=== PATIENT | female | born 1965 | race Caucasian/White ===

== ENCOUNTER 2019-04-22 10:20 | Emergency (ER) | payer BC, SELFPAY ==
[2019-04-22 10:21] VITALS: BP 136/85; PULSE 85; RESP 16; TEMP 36.8; O2SAT 94; BMI 28.3
--- NOTE | 2019-04-22 10:30 | CT_ITS ---
STUDY: CT ABDOMEN AND PELVIS WITH CONTRAST REASON FOR EXAM: Female, 54 years old. Several day history of right lower quadrant pain. RADIATION DOSAGE (If Supplied By Facility): CTDIvol = ( 16.99 ) mGy, DLP = ( 1158.19 ) mGycm TECHNIQUE: Transaxial images were obtained from the dome of the diaphragm to the symphysis pubis without oral contrast. 100 IV Isovue 370 was administered. Sagittal and coronal images were reconstructed. Individualized dose optimization techniques were used for this CT. COMPARISON: None. FINDINGS: The visualized lung bases are unremarkable. The visualized portions of the heart are within normal limits. There is decreased attenuation of the liver consistent with steatosis. There are surgical clips in the gallbladder fossa consistent with a prior cholecystectomy. There is a benign calcified granuloma of the spleen. Normal pancreas. I suspected 2.6 cm x 1.7 cm fat-containing nodule in the right adrenal gland suggestive of a myelolipoma. Normal right kidney. Normal left kidney. Normal visualized stomach. Normal small intestine. Moderate amount of fecal material is seen in the colon. The appendix is visualized and appears normal. Normal abdominal aorta. Normal inferior vena cava. Normal retroperitoneum. Normal urinary bladder. Normal abdominal wall. Normal osseous structures. CT/Abdomen/Pelvis W IV Cont ONLY IMPRESSION: Fatty infiltration of the liver. Findings suggestive of a 2.6 cm x 1.7 cm fat-containing nodule in the right adrenal gland. Electronically Signed: Eddy Tinajero, at 12:35 EDT , Service support ,
[2019-04-22 10:43] LABS: Bacteria 0 SEEN /hpf (None Seen); Mucous, Urine 0 SEEN /hpf (<or=2+); White Blood Cells 0 SEEN /hpf (0-5)
[2019-04-22 10:44] LABS: Color, Urine Yellow (Yellow); Glucose, Dipstick Normal (Normal); Ketone-Dipstick Negative (Negative); Leukocyte Esterase-Dipstick Negative /ul (Negative); Nitrite-Dipstick Negative (Negative); Occult Blood-Urine 10 /ul (Negative); Protein-Dipstick Negative (Negative); Specific Gravity, Urine 1.015 (1.002-1.030); Urine Bilirubin Dipstick Negative (Negative); Urine Clarity Sl. Cloudy (Clear); Urine Urobilinogen Normal (Normal)
[2019-04-22 10:49] LABS: Red Blood Cells-Urine 0-5 SEEN /hpf (0-5); Squamous Epithelial Cells - UA 0-5 SEEN /hpf (5-10)
[2019-04-22] MEDS: 0.9% Normal Saline 1,000 ML 1000 ML IV (10:58)
[2019-04-22] MEDS: Ketorolac 15 MG/ML Vial IV (10:58)
[2019-04-22] MEDS: Ondansetron 4 MG/2 ML Vial IV (10:58)
[2019-04-22 11:01] LABS: Absolute Lymphocyte Count 2.55 X10^3/ul (0.83-4.51); Absolute Neutrophil Count 5.7 X10^3/uL (2.0-7.7); Basophil# 0.02 X10^3/uL; Basophil% 0.2 % (0-1); Eosinophils% 1.1 % (0-5); Hematocrit 41.5 % (37-47); Hemoglobin 13.7 g/dl (12.0-15.0); Lymphocyte # 2.55 X10^3/ul (4.0); Lymphocyte % 28.4 % (19-41); Mean Corpuscular Hgb 30.5 pg (27.0-32.0); Mean Corpuscular Volume 92.4 fL (81-99); Mean Platelet Vol. 9.3 fl (6.2-12.0); Monocyte# 0.61 X10^3/uL; Monocyte% 6.8 % (0-10); Neutrophil # 5.68 X10^3/uL (2.7-7.7); Neutrophil % 63.3 % (47-70); Platelet Count 312 K/mm3 (150-450); RBC Distribution Width CV 13.4 % (11.6-14.6); RBC Distribution Width SD 45.3 fl (35.1-43.9); Red Blood Count 4.49 M/mm3 (4.2-5.4)
[2019-04-22 11:02] LABS: POSITIVE COUNT NO; POSITIVE DIFFERENTIAL NO; POSITIVE MORPHOLOGY NO
--- NOTE | 2019-04-22 11:02 | ED.DCSUM_ITS ---
- ER Visit Summary Date of Service: 04/22/19 Chief Complaint: Abdominal pain History of Present Illness: The patient is a 54 F presents to the emergency department with 3 days of intermittent left lower quadrant abdominal pain. The patient symptoms began about 3 days ago. States she had a dull ache in her right lower quadrant. She states the pain comes and goes. Today, it is worse. She also admits to some low back pain. She states it comes in waves. She has had prior cholecystectomy and hysterectomy. She is never had a kidney stone. She denies any fevers. She has not had any vomiting. She is still urinating without issue. Physical Examination: Vital signs reviewed General: Well-nourished, well-developed Head: Normocephalic, atraumatic Eyes: Pupils equal and reactive, extraocular muscles intact Neck, supple, no lymphadenopathy Heart: Regular rate and rhythm Respiratory: No distress, clear bilaterally Abdomen: Soft, mildly tender in the lumen right lower quadrant without rebound or guarding, nondistended, no peritoneal signs Back: Nontender Extremities: Nontender, no edema, no cords Skin: Normal color no rash Neuro: Alert and oriented, no focal or lateralizing deficits Test Results: [] Emergency Department Course and Treatment: IV was established. Patient was given Toradol, Zofran, and fluids. She had resolution of her pain. Her pain does wax and wane and there does seem to be a colicky portion to it. Her urine shows some trace blood. Rest of her labs are unremarkable. CT does not demonstrate any acute intra-abdominal abnormality. My suspicion is that she may have a small stone that she is in the past or we can just not visualized. The patient does not want any analgesics. She has a normal-appearing appendix. I do feel that she is safe for outpatient therapy. Patient will be discharged home. Treatment Plan: [] Disposition: Discharge Impression: 1. Right lower quadrant abdominal pain This note was generated with [employer] dictation software. It may contain incorrect words, spelling, and punctuation that were not noted in review of the chart prior to signing ED Disposition - Plan for ED Patient: Instructions: ED Abdominal Pain Unkn Cause Referrals: Jose Luis Araiza MD [Primary Care Provider] -
[2019-04-22 11:14] LABS: ALB/GLOB Ratio 0.7 RATIO (0.9-2.4); AST(SGOT) 19 U/L (15-37); Alanine Aminotransfer ALT/SGPT 26 U/L (13-56); Albumin, Serum 3.5 g/dL (3.2-5.0); Alkaline Phosphatase 106 U/L (45-117); Anion Gap 9 (5-15); BUN 12 mg/dL (7-18); BUN/Creat Ratio 11.3 RATIO (10-20); Chloride 104 mmol/L (98-107); Creatinine, Serum 1.06 mg/dL (0.55-1.02); EST Glomerular Filtration Rate 58 mL/min (>60); Est Glom Filt Rate - Afr Amer 70 mL/min (>60); Estimated Creatinine Clearance 55.86 ml/min; Globulin 5.2 g/dL (2.2-4.2); Glucose 84 mg/dL (74-106); Lipase 101 U/L (73-393); Potassium 3.8 mmol/L (3.5-5.1); Protein, Total 8.7 g/dL (6.4-8.2); Sodium Level 140 mmol/L (136-145)
[2019-04-22 12:51] VITALS: BP 126/86; PULSE 65; RESP 14; O2SAT 99
== END 2019-04-22 13:00 | disposition home or self-care (01) ==
PROVIDERS: Emergency Provider Emergency Medicine; Family Provider Family Medicine; PCP Family Medicine
DX: R10.31 Right lower quadrant pain (principal); R10.32 Left lower quadrant pain; M54.5 Low back pain; R11.0 Nausea; Z90.710 Acquired absence of both cervix and uterus; Z90.49 Acquired absence of other specified parts of digestive tract
CPT/HCPCS: 74177; 80053; 81001; 83690; 85025; 96361; 96374; 96375; 99284; J7030; Q9967; J2405

== ENCOUNTER 2025-09-21 11:35 | Observation (INO) | payer OTHER, SELFPAY ==
[2025-09-21] VITALS (17 sets, daily range): BP systolic 99–154; BP diastolic 70–113; PULSE 61–82; RESP 16–19; TEMP 36.5–36.7; O2SAT 95–100; BMI 31.2; BMI 34.7
--- NOTE | 2025-09-21 11:39 | EKG12_ITS ---
Test Reason : Blood Pressure : */* mmHG Vent. Rate : 70 BPM Atrial Rate : 70 BPM P-R Int : 138 ms QRS Dur : 82 ms QT Int : 402 ms P-R-T Axes : 31 -4 1 degrees QTcB Int : 434 ms Normal sinus rhythm Normal ECG Confirmed by EDUIN REYES, BRIGITTE ([id number]), video news editor HAJA CHANEL ([id number]) on 09/22/2025 9:17:55 AM Referred By: Confirmed By: BRIGITTE DENNY MD
--- NOTE | 2025-09-21 11:39 | CT_ITS ---
PROCEDURE: STROKE BRAIN/HEAD WITHOUT CONT 09/21/2025 REASON FOR EXAM: NEURO DEFICIT, ACUTE, STROKE SUSPECTED TECHNIQUE: Procedure Code: CTBR.ST Modality: CT Procedure: STROKE BRAIN/HEAD WITHOUT CONT Coronal and Sagittal reconstruction series were provided. One or more dose reduction techniques were used (e.g., Automated exposure control, adjustment of the mA and/or kV according to patient size, use of iterative reconstruction technique. RADIATION DOSE SUMMARY: CTDlvol: 44.99 mGy DLP: 745.49 mGycm COMPARISON: None. FINDINGS: Brain: Within normal limits for age. No acute restricted diffusion. No acute intracranial hemorrhage. No mass-effect or midline shift. The craniocervical junction is unremarkable. No orbital abnormalities. CSF Spaces: Unremarkable. Sinuses/Mastoids: Clear. Bones: No acute bony abnormalities. CT/STROKE Brain/Head without Cont IMPRESSION: Unremarkable CT head without acute intracranial abnormalities. Stroke Alert: No acute intracranial abnormalities The critical findings in the findings and impression above were relayed directl y by me by telephone to Jamin Joya on 09/21/2025 at 12:03 pm with readback verification. Reading Location: [facility]
--- NOTE | 2025-09-21 11:39 | CT_ITS ---
PROCEDURE: STROKE CTA HEAD AND NECK W/CON 09/21/2025 REASON FOR EXAM: NEURO DEFICIT, ACUTE, STROKE SUSPECTED TECHNIQUE: Procedure Code: CTCTA.ST.HN Modality: CT Procedure: STROKE CTA HEAD AND NECK W/CON Multiplanar Sagittal and Coronal images were obtained. 3D post processing was performed CONTRAST: Isovue 370 VOLUME: 100 mL One or more dose reduction techniques were used (e.g., Automated exposure control, adjustment of the mA and/or kV according to patient size, use of iterative reconstruction technique). RADIATION DOSE SUMMARY: CTDlvol: 39.89 mGy DLP: 700.30 mGycm COMPARISON: 09/21/2025 FINDINGS: Aortic Arch: Normal size and branching pattern. No significant atherosclerotic plaque. Brachiocephalic and Subclavians: Unremarkable RIGHT Carotid: Right CCA: Unremarkable. Right ICA: Unremarkable. Maximum stenosis (NASCET): 0 % Right ECA: Unremarkable. LEFT Carotid: Left CCA: Unremarkable. Left ICA: Unremarkable. Maximum stenosis (NASCET): 0 % Left ECA: Unremarkable. Vertebrals: Codominant. Arise from the subclavians. Both vertebrals form the basilar. RIGHT Vertebral: Unremarkable. LEFT Vertebral: Unremarkable. Anatomy: Robinson of [place] anatomy is normal. Aneurysm or avm: No intracranial aneurysms or large vascular malformations are identified. Anterior cerebral arteries: Unremarkable: Middle cerebral arteries: Unremarkable. Basilar artery: Unremarkable. Posterior cerebral arteries: Unremarkable. Other major branches of the posterior circulation: Unremarkable. Major venous structures: Unremarkable. Other findings: No suspicious enhancing lesion, no airway narrowing or deviation. No suspicious adenopathy. Bony structures show degenerative change. Thyroid gland is unremarkable, lung apices are clear CT/STROKE CTA Head AND Neck W/Con IMPRESSION: No CTA evidence of ICA or CCA stenosis No CTA evidence of intracranial stenosis or vaso occlusive disease No aneurysm or vascular malformation Patent vertebral arteries Reading Location: [id number]
--- NOTE | 2025-09-21 11:40 | EDS_ITS ---
HPI History of Present Illness Chief Complaint: Neuro S/Sx Narrative Narrative: Patient is a 60-year-old female with past medical history of asthma, diabetes, hypertension who presents to the emergency department with a chief complaint of changes in vision as well as dizziness and feeling off. States that her symptoms started this morning and notes that when she will look at people first thing she noted that it looked like they were in half it was both of her eyes she states that this is getting better now. She states that since she is still feeling off and not her normal so she came here to be further evaluated. States that she is not on any blood pressure medication. Denies any head injuries or traumas. PFSH PFSH Medical History no medical history Home Medications ?Medication ?Instructions ?Recorded ?Last Taken ?Type chgwige-xjxyuzdiqjdgh-eaprxpin 250 1 tab PO Q6H PRN pa in 09/21/25 09/18/25 History mg-250 mg-65 mg tablet (Excedrin Extra Strength) fluticasone propionate 50 1 spray intranasal BID 09/21 Unknown History mcg/actuation nasal spray,suspension tirzepatide 5 mg/0.5 mL 5 mg subcut QWEEK 09/21/25 1 11/14/24 History subcutaneous pen injector (Mouncarolro) Allergy/AdvReac Type Severity Reaction Status Date / Time latex Allergy Rash Verified 09/21/25 11:36 acetaminophen (From AdvReac Other Verified 09/21/25 11:36 Darvocet-N 100) propoxyphene (From AdvReac Other Verified 09/21/25 11:36 Darvocet-N 100) tramadol (From Ultram) AdvReac Other Verified 09/21/25 11:36 Family History no significant family his Surgical History no surgical history Social History Smoking Status: Never smoker alcohol intake: current alcohol intake frequency: a few times a week Alcohol type: wine ROS ROS ED ROS Narrative Constitutional: Denies any fevers, chills, headaches Eyes: Complains of changes in vision as noted above denies double vision Cardiovascular: Denies chest pain or palpitations Respiratory: Denies coughing wheezing shortness of breath Abdomen: Denies abdominal pain nausea vomit diarrhea : Denies any urinary symptoms Neurological: Denies any numbness, weakness, tingling Musculoskeletal: Denies back pain Skin: Denies any rashes or lesions EXAM Physical Exam Narrative Exam Narrative: General: Patient was l evaluated in triage resting comfortably in the chair did not appear to be in acute distress Head: Atraumatic, normocephalic Eyes: PERRL bilaterally, EOMI bilaterally, no conjunctival injection noted no vertical or horizontal nystagmus noted on exam Neck: Soft, supple, trachea midline Cardiovascular: Regular rate and rhythm Respiratory: Clear to auscultation bilaterally Abdomen: Soft, nondistended, nontender to palpation Extremities: +5/5 strength noted in the bilateral upper and lower extremities Neurological: Patient following commands and that she was at [facility] year is 2024 Skin: Warm, dry, tact no rashes or lesions noted Const Vital Signs: 09/21/25 11:36 09/21/25 11:57 09/21/25 12:02 Temperature 97.9 F Temperature Source Oral Pulse Rate 77 80 Respiratory Rate 16 19 H Blood Pressure 154/113 H 152/113 H 131/85 H Blood Pressure Mean 126 126 100 Pulse Ox 100 100 Oxygen Delivery Method Room Air 09/21/25 12:07 09/21/25 12:09 09/21/25 13:00 Temperature Temperature Source Pulse Rate 77 70 Respiratory Rate 16 Blood Pressure 123/91 H 110/87 H Blood Pressure Mean 101 94 Pulse Ox 100 100 99 Oxygen Delivery Method Room Air Room Air 09/21/25 13:57 Temperature 97.9 F Temperature Source Pulse Rate 70 Respiratory Rate 16 Blood Pressure 110/87 H Blood Pressure Mean 94 Pulse Ox 99 Oxygen Delivery Method MDM MDM MDM Narrative Medical decision making narrative: Patient is a 60-year-old female who presented to the emergency department the chief complaint of changes in vision, dizziness not feeling well starting at 10:30 AM. On the differential diagnose includes but limited to intracranial hemorrhage, ischemic stroke, TIA, hypertensive emergency, electrolyte abnormality, ACS. Once the workup is obtained and reviewed she will be reevaluated. Patient is not a tenecteplase candidate as her symptoms are improving as she arrived here to the emergency department Patient CBC reviewed and showed no evidence leukocytosis white blood count 10.2, he was 13, plate count 329. Patient INR normal at 1, PT of 13.3. Patient sodium was noted to be normal at 137, potassium low indicating hypokalemia at 2.6 magnesium level be checked and she will be given 60 mill equivalents of supplementation here in the emergency department. Patient's creatinine was 0.61 and her calcium level low at 6.2 I did add a ionized calcium on and she will be given 2 g of calcium gluconate. Patient troponin was 6 with a EKG reviewed as well which showed sinus rhythm with a rate of 70 bpm ID interval 138. Patient CT head brain without contrast showed no acute intracranial findings. Patient CTA head and neck was reviewed which showed no evidence of large vessel occlusion and no vascular malformations noted patent vertebral arteries noted. Patient was evaluated by teleneurology Dr. Baptiste who states that the patient should be admitted for further stroke workup. Patient was given 325 mg of aspirin. Will discuss case with hospitalist for admission Discussed case with hospitalist Dr. Carlos huggins except patient for admission. Patient was notified is agreeable to plan all question concerns answered. Critical care time 37 minutes Lab Data Labs: Laboratory Results - last 24 hr 09/21/25 09/21/25 11:55 12:42 WBC 10.2 RBC 4.27 Hgb 13.0 Hct 39.2 MCV 91.8 MCH 30.4 MCHC 33.2 RDW Std Deviation 44.8 H RDW Coeff of Radha 13.2 Plt Count 329 MPV 9.4 Immature Gran % (Auto) 0.400 Neut % (Auto) 65.6 Lymph % (Auto) 26.7 [place] % (Auto) 6.6 Eos % (Auto) 0.4 Baso % (Auto) 0.3 Absolute Neuts (auto) 6.7 Absolute Lymphs (auto) 2.72 Nucleated RBC % 0 PT 13.3 INR 1.0 APTT 23.8 L Sodium 137 Potassium 2.6 L* Chloride 110 H Carbon Dioxide 18.2 L Anion Gap 10 BUN 10 Creatinine 0.61 L Estim Creat Clear Calc 93.12 Est GFR (MDRD) Non-Af 103 BUN/Creatinine Ratio 15.9 Glucose 80 Calcium 6.2 L* Troponin T High Sens 6 POC Glucose 89 Radiography Diagnostic Testing: Clinical Impression(s) from Imaging Studies Brain CT 09/21/25 11:39 IMPRESSION: Unremarkable CT head without acute intracranial abnormalities. Stroke Alert: No acute intracranial abnormalities The critical findings in the findings and impression above were relayed directly by me by telephone to Jamin Joya on 09/21/2025 at 12:03 pm with readback verification. Reading Location: [id number] Head/Neck CTA 09/21/25 11:39 IMPRESSION: No CTA evidence of ICA or CCA stenosis No CTA evidence of intracranial stenosis or vaso occlusive disease No aneurysm or vascular malformation Patent vertebral arteries Reading Location: [id number] Discharge Plan Dx/Rx/DC Orders Clinical Impression: Hypertension, Change in vision, Brain TIA, Dizziness Disposition Disposition: Acute Care Hospital [facility]
--- OUTSIDE RECORDS SUMMARY | 2025-09-21 11:54 | XMS RPT_ITS | CCD ---
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 130 Very High >130 ASCVD RISK THERAPEUTIC TARGET CATEGORY APO B (mg/dL) Very High Risk <80 (if extreme risk <70) High Risk <90 Moderate Risk <90 Performed At: [facility] [id number] Alex Shea MD Ph:[phone] Performed By: #### G FR, MG, CMP, 838762, VIDH, A1C, 388741, TSHR, LIPID, FES, FERR #### [address] [address] #### B12 #### [address] [address] MALBRon 02-21-2025 U Creatinine 148.3 mg/dL Normal [facility] Comment on above: Performed By: #### G FR, MG, CMP, 790531, VIDH, A1C, 999088, TSHR, LIPID, FES, FERR #### [address] [address] #### B12 #### [address] [address] U Microalb 7.4 mg/L Normal [facility] Comment on above: Performed By: #### G FR, MG, CMP, 953339, VIDH, A1C, 480057, TSHR, LIPID, FES, FERR #### [address] [address] #### B12 #### [address] [address] U Ratio Alb/Cre 5 mg/G Normal 0-30 [facility] Comment on above: Performed By: #### G FR, MG, CMP, 463862, VIDH, A1C, 230833, TSHR, LIPID, FES, FERR #### [address] [address] #### B12 #### [address] [address] APOBon 02-14-2025 Apolipoprotein B [Mass/Vol] Not performed Normal [facility] Comment on above: Result Comment: Test not performed. Insufficient specimen to perform or complete analysis. CONTACTED YOUR FACILITY VIA EMAIL ON 02-13-2025 Desirable < 90 Borderline High 90 - 99 High 100 - 130 Very High >130 ASCVD RISK THERAPEUTIC TARGET CATEGORY APO B (mg/dL) Very High Risk <80 (if extreme risk <70) High Risk <90 Moderate Risk <90 Performed At: [facility] [id number] Alex Shea MD Ph:[phone] Performed By: #### G FR, MG, CMP, 901901, VIDH, A1C, 305114, TSHR, LIPID, FES, FERR #### [address] [address] #### B12 #### [address] [address] LIPOAon 02-10-2025 Lipoprotein a [Moles/Vol] 18.8 nmol/L Normal <75.0 [facility] Comment on above: Result Comment: Note : Values greater than or equal to 75.0 nmol/L may indicate an independent risk factor for CHD, but must be evaluated with caution when applied to non- populations due to the influence of genetic factors on Lp(a) across ethnicities. Performed At: [facility] [id number] Ale Patton PhD Ph:[phone] Performed By: #### G FR, MG, CMP, 771971, VIDH, A1C, 799276, TSHR, LIPID, FES, FERR #### [address] [address] #### B12 #### [address] [address] .GFRon 02-07-2025 Estimated Glomerular Filtration Rate 71 ml/min/1.73sqm Normal [facility] Comment on above: Result Comment: Stages of Chronic Kidney Disease (CKD) Stage Description eGFR(ml/min/1.73 sq.m.) CKD 1 Normal kidney function or >=90 normal kindney function with possible kidney damage (ex. Proteinuria) CKD 2 Kidney damage with mild loss 60-89 of kidney function CKD 3a Mild to moderate loss of kidney 45-59 function CKD 3b Moderate to severe loss of 30-44 of kindey function CKD 4 Severe loss of kidney function 15-29 CKD 5 Kidney failure <15 Note: (go live 2024) the eGFR calculation was updated to the 2020 CKD-EPI creatinine equation without a race factor to calculate the eGFR results. Performed By: #### G FR, MG, CMP, 107358, VIDH, A1C, 466845, TSHR, LIPID, FES, FERR #### [address] [address] #### B12 #### [address] [address] A1Con 02-07-2025 Glucose [Mass/Vol] 128 mg/dL Normal [facility] Comment on above: Result Comment: Bethany mated Average Glucose calculated by equation ((28.7xA1C)-46.7) Estimated average glucose (eAG) is a calculated value from Hemoglobin A1C and is patient representative of the average blood glucose level in the last 2-3 month period. Normal range: less than 114 mg/dL Performed By: #### G FR, MG, CMP, 617072, VIDH, A1C, 561795, TSHR, LIPID, FES, FERR #### [address] [address] #### B12 #### [address] [address] HbA1c (Bld) [Mass fraction] 6.1 % Normal 4.3-6.4 [facility] Comment on above: Performed By: #### G FR, MG, CMP, 087659, VIDH, A1C, 657285, TSHR, LIPID, FES, FERR #### [address] [address] #### B12 #### [address] [address] B12on 02-07-2025 Cobalamin (Vitamin B12) [Mass/Vol] 443 pg/mL Normal 211-911 [facility] Comment on above: Performed By: #### G FR, MG, CMP, 738855, VIDH, A1C, 612678, TSHR, LIPID, FES, FERR #### [address] [address] #### B12 #### [address] [address] CMPon 02-07-2025 Albumin Level 3.5 G/dL Normal 3.5-5.0 [facility] Comment on above: Performed By: #### G FR, MG, CMP, 057799, VIDH, A1C, 050450, TSHR, LIPID, FES, FERR #### [address] [address] #### B12 #### [address] [address] Albumin/Globulin [Mass ratio] 0.7 {ratio} Low 1.1-2.5 [facility] Comment on above: Performed By: #### G FR, MG, CMP, 462591, VIDH, A1C, 200512, TSHR, LIPID, FES, FERR #### [address] [address] #### B12 #### [address] [address] ALP [Catalytic activity/Vol] 108 U/L Normal 40-135 [facility] Comment on above: Performed By: #### G FR, MG, CMP, 449320, VIDH, A1C, 462515, TSHR, LIPID, FES, FERR #### [address] [address] #### B12 #### [address] [address] ALT [Catalytic activity/Vol] 66 U/L High 14-59 [facility] Comment on above: Performed By: #### G FR, MG, CMP, 974126, VIDH, A1C, 985371, TSHR, LIPID, FES, FERR #### [address] [address] #### B12 #### [address] [address] AST [Catalytic activity/Vol] 39 U/L Normal 10-40 [facility] Comment on above: Performed By: #### G FR, MG, CMP, 977105, VIDH, A1C, 993837, TSHR, LIPID, FES, FERR #### [place] [address] #### B12 #### [place] [address] Bili Total 0.8 mg/dL Normal 0.2-1.0 [facility] Comment on above: Result Comment: Use of this assay is not recommended for patients undergoing treatment with eltrombopag due to the potential for falsely elevated results. Performed By: #### G FR, MG, CMP, 547619, VIDH, A1C, 322498, TSHR, LIPID, FES, FERR #### [place] [address] #### B12 #### [place] [address] BUN/Creatinine Ratio 13 ratio Normal 7-27 [facility] Comment on above: Performed By: #### G FR, MG, CMP, 488778, VIDH, A1C, 924218, TSHR, LIPID, FES, FERR #### [place] [address] #### B12 #### [place] [address] Calcium [Mass/Vol] 9.1 mg/dL Normal 8.4-10.2 [facility] Comment on above: Performed By: #### G FR, MG, CMP, 296139, VIDH, A1C, 104473, TSHR, LIPID, FES, FERR #### [address] [address] #### B12 #### [address] [address] Chloride [Moles/Vol] 104 mmol/L Normal 98-107 [facility] Comment on above: Performed By: #### G FR, MG, CMP, 461321, VIDH, A1C, 190438, TSHR, LIPID, FES, FERR #### [place] [address] #### B12 #### [address] [address] CO2 [Moles/Vol] 27 mmol/L Normal 22-29 [facility] Comment on above: Performed By: #### G FR, MG, CMP, 501255, VIDH, A1C, 355335, TSHR, LIPID, FES, FERR #### [place] [address] #### B12 #### [address] [address] Creatinine [Mass/Vol] 0.94 mg/dL Normal 0.55-1.02 [facility] Comment on above: Result Comment: Test ing performed on Siemens Dimension EXL analyzer using a modified kinetic Jenelle technique. Performed By: #### G FR, MG, CMP, 344281, VIDH, A1C, 887354, TSHR, LIPID, FES, FERR #### [place] [address] #### B12 #### [address] [address] Electrolyte Balance 7.0 mEq/L Normal 4.0-15.0 [facility] Comment on above: Performed By: #### G FR, MG, CMP, 068989, VIDH, A1C, 605645, TSHR, LIPID, FES, FERR #### [place] [address] #### B12 #### [address] [address] Globulin 4.9 G/dL High 1.5-3.8 [facility] Comment on above: Performed By: #### G FR, MG, CMP, 032876, VIDH, A1C, 169868, TSHR, LIPID, FES, FERR #### [address] [address] #### B12 #### [address] [address] Glucose [Mass/Vol] 99 mg/dL Normal 70-105 [facility] Comment on above: Performed By: #### G FR, MG, CMP, 999848, VIDH, A1C, 294426, TSHR, LIPID, FES, FERR #### [address] [address] #### B12 #### [address] [address] Potassium [Moles/Vol] 4.1 mmol/L Normal 3.5-5.1 [facility] Comment on above: Performed By: #### G FR, MG, CMP, 162135, VIDH, A1C, 010380, TSHR, LIPID, FES, FERR #### [address] [address] #### B12 #### [address] [address] Sodium [Moles/Vol] 138 mmol/L Normal 136-145 [facility] Comment on above: Performed By: #### G FR, MG, CMP, 249909, VIDH, A1C, 833873, TSHR, LIPID, FES, FERR #### [address] [address] #### B12 #### [address] [address] Total Protein 8.4 G/dL High 6.4-8.2 [facility] Comment on above: Performed By: #### G FR, MG, CMP, 556770, VIDH, A1C, 557732, TSHR, LIPID, FES, FERR #### [address] [address] #### B12 #### [address] [address] Urea nitrogen [Mass/Vol] 12 mg/dL Normal 7-18 [facility] Comment on above: Performed By: #### G FR, MG, CMP, 199465, VIDH, A1C, 789828, TSHR, LIPID, FES, FERR #### [place] [address] #### B12 #### [address] [address] Tati 02-07-2025 Ferritin [Mass/Vol] 88.0 ng/mL Normal 8.0-252.0 [facility] Comment on above: Performed By: #### G FR, MG, CMP, 776158, VIDH, A1C, 446508, TSHR, LIPID, FES, FERR #### [place] [address] #### B12 #### [address] [address] FESon 02-07-2025 Iron [Mass/Vol] 91 ug/dL Normal 50-170 [facility] Comment on above: Performed By: #### G FR, MG, CMP, 591326, VIDH, A1C, 190313, TSHR, LIPID, FES, FERR #### [place] [address] #### B12 #### [place] [address] Iron Sat 29 % Normal [facility] Comment on above: Performed By: #### G FR, MG, CMP, 906665, VIDH, A1C, 062006, TSHR, LIPID, FES, FERR #### [place] [address] #### B12 #### [place] [id number] TIBC 309 mcg/dL Normal 250-450 [facility] Comment on above: Performed By: #### G FR, MG, CMP, 472286, VIDH, A1C, 435585, TSHR, LIPID, FES, FERR #### [address] [address] #### B12 #### [address] [address] LIPIDon 02-07-2025 Cholesterol [Mass/Vol] 190 mg/dL Normal 0-200 [facility] Comment on above: Result Comment: Chol esterol Reference Interval: Less than 200 Desirable 200-239 Borderline high risk 240 and above High risk Performed By: #### G FR, MG, CMP, 125073, VIDH, A1C, 873691, TSHR, LIPID, FES, FERR #### [address] [address] #### B12 #### [address] [address] Cholesterol in HDL [Mass/Vol] 53 mg/dL Normal 40-60 [facility] Comment on above: Performed By: #### G FR, MG, CMP, 300933, VIDH, A1C, 276107, TSHR, LIPID, FES, FERR #### [address] [address] #### B12 #### [address] [address] Cholesterol in LDL [Mass/Vol] 122 mg/dL Normal 0-130 [facility] Comment on above: Performed By: #### G FR, MG, CMP, 084631, VIDH, A1C, 071211, TSHR, LIPID, FES, FERR #### [address] [address] #### B12 #### [address] [address] Triglyceride [Mass/Vol] 74 mg/dL Normal 0-150 [facility] Comment on above: Result Comment: Trig lyceride Reference Interval: Less than 150 Normal 150-199 Borderline high risk 200-499 High risk 500 or higher Very high risk Performed By: #### G FR, MG, CMP, 721532, VIDH, A1C, 329977, TSHR, LIPID, FES, FERR #### [address] [address] #### B12 #### [address] [address] MGon 02-07-2025 Magnesium [Mass/Vol] 1.9 mg/dL Normal 1.8-2.4 [facility] Comment on above: Performed By: #### G FR, MG, CMP, 045636, VIDH, A1C, 993499, TSHR, LIPID, FES, FERR #### [address] [address] #### B12 #### [place] [address] TSHRon 02-07-2025 TSH Qn 2.78 m[IU]/L Normal 0.36-3.74 [facility] Comment on above: Performed By: #### G FR, MG, CMP, 806069, VIDH, A1C, 561498, TSHR, LIPID, FES, FERR #### [address] [address] #### B12 #### [place] [address] VIDHon 02-07-2025 Vit. D 25-Hydroxy 11.8 ng/mL Normal [facility] Comment on above: Result Comment: Inte rpretive Values Based on Total 25(OH) Vitamin D: Deficient <20 ng/mL Insufficient 20 - <30 ng/mL Sufficient 30-100 ng/mL Performed By: #### G FR, MG, CMP, 822787, VIDH, A1C, 557557, TSHR, LIPID, FES, FERR #### [address] [address] #### B12 #### [place] [address] .Auto Diffon 12-05-2024 Basophil, Absolute 0.0 10 3/mcL Normal 0.0-0.2 [facility] Comment on above: Performed By: #### G FR, MG, CMP, 048655, VIDH, A1C, 407241, TSHR, LIPID, FES, FERR #### [place] [address] #### B12 #### [address] [address] Basophils/100 WBC (Bld) 0.5 % Normal 0.0-2.5 [facility] Comment on above: Performed By: #### G FR, MG, CMP, 448311, VIDH, A1C, 330042, TSHR, LIPID, FES, FERR #### [place] [address] #### B12 #### [address] [address] Eosinophil, Absolute 0.0 10 3/mcL Normal 0.0-0.7 [facility] Comment on above: Performed By: #### G FR, MG, CMP, 614256, VIDH, A1C, 717280, TSHR, LIPID, FES, FERR #### [place] [address] #### B12 #### [address] [address] Eosinophils/100 WBC (Bld) 0.5 % Normal 0.0-7.0 [facility] Comment on above: Performed By: #### G FR, MG, CMP, 259668, VIDH, A1C, 275788, TSHR, LIPID, FES, FERR #### [place] [address] #### B12 #### [address] [address] Lymphocyte, Absolute 2.6 10 3/mcL Normal 0.9-4.3 [facility] Comment on above: Performed By: #### G FR, MG, CMP, 427707, VIDH, A1C, 449873, TSHR, LIPID, FES, FERR #### [place] [address] #### B12 #### [address] [address] Lymphocytes/100 WBC (Bld) 53.8 % High 20.0-40.0 [facility] Comment on above: Performed By: #### G FR, MG, CMP, 796320, VIDH, A1C, 904522, TSHR, LIPID, FES, FERR #### [address] [address] #### B12 #### [address] [address] Monocyte, Absolute 0.5 10 3/mcL Normal 0.1-1.4 [facility] Comment on above: Performed By: #### G FR, MG, CMP, 950943, VIDH, A1C, 429654, TSHR, LIPID, FES, FERR #### [address] [address] #### B12 #### [address] [address] Monocytes/100 WBC (Bld) 10.2 % Normal 2.0-13.0 [facility] Comment on above: Performed By: #### G FR, MG, CMP, 351997, VIDH, A1C, 832140, TSHR, LIPID, FES, FERR #### [address] [address] #### B12 #### [address] [address] Neutrophils/100 WBC (Bld) 35.0 % Low 50.0-75.0 [facility] Comment on above: Performed By: #### G FR, MG, CMP, 962367, VIDH, A1C, 420172, TSHR, LIPID, FES, FERR #### [address] [address] #### B12 #### [address] [address] .GFRon 12-05-2024 GFR 68 ml/min/1.73sqm Normal [facility] Comment on above: Result Comment: GFR Population mean for , Non- Americans Ages 20-29 = 116 mL/min/1.73 sq.m. Ages 30-39 = 107 mL/min/1.73 sq.m. Ages 40-49 = 99 mL/min/1.73 sq.m. Ages 50-59 = 93 mL/min/1.73 sq.m. Ages 60-69 = 85 mL/min/1.73 sq.m. Ages 70+ = 75 mL/min/1.73 sq.m. Chronic Kidney Disease: Less than 60 mL/min/1.73 square meters End Stage Renal Disease: Less than 15 mL/min/1.73 square meters Performed By: #### G FR, MG, CMP, 481600, VIDH, A1C, 654436, TSHR, LIPID, FES, FERR #### [place] [address] [place], [place] [address] #### B12 #### [address] [address] GFR Non- 56 ml/min/1.73sqm Normal [facility] Comment on above: Result Comment: GFR Population mean for , Non- Americans Ages 20-29 = 116 mL/min/1.73 sq.m. Ages 30-39 = 107 mL/min/1.73 sq.m. Ages 40-49 = 99 mL/min/1.73 sq.m. Ages 50-59 = 93 mL/min/1.73 sq.m. Ages 60-69 = 85 mL/min/1.73 sq.m. Ages 70+ = 75 mL/min/1.73 sq.m. Chronic Kidney Disease: Less than 60 mL/min/1.73 square meters End Stage Renal Disease: Less than 15 mL/min/1.73 square meters Performed By: #### G FR, MG, CMP, 916436, VIDH, A1C, 225823, TSHR, LIPID, FES, FERR #### [place] [address] [place], [place] [address] #### B12 #### [address] [address] .MDWon 12-05-2024 Monocyte Distribution Width 25.64 High 0.00-20.00 [facility] Comment on above: Result Comment: For adults in ED, MDW>20.0 may be associated with a higher risk of sepsis during the first 12hrs of hospital admission Performed By: #### G FR, MG, CMP, 193607, VIDH, A1C, 322405, TSHR, LIPID, FES, FERR #### [address] [address] #### B12 #### [address] [address] .NEUABSon 12-05-2024 Neutrophil, Absolute 1.7 10 3/mcL Low 2.3-8.1 [facility] Comment on above: Performed By: #### G FR, MG, CMP, 839952, VIDH, A1C, 345097, TSHR, LIPID, FES, FERR #### [address] [address] #### B12 #### [address] [address] BMPon 12-05-2024 BUN/Creatinine Ratio 10 ratio Normal 7-27 [facility] Comment on above: Performed By: #### G FR, MG, CMP, 315842, VIDH, A1C, 127060, TSHR, LIPID, FES, FERR #### [place] [address] #### B12 #### [address] [address] Calcium [Mass/Vol] 8.6 mg/dL Normal 8.4-10.2 [facility] Comment on above: Performed By: #### G FR, MG, CMP, 993450, VIDH, A1C, 029390, TSHR, LIPID, FES, FERR #### [address] [address] #### B12 #### [address] [address] Chloride [Moles/Vol] 98 mmol/L Normal 98-107 [facility] Comment on above: Performed By: #### G FR, MG, CMP, 879564, VIDH, A1C, 559178, TSHR, LIPID, FES, FERR #### [address] [address] #### B12 #### [address] [address] CO2 [Moles/Vol] 35 mmol/L High 22-29 [facility] Comment on above: Performed By: #### G FR, MG, CMP, 664371, VIDH, A1C, 391396, TSHR, LIPID, FES, FERR #### [address] [address] #### B12 #### [address] [address] Creatinine [Mass/Vol] 1.02 mg/dL Normal 0.55-1.02 [facility] Comment on above: Result Comment: Test ing performed on Siemens Dimension EXL analyzer using a modified kinetic Jenelle technique. Performed By: #### G FR, MG, CMP, 274406, VIDH, A1C, 487184, TSHR, LIPID, FES, FERR #### [place] [address] #### B12 #### [address] [address] Electrolyte Balance 4.0 mEq/L Normal 4.0-15.0 [facility] Comment on above: Performed By: #### G FR, MG, CMP, 498053, VIDH, A1C, 981223, TSHR, LIPID, FES, FERR #### [address] [address] #### B12 #### [address] [address] Glucose [Mass/Vol] 91 mg/dL Normal 70-105 [facility] Comment on above: Performed By: #### G FR, MG, CMP, 154664, VIDH, A1C, 688007, TSHR, LIPID, FES, FERR #### [address] [address] #### B12 #### [address] [address] Potassium [Moles/Vol] 3.0 mmol/L Low 3.5-5.1 [facility] Comment on above: Performed By: #### G FR, MG, CMP, 700229, VIDH, A1C, 166261, TSHR, LIPID, FES, FERR #### [address] [address] #### B12 #### [address] [address] Sodium [Moles/Vol] 137 mmol/L Normal 136-145 [facility] Comment on above: Performed By: #### G FR, MG, CMP, 621453, VIDH, A1C, 516978, TSHR, LIPID, FES, FERR #### [address] [address] #### B12 #### [address] [address] Urea nitrogen [Mass/Vol] 10 mg/dL Normal 7-18 [facility] Comment on above: Performed By: #### G FR, MG, CMP, 121781, VIDH, A1C, 782142, TSHR, LIPID, FES, FERR #### [place] [address] #### B12 #### [address] [address] Erythrocyte distribution width (RBC) [Ratio] 13.0 % Normal 11.5-15.5 [facility] Comment on above: Performed By: #### G FR, MG, CMP, 994138, VIDH, A1C, 921950, TSHR, LIPID, FES, FERR #### [place] [address] #### B12 #### [address] [address] Hematocrit (Bld) [Volume fraction] 39.5 % Normal 34.0-46.0 [facility] Comment on above: Performed By: #### G FR, MG, CMP, 631768, VIDH, A1C, 903400, TSHR, LIPID, FES, FERR #### [place] [address] #### B12 #### [place] [address] Hgb 13.6 G/dL Normal 12.0-16.0 [facility] Comment on above: Performed By: #### G FR, MG, CMP, 398346, VIDH, A1C, 648693, TSHR, LIPID, FES, FERR #### [place] [address] #### B12 #### [place] [address] MCH (RBC) [Entitic mass] 31.0 pg Normal 27.0-33.0 [facility] Comment on above: Performed By: #### G FR, MG, CMP, 209757, VIDH, A1C, 608898, TSHR, LIPID, FES, FERR #### [place] [address] #### B12 #### [place] [address] MCHC 34.4 G/dL Normal 32.0-36.0 [facility] Comment on above: Performed By: #### G FR, MG, CMP, 661062, VIDH, A1C, 562929, TSHR, LIPID, FES, FERR #### [place] [address] #### B12 #### [place] [address] MCV (RBC) [Entitic vol] 90.1 fL Normal 80.0-99.0 [facility] Comment on above: Performed By: #### G FR, MG, CMP, 773536, VIDH, A1C, 166466, TSHR, LIPID, FES, FERR #### [place] [address] #### B12 #### [place] [address] Platelet 253 10 3/mcL Normal 150-450 [facility] Comment on above: Performed By: #### G FR, MG, CMP, 069321, VIDH, A1C, 622371, TSHR, LIPID, FES, FERR #### [place] [address] #### B12 #### [place] [address] Platelet mean volume (Bld) [Entitic vol] 7.0 fL Normal 6.6-10.5 [facility] Comment on above: Performed By: #### G FR, MG, CMP, 074003, VIDH, A1C, 869563, TSHR, LIPID, FES, FERR #### [place] [address] #### B12 #### [place] [address] RBC 4.39 10 6/mcL Normal 4.10-5.30 [facility] Comment on above: Performed By: #### G FR, MG, CMP, 371436, VIDH, A1C, 426547, TSHR, LIPID, FES, FERR #### [place] [address] #### B12 #### [place] [address] WBC 4.8 10 3/mcL Normal 4.5-10.8 [facility] Comment on above: Performed By: #### G FR, MG, CMP, 546053, VIDH, A1C, 696534, TSHR, LIPID, FES, FERR #### [place] [address] #### B12 #### [place] [address] CVFLURVon 12-05-2024 FLU A PCR Positive Abnormal Negative [facility] Comment on above: Performed By: #### C VFLURV #### [place] [address] FLU B PCR Negative Normal Negative [facility] Comment on above: Performed By: #### C VFLURV #### [place] [address] RSV PCR Negative Normal Negative [facility] Comment on above: Performed By: #### C VFLURV #### [facility] [address], [place] [address] SARS-CoV-2 (COVID-19) RNA LAURIE+probe Ql (Unsp spec) Negative Normal Negative [facility] Comment on above: Result Comment: Resu lts from the Xpert Xpress CoV-2/Flu/RSV plus test should be correlated with the clinical history, epidemiological data, and other data available to the clinical evaluating the patient. Performance of the Xpert Xpress CoV-2/Flu/RSV plus test has only been established in nasopharyngeal swab specimen. Erroneous test results might occur from improper specimen collection, failure to follow the recommended sample collection, handling and storage procedures, technical error, or sample mix-up. False negative results may occur if a virus is present at a level below the analytical limit of detection. Viral nucleic acid may persist in vivo, independent of virus viability. Detection of analyte target(s) does not imply that the corresponding virus(es) are infectious or are the causative agents for clinical symptoms. Recent patient exposure to FluMist or other live attenuated influenza vaccines may cause inaccurate positive results. Performed By: #### C VFLURV #### [facility] [address], [place] [address] LABORATORYOrdered By: SYSTEM SYSTEM on 12-05-2024 Troponin I.cardiac DL <= 0.01 ng/mL [Mass/Vol] ng/L Normal 0 - 51 ng/L AO ADM SS Comment on above: Interpretive Data: H igh Sensitive Troponin I Reference Ranges: Female: 0-51 ng/L Male: 0-76 ng/L Testing performed on [employer] using a homogeneous sandwich chemiluminescent immunoassay based on [employer] technology. Basophils (Bld) [#/Vol] 0.0 103/mcL Normal 0.0 - 0.2 10^3/mcL AO Workflow SS Basophils/100 WBC (Bld) 0.5 % Normal 0.0 - 2.5 % AO Workflow SS Calcium [Mass/Vol] 8.6 mg/dL Normal 8.4 - 10. 2 mg/dL AO ADM SS Chloride [Moles/Vol] 98 mmol/L Normal 98 - 10 7 mmol/L AO ADM SS CO2 [Moles/Vol] 35 mmol/L High 22 - 29 mmol/L AO ADM SS Creatinine [Mass/Vol] 1.02 mg/dL Normal 0.55 - 1.02 mg/dL AO ADM SS Comment on above: Interpretive Data: T esting performed on Siemens Dimension EXL analyzer using a modified kinetic Jenelle technique. Electrolyte Balance 4.0 mEq/L Normal 4.0 - 15 .0 mEq/L AO ADM SS Eosinophil, Absolute 0.0 103/mcL Normal 0.0 - 0 .7 10^3/mcL AO Workflow SS Eosinophils/100 WBC (Bld) 0.5 % Normal 0.0 - 7.0 % AO Workflow SS Erythrocyte distribution width (RBC) [Ratio] 13.0 % Normal 11.5 - 15.5 % AO Workflow SS GFR/1.73 sq M.predicted among blacks MDRD (S/P/Bld) [Vol rate/Area] 68 ml/min/1.73sqm Invalid Interpretation Code AO Chemistry S Comment on above: Interpretive Data: GFR Population mean for , Non- Americans Ages 20-29 = 116 mL/min/1.73 sq.m. Ages 30-39 = 107 mL/min/1.73 sq.m. Ages 40-49 = 99 mL/min/1.73 sq.m. Ages 50-59 = 93 mL/min/1.73 sq.m. Ages 60-69 = 85 mL/min/1.73 sq.m. Ages 70+ = 75 mL/min/1.73 sq.m. Chronic Kidney Disease: Less than 60 mL/min/1.73 square meters End Stage Renal Disease: Less than 15 mL/min/1.73 square meters GFR/1.73 sq M.predicted among non-blacks MDRD (S/P/Bld) [Vol rate/Area] 56 ml/min/1.73sqm Invalid Interpretation Code AO Chemistry S Comment on above: Interpretive Data: GFR Population mean for , Non- Americans Ages 20-29 = 116 mL/min/1.73 sq.m. Ages 30-39 = 107 mL/min/1.73 sq.m. Ages 40-49 = 99 mL/min/1.73 sq.m. Ages 50-59 = 93 mL/min/1.73 sq.m. Ages 60-69 = 85 mL/min/1.73 sq.m. Ages 70+ = 75 mL/min/1.73 sq.m. Chronic Kidney Disease: Less than 60 mL/min/1.73 square meters End Stage Renal Disease: Less than 15 mL/min/1.73 square meters Glucose [Mass/Vol] 91 mg/dL Normal 70 - 105 mg/dL AO ADM SS Hematocrit (Bld) [Volume fraction] 39.5 % Normal 34.0 - 46.0 % AO Workflow SS Hemoglobin (Bld) [Mass/Vol] 13.6 G/dL Normal 12.0 - 16.0 G/dL AO Workflow SS Lymphocytes (Bld) [#/Vol] 2.6 103/mcL Normal 0.9 - 4.3 10^3/mcL AO Workflow SS Lymphocytes/100 WBC (Bld) 53.8 % High 20.0 - 40.0 % AO Workflow SS MCH (RBC) [Entitic mass] 31.0 pg Normal 27.0 - 33.0 pg AO Workflow SS MCHC 34.4 G/dL Normal 32.0 - 36.0 G/dL AO Workflow SS MCV (RBC) [Entitic vol] 90.1 fL Normal 80.0 - 99.0 fL AO Workflow SS Monocyte distribution width Auto (Bld) [Entitic vol] 25.64 1 High 0.00 - 20.00 AO Workflow SS Comment on above: Result Comment: For adults in ED, MDW>20.0 may be associated with a higher risk of sepsis during the first 12hrs of hospital admission Monocytes (Bld) [#/Vol] 0.5 103/mcL Normal 0.1 - 1.4 10^3/mcL AO Workflow SS Monocytes/100 WBC (Bld) 10.2 % Normal 2.0 - 13.0 % AO Workflow SS Natriuretic peptide.B prohormone N-Terminal [Mass/Vol] 52 pg/mL Normal 0 - 125 pg/mL AO ADM SS Comment on above: Interpretive Data: N T-proBNP results of less than 300 pg/mL effectively rules out acute congestive heart failure with 99% negative predictive value. Neutrophils (Bld) [#/Vol] 1.7 103/mcL Low 2.3 - 8.1 10^3/mcL AO Workflow SS Neutrophils/100 WBC (Bld) 35.0 % Low 50.0 - 75.0 % AO Workflow SS Platelet mean volume (Bld) [Entitic vol] 7.0 fL Normal 6.6 - 10.5 fL AO Workflow SS Platelets (Bld) [#/Vol] 253 103/mcL Normal 150 - 450 10^3/mcL AO Workflow SS Potassium [Moles/Vol] 3.0 mmol/L Low 3.5 - 5.1 mmol/L AO ADM SS RBC (Bld) [#/Vol] 4.39 106/mcL Normal 4.10 - 5.3 0 10^6/mcL AO Workflow SS Sodium [Moles/Vol] 137 mmol/L Normal 136 - 145 mmol/L AO ADM SS Troponin I.cardiac DL <= 0.01 ng/mL [Mass/Vol] 8 ng/L Normal 0 - 51 ng/L AO ADM SS Comment on above: Interpretive Data: H igh Sensitive Troponin I Reference Ranges: Female: 0-51 ng/L Male: 0-76 ng/L Testing performed on TwoFish using a homogeneous sandwich chemiluminescent immunoassay based on [employer] technology. Urea nitrogen [Mass/Vol] 10 mg/dL Normal 7 - 18 mg/dL AO ADM SS Urea nitrogen/Creatinine [Mass ratio] 10 ratio Normal 7 - 27 ratio AO ADM SS WBC (Bld) [#/Vol] 4.8 103/mcL Normal 4.5 - 10.8 10^3/mcL AO Workflow SS LABORATORYOrdered By: Jennifer Stephens on 12-05-2024 FLUAV RNA LAURIE+probe Ql (Resp) Positive *ABN* (12/05/24 9:09 PM) Invalid Interpretation Code Negative AO Auto Urine SS FLUBV RNA LAURIE+probe Ql (Resp) Negative (12/05/24 9:09 PM) Normal Negative AO Auto Urine SS RSV RNA LAURIE+probe Ql (Resp) Negative (12/05/24 9:09 PM) Normal Negative AO Auto Urine SS SARS-CoV-2 (COVID-19) RNA LAURIE+probe Ql (Resp) Negative 6 (12/05/24 9:09 PM) Normal Negative AO Auto Urine SS Comment on above: Interpretive Data: R esults from the Xpert Xpress CoV-2/Flu/RSV plus test should be correlated with the clinical history, epidemiological data, and other data available to the clinical evaluating the patient. Performance of the Xpert Xpress CoV-2/Flu/RSV plus test has only been established in nasopharyngeal swab specimen. Erroneous test results might occur from improper specimen collection, failure to follow the recommended sample collection, handling and storage procedures, technical error, or sample mix-up. False negative results may occur if a virus is present at a level below the analytical limit of detection. Viral nucleic acid may persist in vivo, independent of virus viability. Detection of analyte target(s) does not imply that the corresponding virus(es) are infectious or are the causative agents for clinical symptoms. Recent patient exposure to FluMist or other live attenuated influenza vaccines may cause inaccurate positive results. PBNPon 12-05-2024 Natriuretic peptide B (Bld) [Mass/Vol] 52 pg/mL Normal 0-125 [facility] Comment on above: Result Comment: NT-p roBNP results of less than 300 pg/mL effectively rules out acute congestive heart failure with 99% negative predictive value. Performed By: #### G FR, MG, CMP, 817592, VIDH, A1C, 773317, TSHR, LIPID, FES, FERR #### [place] [address] #### B12 #### [address] 12-05-2024 High Sensitivity Troponin I <4 Normal 0-51 [facility] Comment on above: Result Comment: High Sensitive Troponin I Reference Ranges: Female: 0-51 ng/L Male: 0-76 ng/L Testing performed on TwoFish using a homogeneous sandwich chemiluminescent immunoassay based on [employer] technology. Performed By: #### G FR, MG, CMP, 459586, VIDH, A1C, 519643, TSHR, LIPID, FES, FERR #### [place] [address] #### B12 #### [place] [address] High Sensitivity Troponin I 8 ng/L Normal 0-51 [facility] Comment on above: Result Comment: High Sensitive Troponin I Reference Ranges: Female: 0-51 ng/L Male: 0-76 ng/L Testing performed on [employer]Fish using a homogeneous sandwich chemiluminescent immunoassay based on [employer] technology. Performed By: #### G FR, MG, CMP, 532144, VIDH, A1C, 584908, TSHR, LIPID, FES, FERR #### [place] [address] #### B12 #### [facility] [address] [place] [address] XR CHEST 1 VIEWon 12-05-2024 XR CHEST 1 VIEW ORIGINAL EXAMINATION: ONE XRAY VIEW OF THE CHEST12/05/2024 8:43 pm COMPARISON: None. HISTORY: ORDERING SYSTEM PROVIDED HISTORY: Reason for Exam: cough, headache, vomiting and diarrhea since monday. 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 There is no pulmonary vascular congestion. There is no focal consolidation. No significant volume pleural effusion. No pneumothorax. Slight elevation of the right hemidiaphragm. Right upper quadrant surgical clips. IMPRESSION: No acute cardiopulmonary process. Preliminary Report was Dictated by a Resident I have personally reviewed all of the images of this examination and agree with the resident findings and interpretation. Interpreted by: Adeel Melgar MD Preliminary Report By: Arturo Rodríguez Electronically signed By Adeel Melgar MD Dictated Date: 12/05/2024 9:13:28 PM Prelim Date: 12/05/2024 9:14:22 PM Sign Date: 12/05/2024 10:09:22 PM Ordering Provider: ELISABETH Solano [facility] CBC W Auto Differential pane l (Bld)on 06-08-2023 Basophils (Bld) [#/Vol] 0.04 10*3/uL <0.11 k/uL [facility] Basophils/100 WBC (Bld) 0.4 % [facility] Differential cell count method Nom (Bld) Auto [facility] Eosinophils (Bld) [#/Vol] 0.08 10*3/uL <0.46 k/uL [facility] Eosinophils/100 WBC (Bld) 0.8 % [facility] Erythrocyte distribution width (RBC) [Ratio] 12.8 % 11.5 - 15.0 % [facility] Hematocrit (Bld) [Volume fraction] 40.9 % 36.0 - 46.0 % [facility] Hemoglobin (Bld) [Mass/Vol] 13.2 g/dL 11.5 - 15.5 g/dL [facility] Immature granulocytes (Bld) [#/Vol] <0.10 k/uL [facility] Immature granulocytes/100 WBC (Bld) 0.2 % [facility] Lymphocytes (Bld) [#/Vol] 3.73 10*3/uL 1.00 - 4.00 k/uL [facility] Lymphocytes/100 WBC (Bld) 36.7 % [facility] MCH (RBC) [Entitic mass] 30.8 pg 26.0 - 34.0 pg [facility] MCHC (RBC) [Mass/Vol] 32.3 g/dL 30.5 - 36.0 g/dL [facility] MCV (RBC) [Entitic vol] 95.6 fL 80.0 - 100.0 fL [facility] Monocytes (Bld) [#/Vol] 0.74 10*3/uL <0.87 k/uL [facility] Monocytes/100 WBC (Bld) 7.3 % [facility] Neutrophils (Bld) [#/Vol] 5.56 10*3/uL 1.45 - 7.50 k/uL [facility] Neutrophils/100 WBC (Bld) 54.6 % [facility] Nucleated RBC (Bld) [#/Vol] <0.01 k/uL [facility] Nucleated RBC/100 WBC (Bld) [Ratio] 0.0 /100 WBC [facility] Platelet mean volume (Bld) [Entitic vol] 10.2 fL 9.0 - 12.7 fL [facility] Platelets (Bld) [#/Vol] 370 10*3/uL 150 - 400 k/uL [facility] RBC (Bld) [#/Vol] 4.28 10*6/uL 3.90 - 5.2 0 m/uL [facility] WBC (Bld) [#/Vol] 10.17 10*3/uL 3.70 - 11 .00 k/uL [facility] CNPNon 06-08-2023 CNPN Telephone (FAMPWS) JEIMY HENRIQUEZ ([id number]) 1965 F Date Time Provider Department 06/08/23 NO PCP FAMPWS During your visit today, we recorded the following information about you: Natty Mcgregor LPN 06/08/2023 10:09 AM Signed ----- Message from Haydee Araiza MD sent at 06/08/2023 8:04 AM EDT ----- A1c in prediabetic range at 5.8. recommend low carb diet and regular exercise as discussed in office. Other labs normal. No new rx. Natty Mcgregor LPN 06/08/2023 10:10 AM Signed Phoned patient to advise of reults and recommendations. Patient didn't answer and VM full. Maggie Guerrero RN 06/09/2023 2:50 PM Signed Phoned pt and gave provider's message below with verbalized understanding. Pt agreeable. Allergies As of Date: 06/08/2023 Noted Allergy Reaction ADHESIVE TAPE (ROSINS) 01/05/2010 DARVOCET-N 100 (PROPOXYPHENE N-AC*10/05/2009 Comments: Tongue blisters LATEX 12/28/2009 9 - Itching ULTRAM (TRAMADOL HCL) 05/17/2016 14 - Other: See Comments Comments: costa over entire body WELLBUTRIN (BUPROPION HCL) 04/08/2019 5 - Intolerance Comments: Hallucinations Date Reviewed: 06/07/2023 Reviewed by: Maru Cedra MA - Fully Assessed Reason for Visit: Results [95] Prescriptions as of 06/09/2023 - albuterol HFA (PROVENTIL HFA, VENTOLIN HFA) 90 mcg/actuation inhaler Inhale 2 Puffs as instructed every 6 hours as needed. Problem List As Of Date 06/08/2023 Noted Resolved Depression [F32.A] Fibromyalgia [M79.7] 09/18/2015 Abnormal mammogram [R92.8] 05/17/2016 Encounter Status:Closed by Maggie GUERRERO RN on 06/09/23 Normal [facility] metabolic 2000 panelon 06-08-2023 Albumin [Mass/Vol] 4.1 g/dL 3.9 - 4.9 g/dL [facility] ALP [Catalytic activity/Vol] 96 U/L 34 - 123 U/L [facility] ALT [Catalytic activity/Vol] 29 U/L 7 - 38 U/L [facility] Anion gap [Moles/Vol] 9 mmol/L 9 - 18 mmol/L [facility] AST [Catalytic activity/Vol] 31 U/L 13 - 35 U/L [facility] Bilirubin [Mass/Vol] 0.6 mg/dL 0.2 - 1 .3 mg/dL [facility] Calcium [Mass/Vol] 9.5 mg/dL 8.5 - 10. 2 mg/dL [facility] Chloride [Moles/Vol] 101 mmol/L 97 - 10 5 mmol/L [facility] CO2 [Moles/Vol] 28 mmol/L 22 - 30 mmol/L [facility] Creatinine [Mass/Vol] 0.97 mg/dL High 0.58 - 0.96 mg/dL [facility] Estimated Glomerular Filtration Rate 69 mL/min/1.73m >=60 mL/min/1.73m [facility] Glucose [Mass/Vol] 73 mg/dL Low 74 - 99 mg/dL [facility] Potassium [Moles/Vol] 4.1 mmol/L 3.7 - 5.1 mmol/L [facility] Protein [Mass/Vol] 8.2 g/dL High 6.3 - 8.0 g/dL [facility] Sodium [Moles/Vol] 138 mmol/L 136 - 144 mmol/L [facility] Urea nitrogen [Mass/Vol] 13 mg/dL 7 - 21 mg/dL [facility] LIPID PANEL, NONFASTINGon Cholesterol [Mass/Vol] 161 mg/dL <200 mg/dL [facility] HDL Cholesterol, Nonfasting 53 mg/dL >39 mg/dL [facility] LDL Cholesterol, Nonfasting 92 mg/dL <100 mg/dL [facility] LDL/HDL Ratio, Nonfasting 1.74 mg/dL <2.54 mg/dL [facility] Non HDL Cholesterol, Nonfasting 108 mg/dL <130 mg/dL [facility] Total Chol/HDL Ratio, Nonfasting 3.04 mg/dL <5.10 mg/dL [facility] Triglycerides, Nonfasting 78 mg/dL <150 mg/dL [facility] VLDL Cholesterol, Nonfasting 16 mg/dL <30 mg/dL [facility] CBC W Auto Differential pane l (Bld)on 06-07-2023 Basophils (Bld) [#/Vol] 0.04 10*3/uL Normal <0.11 [facility] Comment on above: Order Comment: Speci men Type: BLOOD SPECIMEN Ordering Facility: [facility] Address: [address] [place] [address] Performed By: #### 5 7021-8 #### [facility] CLIA [id number] [address] [place] [address] [place] Basophils/100 WBC (Bld) 0.4 % Normal [facility] Comment on above: Order Comment: Speci men Type: BLOOD SPECIMEN Ordering Facility: [facility] Address: [address] [place] [address] Performed By: #### 5 7021-8 #### [facility] CLIA [id number] [address] [place] [address] [place] Differential cell count method Nom (Bld) Auto Normal [facility] Comment on above: Order Comment: Speci men Type: BLOOD SPECIMEN Ordering Facility: [facility] Address: [address] [place] [address] Performed By: #### 5 7021-8 #### [facility] CLIA [id number] [address] [place] [address] [place] Eosinophils (Bld) [#/Vol] 0.08 10*3/uL Normal <0.46 [facility] Comment on above: Order Comment: Speci men Type: BLOOD SPECIMEN Ordering Facility: [facility] Address: [address] Performed By: #### 5 7021-8 #### [facility] CLIA [id number] [address] [place] [address] [place] Eosinophils/100 WBC (Bld) 0.8 % Normal [facility] Comment on above: Order Comment: Speci men Type: BLOOD SPECIMEN Ordering Facility: [facility] Address: [address] [place], [place] [address] Performed By: #### 5 7021-8 #### [facility] CLIA [id number] [address] [place] [address] [place] Erythrocyte distribution width (RBC) [Ratio] 12.8 % Normal 11.5-15.0 [facility] Comment on above: Order Comment: Speci men Type: BLOOD SPECIMEN Ordering Facility: [facility] Address: [address] [place], [place] [address] Performed By: #### 5 7021-8 #### [facility] CLIA [id number] [address] [place] [address] [place] Hematocrit (Bld) [Volume fraction] 40.9 % Normal 36.0-46.0 [facility] Comment on above: Order Comment: Speci men Type: BLOOD SPECIMEN Ordering Facility: [facility] Address: [address] [place], [place] [address] Performed By: #### 5 7021-8 #### [facility] CLIA [id number] [address] [place] [address] [place] Hemoglobin (Bld) [Mass/Vol] 13.2 g/dL Normal 11.5-15.5 [facility] Comment on above: Order Comment: Speci men Type: BLOOD SPECIMEN Ordering Facility: [facility] Address: [address] [place] [id number] Performed By: #### 5 7021-8 #### [facility] CLIA [id number] [address] [place] [address] [place] Immature granulocytes (Bld) [#/Vol] 10*3/uL Normal <0.10 [facility] Comment on above: Order Comment: Speci men Type: BLOOD SPECIMEN Ordering Facility: [facility] Address: [address] [place] [address] Performed By: #### 5 7021-8 #### [facility] CLIA [id number] [address] [place] [address] [place] Immature granulocytes/100 WBC (Bld) 0.2 % Normal [facility] Comment on above: Order Comment: Speci men Type: BLOOD SPECIMEN Ordering Facility: [facility] Address: [address] [place] [address] Performed By: #### 5 7021-8 #### [facility] CLIA [id number] [address] [place] [address] [place] Lymphocytes (Bld) [#/Vol] 3.73 10*3/uL Normal 1.00-4.00 [facility] Comment on above: Order Comment: Speci men Type: BLOOD SPECIMEN Ordering Facility: [facility] Address: [address] [place] [address] Performed By: #### 5 7021-8 #### [facility] CLIA [id number] [address] [place] [address] [place] Lymphocytes/100 WBC (Bld) 36.7 % Normal [facility] Comment on above: Order Comment: Speci men Type: BLOOD SPECIMEN Ordering Facility: [facility] Address: [address] [place], [place] [address] Performed By: #### 5 7021-8 #### [facility] CLIA [id number] [address] [place] [address] [place] MCH (RBC) [Entitic mass] 30.8 pg Normal 26.0-34.0 [facility] Comment on above: Order Comment: Speci men Type: BLOOD SPECIMEN Ordering Facility: [facility] Address: [address] [place], [place] [address] Performed By: #### 5 7021-8 #### [facility] CLIA [id number] [address] [place] [address] [place] MCHC (RBC) [Mass/Vol] 32.3 g/dL Normal 30.5-36.0 [facility] Comment on above: Order Comment: Speci men Type: BLOOD SPECIMEN Ordering Facility: [facility] Address: [address] Performed By: #### 5 7021-8 #### [facility] CLIA [id number] [address] [place] [address] [place] MCV (RBC) [Entitic vol] 95.6 fL Normal 80.0-100.0 [facility] Comment on above: Order Comment: Speci men Type: BLOOD SPECIMEN Ordering Facility: [facility] Address: [address] Performed By: #### 5 7021-8 #### [facility] CLIA [id number] [address] [place] [address] [place] Monocytes (Bld) [#/Vol] 0.74 10*3/uL Normal <0.87 [facility] Comment on above: Order Comment: Speci men Type: BLOOD SPECIMEN Ordering Facility: [facility] Address: [address] Performed By: #### 5 7021-8 #### [facility] CLIA [id number] [address] [place] [address] [place] Monocytes/100 WBC (Bld) 7.3 % Normal [facility] Comment on above: Order Comment: Speci men Type: BLOOD SPECIMEN Ordering Facility: [facility] Address: [address] Performed By: #### 5 7021-8 #### [facility] CLIA [id number] [address] [place] [address] [place] Neutrophils (Bld) [#/Vol] 5.56 10*3/uL Normal 1.45-7.50 [facility] Comment on above: Order Comment: Speci men Type: BLOOD SPECIMEN Ordering Facility: [facility] Address: [address] Performed By: #### 5 7021-8 #### [facility] CLIA [id number] [address] [place] [address] [place] Neutrophils/100 WBC (Bld) 54.6 % Normal [facility] Comment on above: Order Comment: Speci men Type: BLOOD SPECIMEN Ordering Facility: [facility] Address: [address] [place], [place] [address] Performed By: #### 5 7021-8 #### [facility] CLIA [id number] [address] [place] [address] [place] Nucleated RBC (Bld) [#/Vol] 10*3/uL Normal <0.01 [facility] Comment on above: Order Comment: Speci men Type: BLOOD SPECIMEN Ordering Facility: [facility] Address: [address] [place], [place] [address] Performed By: #### 5 7021-8 #### [facility] CLIA [id number] [address] [place] [address] [place] Nucleated RBC/100 WBC (Bld) [Ratio] 0.0 /100 WBC Normal [facility] Comment on above: Order Comment: Speci men Type: BLOOD SPECIMEN Ordering Facility: [facility] Address: [address] [place], [place] [address] Performed By: #### 5 7021-8 #### [facility] CLIA [id number] [address] [place] [address] [place] Platelet mean volume (Bld) [Entitic vol] 10.2 fL Normal 9.0-12.7 [facility] Comment on above: Order Comment: Speci men Type: BLOOD SPECIMEN Ordering Facility: [facility] Address: [address] [place], [place] [address] Performed By: #### 5 7021-8 #### [facility] CLIA [id number] [address] [place] [address] [place] Platelets (Bld) [#/Vol] 370 10*3/uL Normal 150-400 [facility] Comment on above: Order Comment: Speci men Type: BLOOD SPECIMEN Ordering Facility: [facility] Address: [address] [place] [address] Performed By: #### 5 7021-8 #### [facility] CLIA [id number] [address] [place] [address] [place] RBC (Bld) [#/Vol] 4.28 10*6/uL Normal 3.90-5.20 [facility] Comment on above: Order Comment: Speci men Type: BLOOD SPECIMEN Ordering Facility: [facility] Address: [address] [place] [address] Performed By: #### 5 7021-8 #### [facility] CLIA [id number] [facility] [place] [address] [place] WBC (Bld) [#/Vol] 10.17 10*3/uL Normal 3.70-11.00 [facility] Comment on above: Order Comment: Speci men Type: BLOOD SPECIMEN Ordering Facility: [facility] Address: [address] [place] [address] Performed By: #### 5 7021-8 #### [facility] CLIA [id number] [address] [place] [address] [place] CNOVon 06-07-2023 CNOV Office Visit (FAMPWS ) JEIMY HENRIQUEZ ([id number]) 1965 F Date Time Provider Department 06/07/23 3:40 PM HAYDEE ARAIZA FAMPWS During your visit today, we recorded the following information about you: Pulse Respiration Blood pressure Weight 76/minute 16/minute 116/80 84.4 kg Height 1.524 m Haydee Araiza MD 06/07/2023 4:32 PM Signed Chief Complaint Patient presents with: Diabetes HPI Jeimy Henriquez is a 58 year old female who presents here today for Evaluation of possible diabetes. Last visit with our office more than 3 years ago. Patient states that she was diagnosed with diabetes back in 2000 and was on medication years ago, but her A1c that I can see from 2002 have been <5.7. States that after she had COVID in October and then again a month ago she has had a change in taste and has been eating sweets and foods higher in carbs. She has been checking sugars before each meal with average of 110-125, but has seen readings as high as 170. Admits to polydipsia, blurred vision in the last year since she got new glasses. Denies polyuria, polydipsia, numbness/tingling. Past medical history, appointments, medications, allergies reviewed. Previous Medical History PAST MEDICAL HISTORY Diagnosis Date Arthritis seen by rheumatology in the past. told inflammatory arthritis in all joints. Asthma Bipolar 1 disorder (HCC) 2019 Breast nodule 2016 left Depression Fibromyalgia Insomnia Migraines Obesity (BMI 30-39.9) PTSD (post-traumatic stress disorder) 2019 Uterine prolapse s/p hysterectomy Previous Surgical History PAST SURGICAL HISTORY Procedure Laterality Date BX BREAST W/DEVICE 1ST LESION ULTRASOUND GUID Left 05/17/16 U/S core bx UOQ left breast CHOLECYSTECTOMY Cholecystectomy COLONOSCOPY FLX DX W/COLLJ SPEC WHEN PFRMD 04/30/2019 Colonoscopy PAST SURGICAL HISTORY OF 2005 Cystocele, Rectocele, Mesh, hysterectomy PAST SURGICAL HISTORY OF 2006 Vaginal repair post-op PAST SURGICAL HISTORY OF 2009 vaginal reconstruction VAGINAL HYSTERECTOMY UTERUS 250 GM/< Hysterectomy, vaginal Family History FAMILY HISTORY Problem Relation Age of Onset Coronary Artery Disease Mother stent Asthma Mother Allergies Mother Coronary Artery Disease Brother stent Alcohol/Drug Brother Diabetes Father Heart Father CHF Hypertension Father Heart Maternal Grandfather MA Cancer Maternal Grandmother brain/ breast Patient Allergies ALLERGIES Allergen Reactions Adhesive Tape ([place]* Darvocet-N 100 [Pro* Tongue blisters Latex Itching Ultram [Tramadol Hc* Other: See Comments costa over entire body Wellbutrin [Bupropi* Intolerance Hallucinations Current Medications Current Outpatient Medications on File Prior to Visit Medication Sig albuterol HFA (PROVENTIL HFA, VENTOLIN HFA) 90 mcg/actuation inhaler Inhale 2 Puffs as instructed every 6 hours as needed. risperiDONE (RISPERDAL) 0.5 mg tablet Take 0.5 mg by mouth daily at bedtime. topiramate (TOPAMAX) 50 mg tablet Take 50 mg by mouth once daily. traZODone (DESYREL) 50 mg tablet Take 50 mg by mouth daily at bedtime. hydrOXYzine HCl (ATARAX) 25 mg tablet Take 1 tablet by mouth three times daily as needed. (Patient not taking: Reported on 05/13/2019 ) amitriptyline (ELAVIL) 10 mg tablet Take 1 tablet by mouth daily at bedtime. hydrOXYzine pamoate (VISTARIL) 25 mg capsule Take 25-50 mg every 8 hours as needed for anxiety meloxicam (MOBIC) 15 mg tablet Take 1 tablet by mouth once daily. Take with food. No current facility-administered medications on file prior to visit. Social History Social History Tobacco Use Smoking status: Former Packs/day: 1.00 Years: 8.00 Total pack years: 8.00 Types: Cigarettes Quit date: 03/07/2017 Years since quittin.2 Smokeless tobacco: Never Substance Use Topics Alcohol use: Yes Alcohol/week: 2.5 standard drinks of alcohol Types: 1 Cans of Beer (12oz) per week Comment: social Drug use: No Review of Symptoms REVIEW OF SYSTEMS See HPI EXAM: BP 116/80 Pulse 76 Resp 16 Ht 152.4 cm (5') Wt 84.4 kg (186 lb) BMI 36.33 kg/m? General Appearance: Well appearing, alert, in no acute distress, well-hydrated, well nourished.. Skin: Skin color, texture, turgor normal, no suspicious rashes or lesions. Lungs: Lungs clear to auscultation. No wheezing, rhonchi, rales.. Heart: RRR without murmur, gallop, or rubs. No ectopy. Abdomen: Normal abdominal exam, Abdomen soft, non-tender. Bowel sounds normal. No masses, organomegaly. Extremities: No deformities, edema, skin discoloration, clubbing or cyanosis. Good capillary refill. . Health Maintenance List HEPATITIS B(1 of 3 - 3-dose series) Never done SHINGRIX VACCINE(1 of 2) Never done DTAP,TDAP,TD(1 - Tdap) due on 03/08/2019 MAMMOGRAM due on 03/18/2020 DIABETES SCREEN due (more content not included)... Normal [facility] Comprehensive metabolic 2000 panelon 06-07-2023 Albumin [Mass/Vol] 4.1 g/dL Normal 3.9-4.9 [facility] Comment on above: Order Comment: Speci men Type: BLOOD SPECIMEN Ordering Facility: [facility] Address: [address] [address] Performed By: #### 2 4323-8, LIPNF #### [facility] CLIA [id number] [address] [place] [address] [place] ALP [Catalytic activity/Vol] 96 U/L Normal 34-123 [facility] Comment on above: Order Comment: Speci men Type: BLOOD SPECIMEN Ordering Facility: [facility] Address: [address] [address] Performed By: #### 2 4323-8, LIPNF #### [facility] CLIA [id number] [address] [place] [address] [place] ALT [Catalytic activity/Vol] 29 U/L Normal 7-38 [facility] Comment on above: Order Comment: Speci men Type: BLOOD SPECIMEN Ordering Facility: [facility] Address: [address] Performed By: #### 2 4323-8, LIPNF #### [facility] CLIA [id number] [address] [place] [address] [place] Anion gap [Moles/Vol] 9 mmol/L Normal 9-18 [facility] Comment on above: Order Comment: Speci men Type: BLOOD SPECIMEN Ordering Facility: [facility] Address: [address] Performed By: #### 2 4323-8, LIPNF #### [facility] CLIA [id number] [address] [place] [address] [place] AST [Catalytic activity/Vol] 31 U/L Normal 13-35 [facility] Comment on above: Order Comment: Speci men Type: BLOOD SPECIMEN Ordering Facility: [facility] Address: [address] [place] [address] Performed By: #### 2 4323-8, LIPNF #### [facility] CLIA [id number] [address] [place] [address] [place] Bilirubin [Mass/Vol] 0.6 mg/dL Normal 0.2-1.3 [facility] Comment on above: Order Comment: Speci men Type: BLOOD SPECIMEN Ordering Facility: [facility] Address: [address] [place] [address] Performed By: #### 2 4323-8, LIPNF #### [facility] CLIA [id number] [address] [place] [address] [place] Calcium [Mass/Vol] 9.5 mg/dL Normal 8.5-10.2 [facility] Comment on above: Order Comment: Speci men Type: BLOOD SPECIMEN Ordering Facility: [facility] Address: [address] [place], [place] [address] Performed By: #### 2 4323-8, LIPNF #### [facility] CLIA [id number] [address] [place] [address] [place] Chloride [Moles/Vol] 101 mmol/L Normal 97-105 [facility] Comment on above: Order Comment: Speci men Type: BLOOD SPECIMEN Ordering Facility: [facility] Address: [address] [place], [place] [address] Performed By: #### 2 4323-8, LIPNF #### [facility] CLIA [id number] [address] [place] [address] [place] CO2 [Moles/Vol] 28 mmol/L Normal 22-30 [facility] Comment on above: Order Comment: Speci men Type: BLOOD SPECIMEN Ordering Facility: [facility] Address: [address] [address] Performed By: #### 2 4323-8, LIPNF #### [facility] CLIA [id number] [address] [place] [address] [place] Creatinine [Mass/Vol] 0.97 mg/dL High 0.58-0.96 [facility] Comment on above: Order Comment: Jana men Type: BLOOD SPECIMEN Ordering Facility: [facility] Address: [address] [address] Performed By: #### 2 4323-8, LIPNF #### [facility] CLIA [id number] [address] [place] [address] [place] ESTIMATED GLOMERULAR FILTRATION RATE 69 mL/min/1.73m??? Normal >=60 [facility] Comment on above: Order Comment: Jana men Type: BLOOD SPECIMEN Ordering Facility: [facility] Address: [address] [place] [address] Result Comment: Bethany mated Glomerular Filtration Rate (eGFR) is calculated using the 2020 CKD-EPI creatinine equation. This equation utilizes serum creatinine, sex, and age as parameters. The creatinine assay has traceable calibration to isotope dilution-mass spectrometry. Refer to KDIGO guidelines for clinical interpretation. In patients with unstable renal function, e.g. those with acute kidney injury, the eGFR may not accurately reflect actual GFR. Performed By: #### 2 4323-8, LIPNF #### [facility] CLIA [id number] [address] [place] [address] [place] Glucose [Mass/Vol] 73 mg/dL Low 74-99 [facility] Comment on above: Order Comment: Jana dewey Type: BLOOD SPECIMEN Ordering Facility: [facility] Address: [address] [place] [address] Result Comment: The [place] Diabetes Association (ADA) provides guidance for cutoff values for fasting glucose and random glucose. The ADA defines fasting as no caloric intake for at least 8 hours. Fasting plasma glucose results between 100 to 125 mg/dL indicate increased risk for diabetes (prediabetes). Fasting plasma glucose results greater than or equal to 126 mg/dL meet the criteria for diagnosis of diabetes. In the absence of unequivocal hyperglycemia, results should be confirmed by repeat testing. In a patient with classic symptoms of hyperglycemia or hyperglycemic crisis, random plasma glucose results greater than or equal to 200 mg/dL meet the criteria for diagnosis of diabetes. Reference: Standards of Medical Care in Diabetes 2016, [place] Diabetes Association. Diabetes Care. 2016.39(Suppl 1). Performed By: #### 2 4323-8, LIPNF #### [facility] CLIA [id number] [address] [place] [address] [place] Potassium [Moles/Vol] 4.1 mmol/L Normal 3.7-5.1 [facility] Comment on above: Order Comment: Speci men Type: BLOOD SPECIMEN Ordering Facility: [facility] Address: [address] [address] Performed By: #### 2 4323-8, LIPNF #### [facility] CLIA [id number] [address] [place] [address] [place] Protein [Mass/Vol] 8.2 g/dL High 6.3-8.0 [facility] Comment on above: Order Comment: Speci men Type: BLOOD SPECIMEN Ordering Facility: [facility] Address: [address] [address] Performed By: #### 2 4323-8, LIPNF #### [facility] CLIA [id number] [address] [place] [address] [place] Sodium [Moles/Vol] 138 mmol/L Normal 136-144 [facility] Comment on above: Order Comment: Speci men Type: BLOOD SPECIMEN Ordering Facility: [facility] Address: [address] [address] Performed By: #### 2 4323-8, LIPNF #### [facility] CLIA [id number] [address] [place] [address] [place] Urea nitrogen [Mass/Vol] 13 mg/dL Normal 7-21 [facility] Comment on above: Order Comment: Jana dewey Type: BLOOD SPECIMEN Ordering Facility: [facility] Address: [address] [place] [address] Performed By: #### 2 4323-8, LIPNF #### [facility] CLIA [id number] [address] [place] [address] [place] HbA1c (Bld)on 06-07-2023 Average glucose Estimated from glycated hemoglobin (Bld) [Mass/Vol] 120 mg/dL Normal [facility] Comment on above: Order Comment: Jana dewey Type: BLOOD SPECIMEN Ordering Facility: [facility] Address: [address] [place] [address] Result Comment: eAG: (Estimated average glucose) is a calculated value from HgbA1c and is patient representative of the average blood glucose level in the last 2-3 month period. Performed By: #### 5 5454-3 #### [facility] CLIA [id number] [address] [place] [address] [place] HbA1c (Bld) [Mass fraction] 5.8 % High 4.3-5.6 [facility] Comment on above: Order Comment: Jana dewey Type: BLOOD SPECIMEN Ordering Facility: [facility] Address: [address] [place] [address] Result Comment: [place] Diabetes Association guidelines indicate that patients with HgbA1c in the range 5.7-6.4% are at increased risk for development of diabetes, and intervention by lifestyle modification may be beneficial. HgbA1c greater or equal to 6.5% is considered diagnostic of diabetes. Performed By: #### 5 5454-3 #### [facility] CLIA [id number] [address] [place] [address] [place] LIPID PANEL, NONFASTINGon Cholesterol [Mass/Vol] 161 mg/dL Normal <200 [facility] Comment on above: Order Comment: Speci men Type: BLOOD SPECIMEN Ordering Facility: [facility] Address: [address] [address] Result Comment: <200 mg/dL, Desirable 200-239 mg/dL, Borderline high >239 mg/dL, High Performed By: #### 2 4323-8, LIPNF #### [facility] CLIA [id number] [address] HDL CHOLESTEROL, NF 53 mg/dL Normal >39 [facility] Comment on above: Order Comment: Speci men Type: BLOOD SPECIMEN Ordering Facility: [facility] Address: [address] [place] [address] Result Comment: 40-5 9 mg/dL, Acceptable >59 mg/dL, High: Negative risk factor for coronary heart disease <40 mg/dL, Low: Positive risk factor for coronary heart disease Performed By: #### 2 4323-8, LIPNF #### [facility] CLIA [id number] [address] OF [facility] LDL CHOLESTEROL, NF 92 mg/dL Normal <100 [facility] Comment on above: Order Comment: Prasannai men Type: BLOOD SPECIMEN Ordering Facility: [facility] Address: [address] [place] [address] Result Comment: <100 mg/dL, Optimal 100-129 mg/dL, Near optimal/above optimal 130-159 mg/dL, Borderline high 160-189 mg/dL, High >189 mg/dL, Very high Secondary prevention optimal LDL Cholesterol levels are recommended to be < 70 mg/dL Performed By: #### 2 4323-8, LIPNF #### [facility] CLIA [id number] [address] OF [facility] LDL/HDL RATIO, NF 1.74 mg/dL Normal <2.54 [facility] Comment on above: Order Comment: Speci men Type: BLOOD SPECIMEN Ordering Facility: [facility] Address: [address] [place] [address] Result Comment: Refe rence: 1. National Cholesterol Education Program ATP III Guideline At-A-Glance Quick Desk Reference: National Heart, Lung, and Blood John Day. National Institutes of Health. 2001: NIH Publication No. 01-3305. 2. An International Atherosclerosis Society position paper: global recommendations for the management of dyslipidemia: executive summary, Atherosclerosis. 2014: 232(2):410-413. Performed By: #### 2 4323-8, LIPNF #### [facility] CLIA [id number] [address] [facility] [address] OF [facility] NON HDL CHOL, NF 108 mg/dL Normal <130 [facility] Comment on above: Order Comment: Jana dewey Type: BLOOD SPECIMEN Ordering Facility: [facility] Address: [address] [place] [address] Result Comment: <130 mg/dL, Optimal 130-159 mg/dL, Near optimal/above optimal 160-189 mg/dL, Borderline high 190-219 mg/dL, High >219 mg/dL, Very high Secondary prevention optimal non HDL Cholesterol levels are recommended to be <100 mg/dL Performed By: #### 2 4323-8, LIPNF #### [facility] CLIA [id number] [address] OF [facility] T CHOL/HDL RATIO NF 3.04 mg/dL Normal <5.10 [facility] Comment on above: Order Comment: Jana dewey Type: BLOOD SPECIMEN Ordering Facility: [facility] Address: [address] [place] [address] Performed By: #### 2 4323-8, LIPNF #### [facility] CLIA [id number] [address] [place] [address] [facility] [place] TRIGLYCERIDES, NF 78 mg/dL Normal <150 [facility] Comment on above: Order Comment: Jana dewey Type: BLOOD SPECIMEN Ordering Facility: [facility] Address: [address] [place] [address] Result Comment: <150 mg/dL, Normal 150-199 mg/dL, Borderline high 200-499 mg/dL, High >499 mg/dL, Very high Performed By: #### 2 4323-8, LIPNF #### [facility] CLIA [id number] [address] [place] [address] [place] VLDL CHOLESTEROL, NF 16 mg/dL Normal <30 [facility] Comment on above: Order Comment: Speci men Type: BLOOD SPECIMEN Ordering Facility: [facility] Address: [address] [place] [address] Performed By: #### 2 4323-8, LIPNF #### [facility] CLIA [id number] [address] [facility] [address] [place] No Panel Informationon 08-10 Please click on the link to view the study images Normal [facility] 205 DO Work Phone: Mamm - Screening Mammogram w / Tomosynthesison 08-04-2022 MG Breast Screening Normal -[facility] 205 DO Work Phone: JAY TITER/ESAU PANELon 2021 ANTI-CENTROMERE <0.2 Normal [facility] Comment on above: Result Comment: REF VALUES < 1.0 = NEGATIVE >=1.0 = POSITIVE Performed By: #### E NAP2 #### [facility] [address] [place] [address] ANTI-CHROMATIN <0.2 Normal [facility] Comment on above: Result Comment: REF VALUES < 1.0 = NEGATIVE >=1.0 = POSITIVE Performed By: #### E NAP2 #### [facility] [address] [place] [address] ANTI-DNA [DS] <1.0 Normal [facility] Comment on above: Result Comment: REF VALUES NEGATIVE: <= 4 IU/ML EQUIVOCAL: 5- 9 IU/ML POSITIVE: >=10 IU/ML Performed By: #### E NAP2 #### [facility] [address] [facility] [place] [address] ANTI-KASSY-1 <0.2 Normal [facility] Comment on above: Result Comment: REF VALUES < 1.0 = NEGATIVE >=1.0 = POSITIVE Performed By: #### E NAP2 #### [facility] [address] [place] [address] ANTI-RIBOSOMAL P <0.2 Normal [facility] Comment on above: Result Comment: REF VALUES < 1.0 = NEGATIVE >=1.0 = POSITIVE Performed By: #### E NAP2 #### [facility] [address] [place] [address] ANTI-OIL TRANSPORT DRIVER 0.2 AI Normal [facility] Comment on above: Result Comment: REF VALUES < 1.0 = NEGATIVE >=1.0 = POSITIVE Performed By: #### E NAP2 #### [facility] [address] [place] [address] ANTI-SCL-70 <0.2 Normal [facility] Comment on above: Result Comment: REF VALUES < 1.0 = NEGATIVE >=1.0 = POSITIVE Performed By: #### E NAP2 #### [facility] [address] [place] [address] ANTI-SM <0.2 Normal [facility] Comment on above: Result Comment: REF VALUES < 1.0 = NEGATIVE >=1.0 = POSITIVE Performed By: #### E NAP2 #### [facility] [address] [place] [address] ANTI-SM/OIL TRANSPORT DRIVER <0.2 Normal [facility] Comment on above: Result Comment: REF VALUES < 1.0 = NEGATIVE >=1.0 = POSITIVE Performed By: #### E NAP2 #### [facility] [address] [place] [address] ANTI-SSA <0.2 Normal [facility] Comment on above: Result Comment: REF VALUES < 1.0 = NEGATIVE >=1.0 = POSITIVE Performed By: #### E NAP2 #### [facility] [address] [place] [address] ANTI-SSB <0.2 Normal [facility] Comment on above: Result Comment: REF VALUES < 1.0 = NEGATIVE >=1.0 = POSITIVE Performed By: #### E NAP2 #### [facility] [address] [place] [address] JAY PATTERN NUCLEOLAR Normal [facility] Comment on above: Performed By: #### E NAP2 #### [facility] [address] [place] [address] JAY TITER 1:40 Normal [facility] Comment on above: Performed By: #### E NAP2 #### [facility] [address] [place] [address] JAY-WITH REFLEX TO ENAon JAY WITH REFLEX TO ESAU Positive Abnormal NEGATIVE [facility] Comment on above: Result Comment: The Antinuclear Antibody (JAY) test was performed using indirect immunofluorescence assay with HEp-2 cells slide. Performed By: #### A NA2 #### [facility] [address] [place] [address] GC + CHLAMYDIA BY AMPLIFIED DETECTIONon 07-22-2022 CHLAMYDIA TRACH.,AMPLIFIED Negative Normal Negative [facility] Comment on above: Result Comment: The APTIMA Combo 2 assay is FDA-approved for Chlamydia trachomatis and Neisseria gonorrhoeae testing on female endocervical and vaginal swabs, ThinPrep liquid pap samples, male urine samples and urethral swabs. Performance characteristics for Chlamydia trachomatis and Neisseria gonorrhoeae testing on specific gxy-BMD-jjfaprkb sample types (female urine samples) have been validated by [facility]. This laboratory is certified by CLIA to perform high complexity testing. Samples from all other sites are not validated for this method. Performed By: #### G CCHA #### [facility] [address] [place] [address] N.GONORRHEA,AMPLIFIED Negative Normal Negative [facility] Comment on above: Result Comment: The APTIMA Combo 2 assay is FDA-approved for Chlamydia trachomatis and Neisseria gonorrhoeae testing on female endocervical and vaginal swabs, ThinPrep liquid pap samples, male urine samples and urethral swabs. Performance characteristics for Chlamydia trachomatis and Neisseria gonorrhoeae testing on specific jvw-TZQ-vcwtavau sample types (female urine samples) have been validated by [facility]. This laboratory is certified by CLIA to perform high complexity testing. Samples from all other sites are not validated for this method. Performed By: #### [facility] #### [facility] [address] [place] [address] C Reactive Protein, Serumon 07-21-2022 CRP [Mass/Vol] 1.60 mg/dL Abnormal [facility] 205 DO Work Phone: Comment on above: REF VALUE< 1.00 C-REACTIVE PROTEINon 022 C-REACTIVE PROTEIN 1.60 mg/dL Abnormal [facility] Comment on above: Result Comment: REF VALUE < 1.00 Performed By: #### C RP #### [address] [address] CBC AND DIFFERENTIALon 07-21 Basophils (Bld) [#/Vol] 0.00 10*3/uL Normal 0.00 - 0.10 [facility] Comment on above: Performed By: #### C BCDF #### [address] [address] Basophils/100 WBC (Bld) 0.4 % Normal 0.0 - 2.0 [facility] Comment on above: Performed By: #### C BCDF #### [address] [address] Eosinophils (Bld) [#/Vol] 0.10 10*3/uL Normal 0.00 - 0.70 [facility] Comment on above: Performed By: #### C BCDF #### [address] [address] Eosinophils/100 WBC (Bld) 0.7 % Normal 0.0 - 6.0 [facility] Comment on above: Performed By: #### C BCDF #### [address] [address] Erythrocyte distribution width (RBC) [Ratio] 13.4 % Normal 11.5 - 14.5 [facility] Comment on above: Performed By: #### C BCDF #### [address] [address] Hematocrit (Bld) [Volume fraction] 42.0 % Normal 36.0 - 46.0 [facility] Comment on above: Performed By: #### C BCDF #### [address] [address] Hemoglobin (Bld) [Mass/Vol] 13.7 g/dL Normal 12.0 - 16.0 [facility] Comment on above: Performed By: #### C BCDF #### [address] [address] Lymphocytes (Bld) [#/Vol] 2.80 10*3/uL Normal 1.20 - 4.80 [facility] Comment on above: Performed By: #### C BCDF #### [address] [address] Lymphocytes/100 WBC (Bld) 36.0 % Normal 13.0 - 44.0 [facility] Comment on above: Performed By: #### C BCDF #### [address] [address] MCHC (RBC) [Mass/Vol] 32.7 g/dL Normal 32.0 - 36.0 [facility] Comment on above: Performed By: #### C BCDF #### [address] [address] MCV (RBC) [Entitic vol] 92 fL Normal 80 - 100 [facility] Comment on above: Performed By: #### C BCDF #### [address] [address] Monocytes (Bld) [#/Vol] 0.40 10*3/uL Normal 0.10 - 1.00 [facility] Comment on above: Performed By: #### C BCDF #### [address] [address] Monocytes/100 WBC (Bld) 5.7 % Normal 2.0 - 10.0 [facility] Comment on above: Performed By: #### C BCDF #### [address] [address] Neutrophils (Bld) [#/Vol] 4.50 10*3/uL Normal 1.20 - 7.70 [facility] Comment on above: Result Comment: Perc ent differential counts (%) should be interpreted in the context of the absolute cell counts (cells/L). Performed By: #### C BCDF #### [address] [address] Neutrophils/100 WBC (Bld) 57.2 % Normal 40.0 - 80.0 [facility] Comment on above: Performed By: #### C BCDF #### [address] [address] Platelets (Bld) [#/Vol] 393 10*3/uL Normal 150 - 450 [facility] Comment on above: Performed By: #### C BCDF #### [address] [address] RBC 4.56 x10E12/L Normal 4.00 - 5.20 [facility] Comment on above: Performed By: #### C BCDF #### [address] [address] WBC (Bld) [#/Vol] 7.9 10*3/uL Normal 4.4 - 11.3 [facility] Comment on above: Performed By: #### C BCDF #### [address] [address] Complete Blood Count + Diffe rentialon 07-21-2022 Basophils/100 WBC (Bld) 0.4 % 0.0 - 2.0 [facility] 205 DO Work Phone: Erythrocyte distribution width (RBC) [Ratio] 13.4 % See Below [facility] 205 DO Work Phone: Comment on above: Reference Range: 11. 5 - 14.5 Hematocrit (Bld) [Volume fraction] 42.0 % See Below [facility] 205 DO Work Phone: Comment on above: Reference Range: 36. 0 - 46.0 Hemoglobin (Bld) [Mass/Vol] 13.7 g/dL See Below [facility] 205 DO Work Phone: Comment on above: Reference Range: 12. 0 - 16.0 Lymphocytes/100 WBC (Bld) 36.0 % See Below [facility] 205 DO Work Phone: Comment on above: Reference Range: 13. 0 - 44.0 MCHC (RBC) [Mass/Vol] 32.7 g/dL See Below [facility] 205 DO Work Phone: Comment on above: Reference Range: 32. 0 - 36.0 MCV (RBC) [Entitic vol] 92 fL 80 - 100 [facility] 205 DO Work Phone: Monocytes/100 WBC (Bld) 5.7 % 2.0 - 10.0 [facility] 205 DO Work Phone: Neutrophils/100 WBC (Bld) 57.2 % See Below [facility] 205 DO Work Phone: Comment on above: Reference Range: 40. 0 - 80.0 Platelets (Bld) [#/Vol] 393 10*3/uL 150 - 450 [facility] 205 DO Work Phone: RBC (Bld) [#/Vol] 4.56 {x10E12/L} See Below [facility] 205 DO Work Phone: Comment on above: Reference Range: 4.0 0 - 5.20 WBC (Bld) [#/Vol] 7.9 10*3/uL 4.4 - 11.3 [facility] 205 DO Work Phone: Complete Blood Count + Differential 0.00 {x10E9/L} See Below [facility] 205 DO Work Phone: Comment on above: Reference Range: 0.0 0 - 0.10 Complete Blood Count + Differential 0.10 {x10E9/L} See Below [facility] 205 DO Work Phone: Comment on above: Reference Range: 0.0 0 - 0.70 Complete Blood Count + Differential 0.40 {x10E9/L} See Below [facility] 205 DO Work Phone: Comment on above: Reference Range: 0.1 0 - 1.00 Complete Blood Count + Differential 2.80 {x10E9/L} See Below [facility] 205 DO Work Phone: Comment on above: Reference Range: 1.2 0 - 4.80 Complete Blood Count + Differential 4.50 {x10E9/L} See Below [place] [address] DO Work Phone: Comment on above: Reference Range: 1.2 0 - 7.70 Percent differential counts (%) should be interpreted in the context of the absolute cell counts (cells/L). Complete Blood Count + Differential 0.7 % 0.0 - 6.0 [facility] 205 DO Work Phone: GC + CHLAMYDIA BY AMPLIFIED DETECTIONon 07-21-2022 Lab Specimen Source Urine Normal [facility] Comment on above: Performed By: #### G [facility] #### [facility] [address] [address] [place] [address] GC + Chlamydia By Amplified Detectionon 07-21-2022 C. trachomatis rRNA LAURIE+probe Ql (Unsp spec) Negative Negative [place] [address] DO Work Phone: Comment on above: The APTIMA Combo 2 a ssay is FDA-approved for Chlamydia trachomatis and Neisseria gonorrhoeae testing on female endocervical and vaginal swabs, ThinPrep liquid pap samples, male urine samples and urethral swabs. Performance characteristics for Chlamydia trachomatis and Neisseria gonorrhoeae testing on specific qif-WEN-ccjurbtz sample types (female urine samples) have been validated by [facility]. This laboratory is certified by CLIA to perform high complexity testing. Samples from all other sites are not validated for this method. N. gonorrhoeae rRNA LAURIE+probe Ql (Unsp spec) Negative Negative [facility] 205 DO Work Phone: Comment on above: SOURCE: Urine The AP MARIO Combo 2 assay is FDA-approved for Chlamydia trachomatis and Neisseria gonorrhoeae testing on female endocervical and vaginal swabs, ThinPrep liquid pap samples, male urine samples and urethral swabs. Performance characteristics for Chlamydia trachomatis and Neisseria gonorrhoeae testing on specific ufh-HYY-wwayypfn sample types (female urine samples) have been validated by [facility]. This laboratory is certified by CLIA to perform high complexity testing. Samples from all other sites are not validated for this method. HEMOGLOBIN A1Con 07-21-2022 Glucose [Mass/Vol] 123 mg/dL Normal [facility] Comment on above: Performed By: #### H BA1E #### [address] [address] HbA1c (Bld) [Mass fraction] 5.9 % Abnormal [facility] Comment on above: Result Comment: Diag nosis of Diabetes-Adults Non-Diabetic: < or = 5.6% Increased risk for developing diabetes: 5.7-6.4% Diagnostic of diabetes: > or = 6.5% . Monitoring of Diabetes Age (y) Therapeutic Goal (%) Adults: >18 <7.0 Pediatrics: 13-18 <7.5 7-12 <8.0 0- 6 7.5-8.5 [place] [employer]. Diabetes Care 33(S1), Nov 2009. Performed By: #### H BA1E #### [address] [address] Hemoglobin A1Con 07-21-2022 Glucose [Mass/Vol] 123 mg/dL [facility] 205 DO Work Phone: HbA1c (Bld) [Mass fraction] 5.9 % Abnormal [facility] 205 DO Work Phone: Comment on above: Diagnosis of Diabete s-Adults Non-Diabetic: < or = 5.6% Increased risk for developing diabetes: 5.7-6.4% Diagnostic of diabetes: > or = 6.5%. Monitoring of Diabetes Age (y) Therapeutic Goal (%) Adults: >18 <7.0 Pediatrics: 13-18 <7.5 7-12 <8.0 0- 6 7.5-8.5 [place] [employer]. Diabetes Care 33(S1), Nov 2009. LIPID PANEL (CORONARY RISK 2 )on 07-21-2022 Cholesterol [Mass/Vol] 195 mg/dL Normal 0 - 199 [facility] Comment on above: Result Comment: . AGE DESIRABLE BORDERLINE HIGH HIGH 0-19 Y 0 - 169 170 - 199 >/= 200 20-24 Y 0 - 189 190 - 224 >/= 225 >24 Y 0 - 199 200 - 239 >/= 240 All ranges are based on fasting samples. Specific therapeutic targets will vary based on patient-specific cardiac risk. . Pediatric guidelines reference:Pediatrics 2011, 128(S5). Adult guidelines reference: NCEP ATPIII Guidelines, DALTON 2001, 258:2486-97 . Venipuncture immediately after or during the administration of Metamizole may lead to falsely low results. Testing should be performed immediately prior to Metamizole dosing. Performed By: #### L IPID #### [address] [address] Cholesterol in HDL [Mass/Vol] 51.0 mg/dL Normal [facility] Comment on above: Result Comment: . AGE VERY LOW LOW NORMAL HIGH 0-19 Y < 35 < 40 40-45 ---- 20-24 Y ---- < 40 >45 ---- >24 Y ---- < 40 40-60 >60 . Performed By: #### L IPID #### [address] [address] Cholesterol in LDL [Mass/Vol] 127 mg/dL High 0 - 99 [facility] Comment on above: Result Comment: . NEAR BORD AGE DESIRABLE OPTIMAL HIGH HIGH VERY HIGH 0-19 Y 0 - 109 --- 110-129 >/= 130 ---- 20-24 Y 0 - 119 --- 120-159 >/= 160 ---- >24 Y 0 - 99 100-129 130-159 160-189 >/=190 . Performed By: #### L IPID #### [address] [address] Cholesterol in VLDL [Mass/Vol] 17 mg/dL Normal 0 - 40 [facility] Comment on above: Performed By: #### L IPID #### [address] [address] Cholesterol.total/Cho lesterol in HDL [Mass ratio] 3.8 {ratio} Normal [facility] Comment on above: Result Comment: REF VALUES DESIRABLE < 3.4 HIGH RISK > 5.0 Performed By: #### L IPID #### [address] [address] Triglyceride [Mass/Vol] 84 mg/dL Normal 0 - 149 [facility] Comment on above: Result Comment: . AGE DESIRABLE BORDERLINE HIGH HIGH VERY HIGH 0 D-90 D 19 - 174 ---- ---- ---- 91 D- 9 Y 0 - 74 75 - 99 >/= 100 ---- 10-19 Y 0 - 89 90 - 129 >/= 130 ---- 20-24 Y 0 - 114 115 - 149 >/= 150 ---- >24 Y 0 - 149 150 - 199 200- 499 >/= 500 . Venipuncture immediately after or during the administration of Metamizole may lead to falsely low results. Testing should be performed immediately prior to Metamizole dosing. Performed By: #### L IPID #### [address] [address] Laboratory - Serology - non- microon 07-21-2022 Centromere protein B Ab Qn (S) <0.2 [facility] 205 DO Work Phone: Comment on above: REF VALUES < 1.0 = N EGATIVE >=1.0 = POSITIVE Chromatin Ab Qn <0.2 [facility] 205 DO Work Phone: Comment on above: REF VALUES < 1.0 = N EGATIVE >=1.0 = POSITIVE DNA double strand Ab Qn (S) [IU]/mL [place] [address] DO Work Phone: Comment on above: REF VALUESNEGATIVE: <= 4 IU/MLEQUIVOCAL: 5- 9 IU/MLPOSITIVE: >=10 IU/ML Kassy-1 extractable nuclear Ab IA Ql (S) <0.2 [place] [address] DO Work Phone: Comment on above: REF VALUES < 1.0 = N EGATIVE >=1.0 = POSITIVE Nuclear Ab Hep2 substrate Ql (S) Positive Abnormal NEGATIVE [place] [address] DO Work Phone: Comment on above: The Antinuclear Anti body (JAY) test was performed using indirect immunofluorescence assay with HEp-2 cells slide. Nuclear Ab IF (S) [Titer] 1:40 [place] [address] DO Work Phone: Nuclear Ab pattern (S) [Interp] NUCLEOLAR [place] [address] DO Work Phone: Ribonucleoprotein extractable nuclear Ab IA Qn (S) 0.2 {AI} [place] [address] DO Work Phone: Comment on above: REF VALUES < 1.0 = N EGATIVE >=1.0 = POSITIVE Ribosomal P Ab Qn (S) <0.2 [place] [address] DO Work Phone: Comment on above: REF VALUES < 1.0 = N EGATIVE >=1.0 = POSITIVE SCL-70 extractable nuclear Ab IA Ql (S) <0.2 [place] [address] DO Work Phone: Comment on above: REF VALUES < 1.0 = N EGATIVE >=1.0 = POSITIVE Sjogrens syndrome-A extractable nuclear Ab IA Qn (S) <0.2 [place] [address] DO Work Phone: Comment on above: REF VALUES < 1.0 = N EGATIVE >=1.0 = POSITIVE Sjogrens syndrome-B extractable nuclear Ab IA Qn (S) <0.2 [facility] DO Work Phone: Comment on above: REF VALUES < 1.0 = N EGATIVE >=1.0 = POSITIVE [place] extractable nuclear Ab IA Qn (S) <0.2 [place] [address] DO Work Phone: Comment on above: REF VALUES < 1.0 = N EGATIVE >=1.0 = POSITIVE [place] extractable nuclear Ab+Ribonucleoprotein extractable nuclear Ab IA Ql (S) <0.2 [place] [address] DO Work Phone: Comment on above: REF VALUES < 1.0 = N EGATIVE >=1.0 = POSITIVE Lipid Panelon 07-21-2022 Cholesterol [Mass/Vol] 195 mg/dL 0 - 199 [place] [address] DO Work Phone: Comment on above: . AGE DESIRABLE BORD JANNA HIGH HIGH 0-19 Y 0 - 169 170 - 199 >/= 200 20-24 Y 0 - 189 190 - 224 >/= 225 >24 Y 0 - 199 200 - 239 >/= 240 All ranges are based on fasting samples. Specific therapeutic targets will vary based on patient-specific cardiac risk.. Pediatric guidelines reference:Pediatrics 2011, 128(S5). Adult guidelines reference: NCEP ATPIII Guidelines, DALTON 2001, 258:2486-97. Venipuncture immediately after or during the administration of Metamizole may lead to falsely low results. Testing should be performed immediately prior to Metamizole dosing. Cholesterol in HDL [Mass/Vol] 51.0 mg/dL [place] [address] DO Work Phone: Comment on above: . AGE VERY LOW LOW N ORMAL HIGH 0-19 Y < 35 < 40 40-45 ---- 20- 24 Y ---- < 40 >45 ---- >24 Y ---- < 40 40-60 >60. Cholesterol in LDL [Mass/Vol] 127 mg/dL above high threshold 0 - 99 [facility] DO Work Phone: Comment on above: . NEAR BORD AGE ULISSES RABLE OPTIMAL HIGH HIGH VERY HIGH 0-19 Y 0 - 109 --- 110-129 >/= 130 ---- 20-24 Y 0 - 119 --- 120-159 >/= 160 ---- >24 Y 0 - 99 100-129 130-159 160-189 >/=190. Cholesterol.total/Cho lesterol in HDL [Mass ratio] 3.8 {ratio} [place] [address] DO Work Phone: Comment on above: REF VALUESDESIRABLE < 3.4HIGH RISK > 5.0 Triglyceride [Mass/Vol] 84 mg/dL 0 - 149 [place] [address] DO Work Phone: Comment on above: . AGE DESIRABLE BORD JANNA HIGH HIGH VERY HIGH 0 D-90 D 19 - 174 ---- ---- ----91 D- 9 Y 0 - 74 75 - 99 >/= 100 ---- 10-19 Y 0 - 89 90 - 129 >/= 130 ---- 20-24 Y 0 - 114 115 - 149 >/= 150 ---- >24 Y 0 - 149 150 - 199 200- 499 >/= 500. Venipuncture immediately after or during the administration of Metamizole may lead to falsely low results. Testing should be performed immediately prior to Metamizole dosing. Lipid Panel 17 mg/dL 0 - 40 [place] [address] DO Work Phone: RHEUMATOID FACTORon 07-21-20 22 RHEUMATOID FACTOR <10 Normal 0 - 15 [facility] Comment on above: Performed By: #### R F #### [facility] [address] [place] [address] Rheumatoid Factor, Serum or Plasmaon 07-21-2022 Rheumatoid factor Nephelometry Qn (S) <10 0 - 15 [facility] 205 DO Work Phone: SEDIMENTATION RATE, ERYTHROC YTEon 07-21-2022 SEDIMENTATION RATE, ERYTHROCYTE 69 mm/h High 0 - 30 [facility] Comment on above: Performed By: #### E SRWS #### [facility] [address] [place] [address] Sedimentation Rate, Erythroc yteon 07-21-2022 ESR (Bld) [Velocity] 69 mm/h above high threshold 0 - 30 [facility] 205 DO Work Phone: Cult, Urineon 07-20-2022 Bacteria identified Cx Nom (U) [facility] 205 DO Work Phone: IO UA (automated w/o microsc opy)on 07-20-2022 Protein (U) [Mass/Vol] Negative [facility] and Work Phone: IO UA (automated w/o microscopy) Trace [facility] and Work Phone: IO UA (automated w/o microscopy) Negative [facility] and Work Phone: IO UA (automated w/o microscopy) Normal (0.2-1.0 mg/dl) [facility] and Work Phone: IO UA (automated w/o microscopy) 6.0 1 [facility] and Work Phone: IO UA (automated w/o microscopy) Hemolyzed trace Abnormal [facility] and Work Phone: IO UA (automated w/o microscopy) 1.025 1 [facility] and Work Phone: IO UA (automated w/o microscopy) Clear [facility] and Work Phone: IO UA (automated w/o microscopy) Yellow [facility] and Work Phone: Office Visit (Primary Care T xt/Forms)on 07-20-2022 Follow-up visit Diagnoses/Problems Assessed Dysuria (788.1) (R30.0) Hepatic steatosis (571.8) (K76.0) Diverticulosis of colon (562.10) (K57.30) BMI 36.0-36.9,adult (V85.36) (Z68.36) Class 2 severe obesity due to excess calories with serious comorbidity and body mass index (BMI) of 36.0 to 36.9 in adult (278.01,V85.36) (E66.01,Z68.36) Frequent UTI (599.0) (N39.0) Yeast infection (112.9) (B37.9) Urinary tract infection (599.0) (N39.0) Screening for lipid disorders (V77.91) (Z13.220) Elevated glucose (790.29) (R73.09) Joint pain (719.40) (M25.50) Anxiety (300.00) (F41.9) Depression (311) (F32.A) Encounter for screening mammogram for breast cancer (V76.12) (Z12.31) Encounter to establish care (V65.8) (Z76.89) *Orders Anxiety, Depression Adult Psychiatry Referral Evaluation and Treatment Evaluate AND Treat Status: Complete - PT GIVEN [id number] INFO TO SCHEDULE OWN APPT Done: [id number] Class 2 severe obesity due to excess calories with serious comorbidity and body mass index (BMI) of 36.0 to 36.9 in adult HEART HEALTHY DIET - SINCERE; Status:Active; Requested for:[id number]; Dysuria GC + Chlamydia By Amplified Detection; Status:Complete; Done: [id number] 11:30AM IO UA (automated w/o microscopy); Status:Complete; Done: [id number] 03:57PM Elevated glucose Hemoglobin A1C; Status:Complete; Done: [id number] 11:02AM Encounter for screening mammogram for breast cancer Mamm - Screening Mammogram w/ Tomosynthesis; Status:Active; Requested for:[id number]; Radiologist to Determine Optimal Study : Y What are the patient's signs and symptoms ? : Annual Screening Mammogram Frequent UTI Cult, Urine; Status:Complete; Done: 20Jul2022 04:08PM Hepatic steatosis Complete Blood Count + Differential; Status:Complete; Done: [id number] 11:02AM Joint pain JAY-WITH REFLEX TO ESAU; Status:Complete; Done: 55Khl7862 11:02AM C Reactive Protein, Serum; Status:Complete; Done: 21Jul2022 11:02AM Rheumatoid Factor, Serum or Plasma; Status:Complete; Done: 21Jul2022 11:02AM Sedimentation Rate, Erythrocyte; Status:Complete; Done: 21Jul2022 11:02AM Screening for lipid disorders Comprehensive Metabolic Panel; Status:Canceled - just had in ER and was normal; Lipid Panel; Status:Complete; Done: 21Jul2022 11:02AM Urinary tract infection Start: Ciprofloxacin HCl - 500 MG Oral Tablet; TAKE 1 TABLET EVERY 12 HOURS DAILY Yeast infection Start: Fluconazole 150 MG Oral Tablet; TAKE 1 TABLET and then take 1 tablet in 2 days. May repeat 3rd dose IN 2 DAYS. Joint pain (719.40) (M25.50) Patient Discussion/Summary follow up based on labs, otherwise in 1 year for wellness exam. UTI: Urine dip showed Blood trace, Trace leukocytes- will treat with Cipro for 7 days. fibromyalgia: Will test for inflammation markers, and RH factors. Will refer to Rheumatology if positive. Elevated glucose/history of diabetes: Will recheck HbA1c as her last ones per patient have been back in the normal range and is currently not on medication. Anxiety/bipolar depression: will refer to Psychiatry/counseling. Breast cancer screen: will order mammogram. Chief Complaint Pt is here today to get est with PCP, Was recently in the ER with UTI, feels like she may still have it. History of Present Illness 57 year old female here to establish care. She was seen in ER on 07/06 for UTI complaints. We reviewed CT abdomen/pelvis UTI: Was given Rocephin and Cephalexin from ER. Still having symptoms. DM: HbA1c was around 5 last drawn. Has had an elevated AHA in the past, joint pain. anxiety: Has increased. Has been told she has bipolar depression. She reports she is going through a divorce and found out her has cheated on her. She would like STI testing since she is still having urinary complaints after ATB. Fibromyalgia: Has tried Cymbalta in the past, but made her Bipolar worse. Believes she was tested for rheumatoid disorders a long time ago, but were negative. She would like to be tested again. Health maintenance: Mammogram: last one 2018, [facility] Pap:has had a hysterectomy Colonoscopy Done in 04/30/2019 [facility] Labs: Needs updated Social Hx: Tobacco: occasional ETOH: 2-3/week Drugs: denies Caffeine: 2 cups/day Review of Systems Constitutional: not feeling tired. Cardiovascular: no chest pain, no palpitations, no shortness of breath and no chest pressure. Respiratory: no dyspnea with exertion and no dyspnea at rest. Gastrointestinal: abdominal pain, but no constipation, no diarrhea, no heartburn, no nausea, no bloating and no vomiting. Genitourinary: decreased urine frequency, dysuria, pelvic pain, but no incontinence, no urinary urgency, no vaginal discharge, no blood in urine. Musculoskeletal: arthralgias, myalgias and joint stiffness, but no joint swelling and no joint redness. Neurological: no headache and no dizziness. Active Problems Problems Dysuria (788.1) (R30.0) Surgical History Problems History of Gabrielle (more content not included)... Normal [facility] Tobacco Screening.on 022 Tobacco use status CPHS b) No [facility] and Work Phone: URINE CULTURE,BACTERIALon URINE CULTURE,BACTERIAL PATIENT: JEIMY HENRIQUEZ LOCATION: [facility] BILL#: [id number] : 69 AGE: SEX: F ORDERED BY: TAMIKA BROWN SOURCE: URINE COLLECTED: 07/20/22 16:08 ANTIBIOTICS AT STAN.: RECEIVED : 07/21/22 18:32 SITE: Clean Catch/Voided R E S U L T S URINE CULTURE,BACTERIAL FINAL 07/22/22 11:13 NO SIGNIFICANT GROWTH. Normal [facility] Comment on above: Performed By: #### U [facility] #### [facility] [address] [place] [address] Clinical Event Note-ED Post Discharge Result Follow Up: Compon 07-11-2022 Clinical Event Note-ED Post Discharge Result Follow Up: Comp Clinical Event: Clinical Event Note: TopicED Post Discharge Result Follow Up: Complete; Type: urine culture, positive Details Pharmacist Name: Rupal Portillo Date: 07/11/22 Time: 1410 Patient's urine culture returned positive for E. coli. ED provider instructed patient to take full course of antibiotics and to f/u with PCP if symptoms worsen. Patient educated on the worsening signs and symptoms of UTI including an increase in flank pain or suprapubic pain, chills, fever, urgency, burning, frequency, foul smelling urine, blood in urine, and any abnormal discharge. Made aware to seek medical attention if experiencing any new or worsening symptoms and to follow up with PCP. Pt verbalizes understanding and has no other questions or concerns. Patient verbalized understanding and had no further questions or concerns. If there are any other questions for the ED Post-Discharge Culture Follow Up Team, please contact [phone]. Rupal Portillo, PharmD PGY-1 Resident [facility] Electronic Signatures: Rupal Portillo ([facility]) (Signed 11-Jul-2022 14:11) Authored: Clinical Event Note Last Updated: 11-Jul-2022 14:11 by Rupal Portillo ([facility]) Normal [facility] CBC AND DIFFERENTIALon 07-06 Basophils (Bld) [#/Vol] 0.10 10*3/uL Normal 0.00 - 0.10 [facility] Comment on above: Performed By: #### C BCDF #### [address] [address] Basophils/100 WBC (Bld) 0.7 % Normal 0.0 - 2.0 [facility] Comment on above: Performed By: #### C BCDF #### [address] [address] Eosinophils (Bld) [#/Vol] 0.00 10*3/uL Normal 0.00 - 0.70 [facility] Comment on above: Performed By: #### C BCDF #### [address] [address] Eosinophils/100 WBC (Bld) 0.1 % Normal 0.0 - 6.0 [facility] Comment on above: Performed By: #### C BCDF #### [address] [address] Erythrocyte distribution width (RBC) [Ratio] 13.2 % Normal 11.5 - 14.5 [facility] Comment on above: Performed By: #### C BCDF #### [address] [address] Hematocrit (Bld) [Volume fraction] 40.3 % Normal 36.0 - 46.0 [facility] Comment on above: Performed By: #### C BCDF #### [address] [address] Hemoglobin (Bld) [Mass/Vol] 13.4 g/dL Normal 12.0 - 16.0 [facility] Comment on above: Performed By: #### C BCDF #### [address] [address] Lymphocytes (Bld) [#/Vol] 3.10 10*3/uL Normal 1.20 - 4.80 [facility] Comment on above: Performed By: #### C BCDF #### [address] [address] Lymphocytes/100 WBC (Bld) 24.2 % Normal 13.0 - 44.0 [facility] Comment on above: Performed By: #### C BCDF #### [address] [address] MCHC (RBC) [Mass/Vol] 33.2 g/dL Normal 32.0 - 36.0 [facility] Comment on above: Performed By: #### C BCDF #### [address] [address] MCV (RBC) [Entitic vol] 91 fL Normal 80 - 100 [facility] Comment on above: Performed By: #### C BCDF #### [address] [address] Monocytes (Bld) [#/Vol] 0.80 10*3/uL Normal 0.10 - 1.00 [facility] Comment on above: Performed By: #### C BCDF #### [address] [address] Monocytes/100 WBC (Bld) 6.4 % Normal 2.0 - 10.0 [facility] Comment on above: Performed By: #### C BCDF #### [address] [address] Neutrophils (Bld) [#/Vol] 8.90 10*3/uL High 1.20 - 7.70 [facility] Comment on above: Result Comment: Perc ent differential counts (%) should be interpreted in the context of the absolute cell counts (cells/L). Performed By: #### C BCDF #### [address] [address] Neutrophils/100 WBC (Bld) 68.6 % Normal 40.0 - 80.0 [facility] Comment on above: Performed By: #### C BCDF #### [address] [address] NUCLEATED RBC 0.1 /100 WBC Normal [facility] Comment on above: Performed By: #### C BCDF #### [address] [address] Platelets (Bld) [#/Vol] 369 10*3/uL Normal 150 - 450 [facility] Comment on above: Performed By: #### C BCDF #### [address] [address] RBC 4.44 x10E12/L Normal 4.00 - 5.20 [facility] Comment on above: Performed By: #### C BCDF #### [address] [address] WBC (Bld) [#/Vol] 12.9 10*3/uL High 4.4 - 11.3 [facility] Comment on above: Performed By: #### C BCDF #### [address] [address] COMPREHENSIVE PANELon 2021 Albumin [Mass/Vol] 4.2 g/dL Normal 3.4 - 5.0 [facility] Comment on above: Performed By: #### C MP #### [address] [address] ALP [Catalytic activity/Vol] 97 U/L Normal 33 - 110 [facility] Comment on above: Performed By: #### C MP #### [address] [address] ALT [Catalytic activity/Vol] 23 U/L Normal 7 - 45 [facility] Comment on above: Result Comment: Karen ents treated with Sulfasalazine may generate falsely decreased results for ALT. Performed By: #### C MP #### [address] [address] Anion gap [Moles/Vol] 11 mmol/L Normal 10 - 20 [facility] Comment on above: Performed By: #### C MP #### [address] [address] AST [Catalytic activity/Vol] 21 U/L Normal 9 - 39 [facility] Comment on above: Performed By: #### C MP #### [address] [address] Bilirubin [Mass/Vol] 0.8 mg/dL Normal 0.0 - 1.2 [facility] Comment on above: Performed By: #### C MP #### [address] [address] Calcium [Mass/Vol] 9.0 mg/dL Normal 8.6 - 10.3 [facility] Comment on above: Performed By: #### C MP #### [address] [address] Chloride [Moles/Vol] 103 mmol/L Normal 98 - 107 [facility] Comment on above: Performed By: #### C MP #### [address] [address] Creatinine [Mass/Vol] 0.88 mg/dL Normal 0.50 - 1.05 [facility] Comment on above: Performed By: #### C MP #### [address] [address] GFR/1.73 sq M.predicted among non-blacks MDRD (S/P/Bld) [Vol rate/Area] 77 mL/min/{1.73_m2} Normal >90 [facility] Comment on above: Result Comment: CALC ULATIONS OF ESTIMATED GFR ARE PERFORMED USING THE 2020 CKD-EPI STUDY REFIT EQUATION WITHOUT THE RACE VARIABLE FOR THE IDMS-TRACEABLE CREATININE METHODS. https://jasn.asnjournals.org/content/early//ASN.043860 6891 Performed By: #### C MP #### [address] [address] Glucose [Mass/Vol] 103 mg/dL High 74 - 99 [facility] Comment on above: Performed By: #### C MP #### [address] [address] HCO3 (Bld) [Moles/Vol] 28 mmol/L Normal 21 - 32 [facility] Comment on above: Performed By: #### C MP #### [address] [address] Potassium [Moles/Vol] 3.7 mmol/L Normal 3.5 - 5.3 [facility] Comment on above: Performed By: #### C MP #### [address] [address] Protein [Mass/Vol] 7.6 g/dL Normal 6.4 - 8.2 [facility] Comment on above: Performed By: #### C MP #### [address] [address] Sodium [Moles/Vol] 138 mmol/L Normal 136 - 145 [facility] Comment on above: Performed By: #### C MP #### [address] [address] Urea nitrogen [Mass/Vol] 11 mg/dL Normal 6 - 23 [facility] Comment on above: Performed By: #### C MP #### [address] [address] [address] ABDOMEN AND PELVIS WO CON TRASTon 07-06-2022 CT ABDOMEN AND PELVIS WO CONTRAST STUDY: CT Abdomen and Pelvis without IV Contrast; 07/06/2022, 11:47AM INDICATION: Left flank pain with hematuria. Vaginal irritation for 2-3 days. Additional History: History of rectocele, cystocele. Partial hysterectomy. Cholecystectomy. COMPARISON: None Available. ACCESSION NUMBER(S): [id number] ORDERING CLINICIAN: SARAH SHELTON CNP TECHNIQUE: CT of the abdomen and pelvis was performed. Contiguous axial images were obtained at 3 mm slice thickness through the abdomen and pelvis. Coronal and sagittal reconstructions at 3 mm slice thickness were performed. No intravenous contrast was administered. Automated mA/kV exposure control was utilized and patient examination was performed in strict accordance with principles of ALARA. FINDINGS: Please note that the evaluation of vessels, lymph nodes and organs is limited without intravenous contrast. LOWER CHEST: No cardiomegaly. No pericardial effusion. Lung bases are clear. ABDOMEN: LIVER: No hepatomegaly. Smooth surface contour. There is fatty infiltration of the liver. There are granulomas in the liver. BILE DUCTS: No intrahepatic or extrahepatic biliary ductal dilatation. GALLBLADDER: The gallbladder is absent. STOMACH: No abnormalities identified. PANCREAS: No masses or ductal dilatation. SPLEEN: There are granulomas in the spleen. ADRENAL GLANDS: No thickening or nodules. KIDNEYS AND URETERS: Kidneys are normal in size and location. No renal or ureteral calculi. PELVIS: BLADDER: No abnormalities identified. REPRODUCTIVE ORGANS: The patient status post hysterectomy. BOWEL: There is diverticulosis. The appendix is identified and is normal. VESSELS: No abnormalities identified. Abdominal aorta is normal in caliber. PERITONEUM/RETROPERITO NEUM/LYMPH NODES: No free fluid. No pneumoperitoneum. No lymphadenopathy. ABDOMINAL WALL: No abnormalities identified. SOFT TISSUES: No abnormalities identified. BONES: No acute fracture or aggressive osseous lesion. IMPRESSION: No evidence for renal or ureteral calculi. No evidence of hydronephrosis. Diverticulosis without diverticulitis. Hepatic steatosis. No acute findings. Signed by Willy Grande MD Electronically signed by: WILLY GRANDE MD Normal [facility] CT Abdomen and Pelvis withou t Contraston 07-06-2022 CT Abdomen and Pelvis WO contrast Normal -[place] [facility] and Work Phone: Complete Blood Count + Diffe rentialon 07-06-2022 Basophils/100 WBC (Bld) 0.7 % 0.0 - 2.0 [facility] and Work Phone: Erythrocyte distribution width (RBC) [Ratio] 13.2 % See Below [facility] and Work Phone: Comment on above: Reference Range: 11. 5 - 14.5 Hematocrit (Bld) [Volume fraction] 40.3 % See Below [facility] and Work Phone: Comment on above: Reference Range: 36. 0 - 46.0 Hemoglobin (Bld) [Mass/Vol] 13.4 g/dL See Below [facility] and Work Phone: Comment on above: Reference Range: 12. 0 - 16.0 Lymphocytes/100 WBC (Bld) 24.2 % See Below [facility] and Work Phone: Comment on above: Reference Range: 13. 0 - 44.0 MCHC (RBC) [Mass/Vol] 33.2 g/dL See Below [facility] and Work Phone: Comment on above: Reference Range: 32. 0 - 36.0 MCV (RBC) [Entitic vol] 91 fL 80 - 100 [facility] and Work Phone: Monocytes/100 WBC (Bld) 6.4 % 2.0 - 10.0 [facility] and Work Phone: Neutrophils/100 WBC (Bld) 68.6 % See Below [facility] and Work Phone: Comment on above: Reference Range: 40. 0 - 80.0 Platelets (Bld) [#/Vol] 369 10*3/uL 150 - 450 [facility] and Work Phone: RBC (Bld) [#/Vol] 4.44 {x10E12/L} See Below [facility] and Work Phone: Comment on above: Reference Range: 4.0 0 - 5.20 WBC (Bld) [#/Vol] 12.9 10*3/uL above high threshold 4.4 - 11.3 [facility] and Work Phone: Complete Blood Count + Differential 0.10 {x10E9/L} See Below [facility] and Work Phone: Comment on above: Reference Range: 0.0 0 - 0.10 Complete Blood Count + Differential 0.00 {x10E9/L} See Below [facility] and Work Phone: Comment on above: Reference Range: 0.0 0 - 0.70 Complete Blood Count + Differential 0.80 {x10E9/L} See Below [facility] and Work Phone: Comment on above: Reference Range: 0.1 0 - 1.00 Complete Blood Count + Differential 3.10 {x10E9/L} See Below [facility] and Work Phone: Comment on above: Reference Range: 1.2 0 - 4.80 Complete Blood Count + Differential 8.90 {x10E9/L} above high threshold See Below [facility] and Work Phone: Comment on above: Reference Range: 1.2 0 - 7.70 Percent differential counts (%) should be interpreted in the context of the absolute cell counts (cells/L). Complete Blood Count + Differential 0.1 % 0.0 - 6.0 [facility] and Work Phone: Complete Blood Count + Differential 0.1 {/100_WBC} [facility] and Work Phone: Cult, Urineon 07-06-2022 Bacteria identified Cx Nom (U) Abnormal [facility] and Work Phone: Laboratory - Chemistry and C hemistry - challengeon 07-06-2022 Albumin BCP dye [Mass/Vol] 4.2 g/dL 3.4 - 5.0 [facility] and Work Phone: ALP [Catalytic activity/Vol] 97 U/L 33 - 110 [facility] and Work Phone: ALT With P-5'-P [Catalytic activity/Vol] 23 U/L 7 - 45 [facility] and Work Phone: Comment on above: Patients treated wit h Sulfasalazine may generate falsely decreased results for ALT. Anion gap [Moles/Vol] 11 mmol/L 10 - 20 [facility] and Work Phone: AST With P-5'-P [Catalytic activity/Vol] 21 U/L 9 - 39 [facility] and Work Phone: Bilirubin [Mass/Vol] 0.8 mg/dL 0.0 - 1.2 [facility] and Work Phone: Calcium [Mass/Vol] 9.0 mg/dL 8.6 - 10.3 [facility] and Work Phone: Chloride [Moles/Vol] 103 mmol/L 98 - 107 [facility] and Work Phone: CO2 [Moles/Vol] 28 mmol/L 21 - 32 [facility] and Work Phone: Creatinine [Mass/Vol] 0.88 mg/dL See Below [facility] and Work Phone: Comment on above: Reference Range: 0.5 0 - 1.05 Glucose [Mass/Vol] 103 mg/dL above high threshold 74 - 99 [facility] and Work Phone: Potassium [Moles/Vol] 3.7 mmol/L 3.5 - 5.3 [facility] and Work Phone: Protein [Mass/Vol] 7.6 g/dL 6.4 - 8.2 [facility] and Work Phone: Sodium [Moles/Vol] 138 mmol/L 136 - 145 [facility] and Work Phone: Urea nitrogen [Mass/Vol] 11 mg/dL 6 - 23 [facility] and Work Phone: No Panel Informationon 07-06 77 {mL/min/1.73m2} >90 [facility] and Work Phone: Comment on above: CALCULATIONS OF BETHANY MATED GFR ARE PERFORMED USING THE 2020 CKD-EPI STUDY REFIT EQUATION WITHOUT THE RACE VARIABLE FOR THE IDMS-TRACEABLE CREATININE METHODS.https://jasn.asnjournals.org/content/early// N.1825777156 Provider Note - ED v3on 06-08 Provider Note - ED v3 Provider Note: Chart Review: HISTORY OF PRESENTING ILLNESS JEIMY is a 57 year old Female and was seen by me at 06-Jul-2022 11:50 for a chief complaint of hematuria (Amb to ED with c/o vaginal irritation x 2-3 days. Had hematuria and L low back and ab pain this am. Has been using OTC Monistat)(1). Triage Information: Most recent Vital Sign Value Date Temp (F): 98.1 07-06-2022 11:50 Temp (C): 36.7 07-06-2022 11:50 Heart Rate (beats/min): 78 07-06-2022 11:50 Respirations (breaths/min): 16 07-06-2022 11:50 SpO2 (%): 95 07-06-2022 11:50 BP Systolic (mm Hg): 145 07-06-2022 11:50 BP Diastolic (mm Hg): 103 07-06-2022 11:50 PAST MEDICAL HISTORY ALLERGIES/INTOLERANCES : Allergy Allergen: Darvocet-N 100 Type: Drug Reaction: Other HEALTH HISTORY: No documented data. OUTPATIENT MEDICATIONS: Home Medications Review Status for Reconciliation: Complete Med Status: Patient Currently Takes Medications Drug Name: Monistat 3 vaginal kit Instructions: 1 suppository(ies) vaginal once a day (at bedtime) Drug Name: Excedrin oral tablet Instructions: 2 tab(s) orally every 6 hours, As Needed Drug Name: albuterol 90 mcg/inh inhalation aerosol Instructions: 2 puff(s) inhaled every 6 hours, As Needed Drug Name: cephalexin 500 mg oral tablet Instructions: 1 tab(s) orally 4 times a day Drug Name: fluconazole 150 mg oral tablet Instructions: 1 tab(s) orally once may repeat in 3 days if not improved SIGNIFICANT EVENTS: Past Medical History Description:Hyster Description:multiple vaginal suregeries CRITICAL CARE RESULTS: Recent Lab Results: I have reviewed these laboratory results: Complete Blood Count + Differential 06-Jul-2022 12:25:00 ResultValue White Blood Cell Count 12.9 H Nucleated Erythrocyte Count 0.1 Red Blood Cell Count 4.44 HGB 13.4 HCT 40.3 MCV 91 MCHC 33.2 PLT 369 RDW-CV 13.2 Neutrophil % 68.6 Lymphocyte % 24.2 Monocyte % 6.4 Eosinophil % 0.1 Basophil % 0.7 Neutrophil Count 8.90 H Lymphocyte Count 3.10 Monocyte Count 0.80 Eosinophil Count 0.00 Basophil Count 0.10 Comprehensive Metabolic Panel 06-Jul-2022 12:25:00 ResultValue Glucose, Serum 103 H NA 138 K 3.7 CL 103 Bicarbonate, Serum 28 Anion Gap, Serum 11 BUN 11 CREAT 0.88 GFR Female 77 Calcium, Serum 9.0 ALB 4.2 ALKP 97 T Pro 7.6 T Bili 0.8 Alanine Aminotransferase, Serum 23 Aspartate Transaminase, Serum 21 Urinalysis with Culture if Indicated 06-Jul-2022 12:13:00 ResultValue Color, Urine Yellow Reference Range: STRAW,YELLOW Appearance, Urine HAZY Specific [place], Urine 1.014 pH, Urine 5.0 Protein, Urine NEGATIVE Glucose, Urine NEGATIVE Blood, Urine LARGE(3+) A Ketones, Urine NEGATIVE Bilirubin, Urine NEGATIVE Urobilinogen, Urine <2.0 Nitrite, Urine Negative Leukocyte Esterase, Urine SMALL(1+) A Urinalysis, Microscopic 06-Jul-2022 12:13:00 ResultValue White Cells 90 A WBC Clumps OCC Red Blood Cells >182 A Epithelial Cells, Squamous 1 Bacteria, Urine 4+ A Radiology Results: Impression: No evidence for renal or ureteral calculi. No evidence of hydronephrosis. Diverticulosis without diverticulitis. Hepatic steatosis. No acute findings. Signed by Willy Grande MD CT Abdomen and Pelvis without Contrast [Jul 06 2022 2:47PM] VITAL SIGNS: T PRBP SpO2O2(LPM) %FiO2 Method 06-Jul-2022 14:27:[id number] 97 room air, no respiratory support 06-Jul-2022 12:30:[id number]/81 96 room air, no respiratory support 06-Jul-2022 11:50:[id number]/1 03 95 room air, no respiratory support MDM MDM/ED COURSE: PMH: Reviewed PSH: Reviewed Social History: Reviewed. Allergies reviewed. HPI: This is a 57 year old female with history of kidney stone, partial hysterectomy, rectocele/cystocele, frequent UTI, who presents to the ED today with complaints of vaginal pressure, hematuria, left flank pain. Patient states the irritation started 2 or 3 days ago, she thought she was starting to get a yeast infection so she started using Monistat [id number]. Today she noticed hematuria. Nothing taken for pain [id number]. Some nausea, no vomiting. No fevers or chills. Driving today. REVIEW OF SYSTEMS: All other systems reviewed and negative except as listed in HPI. PHYSICAL EXAM: GENERAL: Vitals noted, no distress. Alert and oriented x 3. Non-toxic. CARDIAC: Regular rate, rhythm. No murmurs rubs or gallops. No JVD. PULMONARY: Lungs clear and equal bilaterally. No wheezes rales or rhonchi. No respiratory distress. ABDOMEN: Soft, nondistended, and minimally tender in the left flank, no CVA tenderness. Mild suprapubic pain. No peritoneal signs. Bowel sounds are present and normoactive in all 4 quadrants. No pulsatile masses. EXTREMITIES: No peripheral edema. SKIN: No rash. Warm, dry, and intact. NEURO: No focal neurologic (more content not included)... Normal [facility] Triage - EDon 07-06-2022 Triage - ED Quick Triage: Are You no Have You Given In The Last 6 Weeksno Are You Currently Breastfeedingno The patient and/or guardian verbally acknowledges placement for services into the following (when Urgent Care Service hours are operating):emergency department Chart Review: ARRIVAL INFORMATION Mode of Arrival: private vehicle CHIEF COMPLAINT JEIMY HENRIQUEZ is a Female patient with a chief complaint of hematuria (Amb to ED with c/o vaginal irritation x 2-3 days. Had hematuria and L low back and ab pain this am. Has been using OTC Monistat). Triage Date/Time: 06-Jul-2022 11:50 BLAS: 3 Pain Rating (0-10): 5 = Moderate Pain location: L low back and L low abd Vital Signs: Temperature: 98.1F ( 36.7C) taken temporal Blood Pressure: 145/103 Mean: Heart Rate: 78 Respiratory Rate: 16 Pulse Oximetry: 95% on room air, no respiratory support. Weight: 171.9 pounds. Calculated 78.0 kg. [place] Coma Scale: Best Eye Response: (E4) spontaneous Best Motor Response: (M6) obeys commands Best Verbal Response: (V5) oriented Yoana Score: 15 Cough lasting greater than 3 weeks: no Allergies: yes Mask applied: yes RESIN SHAVER History: hysterectomy Patient has homicidal thoughts: no Symptom Notes: . Symptoms Are POSITIVE For: hematuria and nausea. Symptoms Are Negative For: anorexia, chills, dysuria, fever, flank pain, frequency, malaise and urgency. Risk Screens Suicide Risk Screen In the Past Month: Have you wished you were or wished you could go to sleep and not wake up no In the Past Month: Have you had any actual thoughts of killing yourself no In Your Lifetime: Have you ever done anything, started to do anything, or prepared to do anything to end your life no García Fall Scale Screening Has the patient fallen before (or is the patient in the ED as a result of a fall) has not had a fall Does the patient have an impaired gait does not have impaired gait Is the patient cognitively impaired not cognitively impaired Interventions: García Fall Interventions: LOW INTERVENTIONS: *patient oriented to surroundings and call system, * patient/family falls education completed and documented, *patients fall status communicated during bedside handoff, *whiteboard updated, *mode of toileting discussed with patient, *bed in low position with brakes locked, *call light in reach, * non-skid footwear TRAVEL HISTORY Travel History Coronavirus Screening: no exposure or symptoms Travel Exposure History: NO travel to International locations in the past 30 days PAIN Pain Scale Used: SHIRA Pain Rating (0-10): 5 = Moderate Past Medical History: Past Medical History Reviewedyes multiple vaginal suregeries: Past Medical History, Active Hyster: Past Medical History, Active Electronic Signatures: Kati Lee (RN) (Signed 06-Jul-2022 11:55) Entered: Risk Screens, Pain, Travel History, Chart Review, Scores, Past Medical History Authored: Quick Triage, Risk Screens, Pain, Travel History, Chart Review, Scores, Past Medical History Last Updated: 06-Jul-2022 11:55 by Kati Lee (RN) Normal [facility] UA MICROSCOPICon 07-06-2022 BACTERIA 4+ /HPF Abnormal [facility] Comment on above: Performed By: #### U AMIC #### [place] [address] RBC (U) [#/Vol] /uL Abnormal 0-5 [facility] Comment on above: Performed By: #### U AMIC #### [address] [address] SQUAMOUS EPITH. CELLS 1 /HPF Normal [facility] Comment on above: Performed By: #### U AMIC #### [place] [id number] WBC 90 /HPF Abnormal 0-5 [facility] Comment on above: Performed By: #### U AMIC #### [place] [id number] WBC CLUMPS OCC Normal [facility] Comment on above: Performed By: #### U AMIC #### [place] [id number] URINALYSIS WITH CULTURE IF I NDICATEDon 07-06-2022 Appearance (U) HAZY Normal CLEAR [facility] Comment on above: Performed By: #### U ARFX #### [place] [address] Bilirubin Ql (U) Negative Normal NEGATIVE [facility] Comment on above: Performed By: #### U ARFX #### [place] [address] Color (U) Yellow Normal STRAW,YELLOW [facility] Comment on above: Performed By: #### U ARFX #### [place] [address] Glucose Ql (U) Negative Normal NEGATIVE [facility] Comment on above: Performed By: #### U ARFX #### [place] [address] Hemoglobin Ql (U) LARGE(3+) Abnormal NEGATIVE [facility] Comment on above: Performed By: #### U ARFX #### [place] [address] Ketones Ql (U) Negative Normal NEGATIVE [facility] Comment on above: Performed By: #### U ARFX #### [place] [address] Leukocyte esterase Test strip Ql (U) SMALL(1+) Abnormal NEGATIVE [facility] Comment on above: Performed By: #### U ARFX #### [place] [address] Nitrite Ql (U) Negative Normal NEGATIVE [facility] Comment on above: Performed By: #### U ARFX #### [place] [address] pH (U) 5.0 [pH] Normal 5.0 - 8.0 [facility] Comment on above: Performed By: #### U ARFX #### [place] [address] Protein Ql (U) Negative Normal NEGATIVE [facility] Comment on above: Performed By: #### U ARFX #### [place] [address] Specific gravity (U) [Rel density] 1.014 Normal 1.005 - 1.035 [facility] Comment on above: Performed By: #### U ARFX #### [facility] [address] [place] [address] Urobilinogen (U) [Mass/Vol] mg/dL Normal 0.0 - 1.9 [facility] Comment on above: Performed By: #### U ARFX #### [facility] [address] [place] [address] Color (U) Yellow See Below -[facility] and Work Phone: Comment on above: Reference Range: STR AW,YELLOW Glucose Ql (U) Negative NEGATIVE [facility] and Work Phone: Ketones Ql (U) Negative NEGATIVE [facility] and Work Phone: Leukocyte esterase Test strip Ql (U) SMALL(1+) Abnormal NEGATIVE -[facility] and Work Phone: pH (U) 5.0 [pH] 5.0 - 8.0 -[facility] and Work Phone: Protein (U) [Mass/Vol] Negative NEGATIVE -[place] [facility] and Work Phone: RBC (U) [#/Vol] LARGE(3+) Abnormal NEGATIVE [facility] Work Phone: Specific gravity (U) [Rel density] 1.014 1 See Below [facility] Work Phone: Comment on above: Reference Range: 1.0 05 - 1.035 URINALYSIS WITH CULTURE IF INDICATED Negative NEGATIVE [facility] Work Phone: URINALYSIS WITH CULTURE IF INDICATED <2.0 0.0 - 1.9 [facility] and Work Phone: URINALYSIS WITH CULTURE IF INDICATED HAZY CLEAR [facility] and Work Phone: URINE CULTURE,BACTERIALon URINE CULTURE,BACTERIAL PATIENT: JEIMY HENRIQUEZ [facility] [id number] : 69 AGE: SEX: F ORDERED BY: SARAH SHELTON SOURCE: URINE COLLECTED: 07/06/22 12:13 ANTIBIOTICS AT STAN.: RECEIVED : 07/07/22 06:16 SITE: [facility] U L T S URINE CULTURE,BACTERIAL FINAL 07/09/22 10:54 ISOLATE1 : Escherichia coli >100,000 CFU/ML Organism E coli Antibiotic BP INTRP Amikacin S Ampicillin R Amox/Clavulanate S Ceftriaxone S Cefazolin S Ciprofloxacin S Nitrofurantoin S Gentamicin R Levofloxacin S Piperc/Tazobact S Trimeth/Sulfa R Tobramycin I S=SUSCEPTIBLE I=INTERMEDIATE R=RESISTANT SDD=SUSCEPTIBLE DOSE DEPENDENT NS=NONSUSCEPTIBLE X=REPORTED IN ERROR Normal [facility] Comment on above: Performed By: #### U RINC #### [facility] [id number] [place] [id number] Urinalysis, Microscopicon Urinalysis, Microscopic 4+ Abnormal [facility] and Work Phone: Urinalysis, Microscopic 1 {/HPF} -[facility] and Work Phone: Urinalysis, Microscopic >182 Abnormal 0-5 [facility] and Work Phone: Urinalysis, Microscopic OCC -[facility] and Work Phone: Urinalysis, Microscopic 90 {/HPF} Abnormal 0-5 [facility] and Work Phone: Urgent Care Visit Reporton 1 12-19-2020 Urgent Care Visit Report [facility] [address] [place] [address] 6 [place] [address] OFFICE VISIT Date of Service: 10/18/21 MR#: [id number] Acct: [id number] Name: JEIMY HENRIQUEZ Rep #: [id number] : 1965 Provider: PRIYA Ugalde Age/Sex: 56/F Location: [facility] Status: Signed Intake Vital Signs 10/18/21 07:30 Height 5 ft 1 in Weight: 175 lb BMI 33.0 BP 140/88 H Blood Pressure Location Lt brachial Position Sitting Respiration 16 Pulse 87 Pulse Source Auscultation Temp 98.4 F Temp Source Temporal Pulse Oximetry (%) 97 Oxygen Delivery Method room air Intake Visit Reasons: SORETHROAT/COUGH Allergies latex Allergy (Verified 10/18/21 07:31) Rash acetaminophen [From Darvocet-N 100] Adverse Reaction (Verified 10/18/21 07:31) Other propoxyphene [From Darvocet-N 100] Adverse Reaction (Verified 10/18/21 07:31) Other tramadol [From Ultram] Adverse Reaction (Verified 10/18/21 07:31) Other [facility] Social History (Updated 10/18/21 @ 07:33 by Jazmine Brown) Smoking Status: Never smoker alcohol intake: current alcohol intake frequency: a few times a week Alcohol type: wine HPI HPI Details: JEIMY HENRIQUEZ, is a 56 F who presents to the office today for complaint of cough, congestion, nausea and increased asthma. Patient states that over the past 5 to 6 days she has had a cough which she states has been productive of green to yellow sputum however denies hemoptysis or difficulty breathing. She does state that she has tried to use her inhaler several times during this episode however realized yesterday that it was . She does state also that in the mornings in particular she has been nauseous which improved throughout the day but never has resolved. She denies vomiting or diarrhea. No fever, chills, sweats. 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 No other associated symptoms or alleviating/aggravatin g factors. ROS Const Constitutional: Positive for other (6 system ROS completed with pertinent findings in the HPI otherwise normal.) Exam Const General: cooperative and well developed HENMT Head: normal to inspection and atraumatic Ears: hearing grossly normal bilaterally, TM's normal bilaterally and EAC's normal Nose: nasal discharge clear Face and sinus: normal facial exam Mouth: oral mucosae normal Throat: abnormal tonsil bilaterally hypertrophy 1+ Resp Effort Inspection: normal respiratory effort and no audible wheezes Auscultation: Bilateral: Clear to Auscultation Cardio Palpation: normal PMI Rate: regular rate Rhythm: regular rhythm GI Auscultation: normal bowel sounds Palpation: soft and no hepatosplenomegaly Neuro General: patient alert and CN's II-XI intact bilaterally Psych Appearance: grossly normal Mental Status: mental status grossly normal Results CEPHEID COVID PCR CEPHEID COVID PCR Not DETECTED Last Edit by Sara Larsen on 10/18/21 08:34 Flu A B ; RSV Negative Coding Level of Care Code Off vis,new,level 4 Diagnoses Acute bronchitis J20.9 Asthma J45.909 Nausea R11.0 Assessment and Plan Assessment and Plan (1) Acute bronchitis: Status: Acute (2) Asthma: Status: Acute (3) Nausea: Status: Acute Plan - Geoff POWERS PA: Azithromycin and Medrol Dosepak as prescribed today. Refill of her albuterol inhaler as her previous one has . Zofran as prescribed today for nausea. Patient tested negative for Covid using rapid PCR testing in the office today. Encouraged to get plenty of rest, drink lots of clear liquids, and use Tylenol or Ibuprofen (unless contraindicated) for fever and comfort. Patient also educated on other symptomatic management techniques. To be seen in 7-10 days if no improvement; sooner if worsening of symptoms. Patient advised of potential red flags and when appropriate to report to the ED. Patient verbalized understanding and agreement with all the above. Plan Details Other Medications: New: azithromycin take 500 mg today (day 1), then 250 mg for 4 days (days 2-5) PO 6 tabs 0RF methylprednisolone (Medrol (Aldair)) 4 mg PO PER PKG DIR 5 days 21 tabs 0RF albuterol sulfate 90 mcg/actuation 2 puffs inhalation Q6H PRN 6.7 grams 0RF shortness of breath or wheezing ondansetron HCl (Zofran) 4 mg PO Q8H PRN 20 tabs 0RF nausea and vomiting Other Orders: Orders: POC Cepheid PETER Cov-2 PCR Today 10/18/21 0835 Date Geoff Connell Signature: Date (if applicable) CC: Normal [facility] Vital Signs Date Time Vital Sign Value Performing Clinician Faci sj 12-05-2024 23:24-0500 Diastolic Blood Pressure Non-Invasive 60 mm[Hg] ELISABETH VICENTE MD [facility] 12-05-2024 23:24-0500 Heart rate 66 /min ELISABETH VICENTE MD [facility] 12-05-2024 23:24-0500 Respiratory rate 16 /min ELISABETH VICENTE MD [facility] 12-05-2024 23:24-0500 Systolic Blood Pressure Non-Invasive 111 mm[Hg] ELISABETH VICENTE MD [facility] 12-05-2024 17:57-0500 Blood Pressure Location ELISABETH VICENTE MD [facility] 12-05-2024 17:57-0500 Blood Pressure Method ELISABETH VICENTE MD [facility] 12-05-2024 17:57-0500 Body height 152.4 cm ELISABETH VICENTE MD [facility] 12-05-2024 17:57-0500 Body temperature 99.14 [degF] ELISABETH VICENTE MD [facility] 12-05-2024 17:57-0500 Body weight 79.5 kg ELISABETH VICENTE MD [facility] 12-05-2024 17:57-0500 Diastolic Blood Pressure Non-Invasive 86 mm[Hg] ELISABETH VICENTE MD [facility] 12-05-2024 17:57-0500 Heart rate 77 /min ELISABETH VICENTE MD [facility] 12-05-2024 17:57-0500 Respiratory rate 18 /min ELISABETH VICENTE MD [facility] 12-05-2024 17:57-0500 Systolic Blood Pressure Non-Invasive 132 mm[Hg] ELISABETH VICENTE MD [facility] 06-07-2023 15:37-0400 Body height 152.4 cm Haydee Araiza MD Work Phone: [facility] 06-07-2023 15:37-0400 Body weight 84.37 kg Haydee Araiza MD Work Phone: [facility] 06-07-2023 15:37-0400 Diastolic blood pressure 80 mm[Hg] Haydee Araiza MD Work Phone: [facility] 06-07-2023 15:37-0400 Heart rate 76 /min Haydee Araiza MD Work Phone: [facility] 06-07-2023 15:37-0400 Respiratory rate 16 /min Haydee Araiza MD Work Phone: [facility] 06-07-2023 15:37-0400 Systolic blood pressure 116 mm[Hg] Haydee Araiza MD Work Phone: [facility] 07-20-2022 15:48-0400 Body height 152.4 cm Tamika Brown HAIR SPECIALIST-[employer]ER Work Phone: [facility] Work Phone: 07-20-2022 15:48-0400 Body mass index (BMI) [Ratio] 36.52 kg/m2 Tamika Brown HAIR SPECIALIST-[employer]ER Work Phone: [facility] Work Phone: 07-20-2022 15:48-0400 Body surface area Derived from formula 1.81 m2 Tamika Brown HAIR SPECIALIST-[employer] Work Phone: [facility] Work Phone: 07-20-2022 15:48-0400 Body weight 84.82 kg Tamika Brown HAIR SPECIALIST-[employer] Work Phone: [facility] Work Phone: 07-20-2022 15:48-0400 Diastolic blood pressure 78 mm[Hg] Tamika Brown HAIR SPECIALIST-[employer] Work Phone: [facility] Work Phone: 07-20-2022 15:48-0400 Heart rate 65 /min Tamika Brown HAIR SPECIALIST-[employer] Work Phone: [facility] Work Phone: 07-20-2022 15:48-0400 SaO2% (BldA) [Mass fraction] 97 % Tamika Brown HAIR SPECIALIST-[employer]ER Work Phone: [facility] Work Phone: 07-20-2022 15:48-0400 Systolic blood pressure 128 mm[Hg] Tamika Brown HAIR SPECIALIST-[employer]ER Work Phone: [facility] Work Phone: 07-06-2022 17:00-0400 Diastolic blood pressure 75 mm[Hg] Text Entry Free [facility] 07-06-2022 17:00-0400 Heart rate 68 /min Text Entry Free [facility] 07-06-2022 17:00-0400 Respiratory rate 16 /min Text Entry Free [facility] 07-06-2022 17:00-0400 SaO2% (BldA) [Mass fraction] 99 % Text Entry Free [facility] 07-06-2022 17:00-0400 Systolic blood pressure 109 mm[Hg] Text Entry Free [facility] 07-06-2022 13:50-0400 Body temperature 98.06 [degF] Text Entry Free [facility] 07-06-2022 13:50-0400 Body weight 78 kg Text Entry Free [facility] Encounters Encounter Date Encounter Type Care Provider Facility Start: 04-07-2025 End: 04-07-2025 ambulatory CHUY REDMAN DO Facility:[facility] Start: 04-07-2025 End: 04-07-2025 Patient encounter procedure CHUY REDMAN DO [facility] Start: 02-21-2025 End: 02-21-2025 ambulatory CHUY REDMAN DO Facility:[facility] Start: 02-21-2025 Encounter for genera l adult medical examination without abnormal findings CHUY REDMAN DO [facility] Start: 02-07-2025 End: 02-07-2025 ambulatory CHUY REDMAN DO Facility:[facility] Start: 12-05-2024 End: 12-05-2024 Emergency department patient visit ELISABETH VICENTE MD [facility] Start: 06-08-2023 Telephone encounter No Pcp HAIR SPECIALIST [facility] Kristie Comment on above: Results Start: 06-07-2023 End: 06-08-2023 ambulatory HAYDEE ARAIZA Facility:[facility] Start: 06-07-2023 End: 06-07-2023 Patient encounter procedure Haydee Araiza MD Work Phone: [facility] Kristie Comment on above: Hyperglycemia (Prima ry Dx); Obesity, Class II, BMI 35-39.9 Start: 04-05-2023 ambulatory Haydee Araiza MD Work Phone: [facility] Start: 08-10-2022 Chart Update Tamika Brown Work Phone: [facility] 205 DO Work Phone: Start: 08-04-2022 ambulatory Ms. Tamika Brown Fac ility:[id number] Start: 07-22-2022 Chart Update Tamika Brown Work Phone: [facility] 205 DO Work Phone: Start: 07-20-2022 Office outpatient ne w 45 minutes Tamika Brown Work Phone: [facility] 205 DO Work Phone: Start: 07-20-2022 Patient encounter procedure Tamika Kevin HAIR SPECIALIST-[employer]ER Work Phone: [facility] Work Phone: Start: 07-20-2022 ambulatory Ms. Tamika Brown Fac ility:[id number] Start: 07-06-2022 End: 07-06-2022 Emergency department patient visit Sarah Gonzalezclare [facility] Emergency 04 Start: 05-04-2022 ambulatory Haydee Araiza MD Work Phone: [facility] Start: 01-22-2019 End: 01-22-2019 Patient encounter procedure Other Other [facility] Procedures Date Procedure Procedure Detail Performing Clinician Start: 04-30-2019 Colonoscopy Jose Luis Araiza MD Work Phone: Start: 03-18-2019 Mammography Jose Luis Araiza MD Work Phone: Cholecystectomy Tamika Brown HAIR SPECIALIST-[employer]ER Work Phone: Hysterectomy Tamika Brown APR N-P[employer]P ROLLER Work Phone: Hysterectomy CHUY REDMAN D O Comment on above: rectecele, cystocele 2005 Repair of bladder Tamikaeryn Edwardsor e HAIR SPECIALIST-[employer]ER Work Phone: Repair of cystocele Tamika Mo ore HAIR SPECIALIST-[employer]ER Work Phone: Repair of rectocele Tamika Mo ore HAIR SPECIALIST-[employer] Work Phone: Vaginoplasty CHUY VALENZUELAINS D O Comment on above: 2009 Plan of Treatment Date Care Activity Detail Author Start: 04-30-2029 Colonoscopy COLONOSCOPY [facility] Start: 04-30-2029 COLORECTAL CANCER SCREENING COLORECTAL CANCER SCREENING [facility] Start: 06-07-2028 LIPID SCREEN LIPID SCREEN [facility] Start: 06-07-2026 DIABETES SCREEN DIABETES SCREEN [facility] Start: 03-12-2024 LIPID SCREEN LIPID SCREEN [facility] Start: 07-07-2023 Influenza vaccination C [facility] Start: 06-07-2023 End: 08-07-2023 Hemoglobin A1c in Blood [facility] Work Phone: Comment on above: Expected: 06/07/2023 , Expires: 08/07/2023 Start: 07-07-2022 Influenza vaccination INFLUENZ A (Season Ended) [facility] Start: 05-11-2022 COVID-19 VACCINE (4 - Moderna series) COVID-19 VACCINE (4 - Moderna series) [facility] Start: 03-12-2022 [facility]ABET[facility]CRE[facility] Start: 03-18-2020 Mammography MAMMOGRAM [facility] Start: 03-08-2019 Urine microalbumin profile DTAP,TDAP,TD (1 - Tdap) [facility] Start: 07-07-2018 Influenza vaccination INFLUENZA VACC INE (#1) [facility] Start: 2017 Protein mass conc COLON CANCER SCREENING DISCUSSION [facility] Start: 2017 SHINGRIX VACCINE (1 of 2) SHINGRIX VACCINE (1 of 2) [facility] Start: 2017 Zoster vaccine hzv l benito for subcutaneous use ZOSTER (SHINGLES) VACCINE (1 of 2) [facility] Start: 2012 COLOGUARD (FIT-DNA) COLOGUARD (FIT-D NA) [facility] Start: [address] COLONOGRAPHY [facility] Start: 2012 FECAL OCCULT BLOOD FECAL OCCULT BLOO D [facility] Start: 2012 SIGMOIDOSCOPY SIGMOIDOSCOPY [facility] Start: 2007 Fasting lipid profile LIPID SCREENIN G [facility] Start: 2007 Protein mass conc MAMMOGRAM SC REENING DISCUSSION [facility] Start: 1988 Screening for malign ant neoplasm of cervix PAP SMEAR DISCUSSION [facility] Start: 1986 Third diphtheria, tetanus and acellular pertussis (DTaP) vaccination TDAP (ADULT) [facility] Start: 1985 Tetanus vaccination TETANUS [facility] Start: 1980 HIV screening HIV SCREENING DISCUSSION [facility] Start: 1972 COVID-19 VACCINE (#1) COVID-19 VACCI NE (#1) [facility] Start: 1965 COVID-19 VACCINE (#1) COVID-19 VACCI NE (#1) [facility] Start: 1965 HEPATITIS B (1 of 3 - 3-dose series) HEPATITIS B (1 of 3 - 3-dose series) [facility] End: 05-04-2024 LACHO SCREENING LACHO SCREENING Radiology Routine Encounter for screening mammogram for breast cancer 1 Occurrences starting 04/05/2023 until 05/04/2024 [facility] Work Phone: Comment on above: 1 Occurrences starti ng 04/05/2023 until 05/04/2024 End: 06-03-2023 Screening mammography bi 2-view breast inc cad LACHO SCREENING Radiology Routine Encounter for screening mammogram for breast cancer 1 Occurrences starting 05/04/2022 until 06/03/2023 [facility] Work Phone: Comment on above: 1 Occurrences starti ng 05/04/2022 until 06/03/2023 Immunizations Immunization Date Immunization Notes Care Provider Fa [facility] 08-25-2022 influenza virus vaccine, unspecified formulation CHUY REDMAN DO [facility] 08-25-2022 influenza, injectabl e, quadrivalent, preservative free Haydee Araiza MD Work Phone: [facility] 03-16-2022 Pfizer-BioNTech COVID-19 Vacc 30 MCG/0.3ML Intramuscular Suspension Tamika Brown HAIR SPECIALIST-[employer]ER Work Phone: [facility] Comment on above: Result Comment: 2024: TPV4 03-11-2021 Moderna COVID-19 Vaccine 100 MCG/0.5ML Intramuscular Suspension Tamika Brown [employer] Work Phone: [facility] Comment on above: Result Comment: 2024: TPV50 02-11-2021 Moderna COVID-19 Vaccine 100 MCG/0.5ML Intramuscular Suspension Tamika Brown HAIR SPECIALIST-[employer] Work Phone: [facility] Comment on above: Result Comment: 2024: TPV50 03-07-2019 tetanus and diphther ia toxoids, adsorbed, preservative free, for adult use (5 Lf of tetanus toxoid and 2 Lf of diphtheria toxoid) Haydee Araiza MD Work Phone: [facility] 08-20-2016 influenza virus vaccine, whole virus Haydee Araiza MD Work Phone: [facility] 08-06-2014 influenza virus vaccine, unspecified formulation CHUY REDMAN DO [facility] 08-06-2014 influenza, seasonal, injectable Tamika Brown HAIR SPECIALIST-[employer] Work Phone: [facility] Payers Date Payer Category Payer Unknown [id number] 2024 Unknown [id number] 2022 Private Health Insurance [id number] 2021 Private Health Insurance [id number] 2020 Unknown MARKOS DOSS PPO [id number] 2020-Present [phone] [address] [place] [address] PPO [id number] 2020 Unknown 1965 Unknown [id number] 1965 Unknown [id number] 1965 Unknown [id number] 1965 Unknown [id number] 1965 Unknown [id number] 1965 Unknown [id number] 1965 Unknown [id number] Self-pay [id number] Social History Date Type Detail [facility] Start: 1965 Sex Assigned At Not on file O [facility] Start: 03-07-2019 End: 02-07-2025 Tobacco smoking status NHIS Ex-smoker [facility] Comment on above: was not a consistant smoker, only when going out with friends. 1 pack would last 2-3 months. End: 03-07-2017 History of tobacco use Current smoker [facility] End: 03-07-2017 History of tobacco use Cigarette Smoker [facility] Start: 04-27-2020 End: 06-07-2023 Alcohol intake Current drinker of alcohol (finding) [facility] Start: 04-27-2020 End: 10-11-2020 Alcohol intake [facility] Start: 04-27-2020 History SDOH Alcohol Std Drinks 1 [facility] Start: 04-27-2020 History SDOH Social Connections Phone 5 [facility] Start: 04-27-2020 History SDOH Social Connections Get Together 3 [facility] Start: 04-27-2020 History SDOH Social Connections [facility] 2 [facility] Start: 04-27-2020 Education 15 [facility] Tobacco smoking consumption unknown [facility] Start: 03-07-2019 End: 06-07-2023 Tobacco use and exposure Smokeless tobacco non-user [facility] Work Phone: Start: 10-11-2020 End: 06-06-2023 Social connection and isolation panel [facility] Do you belong to any clubs or organizations such as orthodox groups, unions, fraternal or athletic groups, or school groups? No [facility] Are you now , , , , never or living with a partner? [facility] How often to you hav e a drink containing alcohol? Monthly or less [facility] How many standard dr inks containing alcohol do you have on a typical day? 1 or 2 [facility] How often do you hav e 6 or more drinks on 1 occasion? Never [facility] How hard is it for y ou to pay for the very basics like food, housing, medical care, and heating Not hard at all [facility] Do you feel stress - tense, restless, nervous, or anxious, or unable to sleep at night because your mind is troubled all the time - these days [OSQ] Rather much [facility] (I/We) worried faye er (my/our) food would run out before (I/we) got money to buy more. Never true [facility] Start: 12-05-2024 Tobacco smoking status Never s moked tobacco (finding) [facility] Sexual Orientation [facility]ital Sex Female (finding) [facility] Medical Equipment Procedure Code Equipment Code Equipment Origin al Text Equipment Identifier Dates Tvt Device Gynec are [id number] - [id number] Start: 01-05-2010 Functional Status Date Assessment Result Facility 12-05-2024 Functional Status ID band on, Call device within reach [facility] Mental Status Date Assessment Result Facility 12-05-2024 Mental Status Oriented x 4 [facility] Clinical Notes 07-06-2022 to 12-11-2024 Note Date & Type Note Facility 12-11-2024 Note . MICRO - Microbiology PROCEDURE: Blood Culture (bacterial) [*1] SOURCE: Blood BODY SITE: COLLECTED DATE/TIME: 12/05/2024 21:09 EST RECEIVED DATE/TIME: 12/06/2024 16:00 EST START DATE/TIME: 12/06/2024 16:00 EST FREE TEXT SOURCE: FINAL REPORTS Final Report [] Verified Date/Time/Personnel: 12/11/2024 16:59 EST Blood Culture: No Growth at 5 days. PRELIMINARY REPORTS Preliminary Report [] Verified Date/Time/Personnel: 12/06/2024 16:59 EST Culture has been received in lab and is no growth to date. Routine cultures are held for 5 days. Performing Locations *1: This test was performed at: [facility], [address] [place] [address], [id number] , [facility] 12-11-2024 Note . MICRO - Microbiology PROCEDURE: Blood Culture (bacterial) [*1] SOURCE: Blood BODY SITE: COLLECTED DATE/TIME: 12/05/2024 21:09 EST RECEIVED DATE/TIME: 12/06/2024 16:00 EST START DATE/TIME: 12/06/2024 16:00 EST FREE TEXT SOURCE: FINAL REPORTS Final Report [] Verified Date/Time/Personnel: 12/11/2024 16:59 EST Blood Culture: No Growth at 5 days. PRELIMINARY REPORTS Preliminary Report [] Verified Date/Time/Personnel: 12/06/2024 16:59 EST Culture has been received in lab and is no growth to date. Routine cultures are held for 5 days. Performing Locations *1: This test was performed at: [facility], [address] [place] [address], [id number] , [facility] 12-06-2024 Hospital Discharg e instructions Patient Education 12/05/2024 22:00:12 Influenza (Adult) Influenza (Adult) Influenza is also called the flu. It is a viral illness that affects the air passages of your lungs. It is different from the common cold. The flu can easily be passed from one to person to another. It may be spread through the air by coughing and sneezing. Or it can be spread by touching the sick person and then touching your own eyes, nose, or mouth. The flu starts 1 to 3 days after you are exposed to the flu virus. It may last for 1 to 2 weeks but many people feel tired or fatigued for many weeks afterward. You usually don t need to take antibiotics unless you have a complication. This might be an ear or sinus infection or pneumonia. Symptoms of the flu may be mild or severe. They can include extreme tiredness (wanting to stay in bed all day), chills, fevers, muscle aches, soreness with eye movement, headache, and a dry, hacking cough. Home care Follow these guidelines when caring for yourself at home: Avoid being around cigarette smoke, whether yours or other people s. Acetaminophen or ibuprofen will help ease your fever, muscle aches, and headache. Don t give aspirin to anyone younger than 18 who has the flu. Aspirin can harm the liver. Nausea and loss of appetite are common with the flu. Eat light meals. Drink 6 to 8 glasses of liquids every day. Good choices are water, sport drinks, soft drinks without caffeine, juices, tea, and soup. Extra fluids will also help loosen secretions in your nose and lungs. Wdmr-ven-dxdztzs cold medicines will not make the flu go away faster. But the medicines may help with coughing, sore throat, and congestion in your nose and sinuses. Don t use a decongestant if you have high blood pressure. Stay home until your fever has been gone for at least 24 hours without using medicine to reduce fever. Follow-up care Follow up with your healthcare provider, or as advised, if you are not getting better over the next week. If you are age 65 or older, talk with your provider about getting a pneumococcal vaccine every 5 years. You should also get this vaccine if you have chronic asthma or COPD. All adults should get a flu vaccine every fall. Ask your provider about this. When to seek medical advice Call your healthcare provider right away if any of these occur: Cough with lots of colored mucus (sputum) or blood in your mucus Chest pain, shortness of breath, wheezing, or trouble breathing Severe headache, or face, neck, or ear pain New rash with fever Fever of 100.4 F (38 C) or higher, or as directed by your healthcare provider Confusion, behavior change, or seizure Severe weakness or dizziness You get a new fever or cough after getting better for a few days [id number] [employer]. [address] [place] [address]. All rights reserved. This information is not intended as a substitute for professional medical care. Always follow your healthcare professional's instructions. Follow Up Care 12/05/2024 17:55:43 With:Call VICKY Avendano Pt. Refferral [phone] Address:Unknown When:2-[address] [facility] 12-05-2024 Note Discharge Instructions Thank you for allowing [facility] to assist you with your healthcare needs. The following is important discharge information regarding your hospital visit. What to Do Next Instructions from Your Care Team Discharge Return to Work, School, or Sports (Return to Work, School, or Sports) - Ordered -- within 1-3 days, May return to: work, 12/05/24 21:59:00 EST Post Acute Orders No qualifying data available. You Need to Schedule the Following Appointments Follow Up with Call VICKY Avendano Pt. Refferral [phone] When:Within 2-4 days Allergies Latex penicillin Medications Please ask your primary doctor or pharmacist before taking any other medication not listed, including over the counter drugs, herbal medications, vitamins and or supplements as they may interact with your home medications. What How Much When Instructions Last Dose New benzonatate (Tessalon Perles 100 mg oral capsule) 1 cap by mouth Three (3) times a day as needed for as needed for cough Duration: 7 Days Printed Prescription Unchanged DULoxetine (DULoxetine 60 mg oral delayed release capsule) 1 cap by mouth Once a day Unchanged hydrOXYzine (hydrOXYzine pamoate 50 mg oral capsule) 1 cap by mouth Three (3) times a day as needed for NEEDED FOR ANXIETY Please take this list to your next doctor s visit. Bring all medications you take, including over the counter medications, herbals and other supplements with you to your doctor s visit. Patients and families are reminded to discard old lists and to update any records with all medication providers or retail pharmacies. Education Materials Influenza (Adult) Influenza is also called the flu. It is a viral illness that affects the air passages of your lungs. It is different from the common cold. The flu can easily be passed from one to person to another. It may be spread through the air by coughing and sneezing. Or it can be spread by touching the sick person and then touching your own eyes, nose, or mouth. The flu starts 1 to 3 days after you are exposed to the flu virus. It may last for 1 to 2 weeks but many people feel tired or fatigued for many weeks afterward. You usually don t need to take antibiotics unless you have a complication. This might be an ear or sinus infection or pneumonia. Symptoms of the flu may be mild or severe. They can include extreme tiredness (wanting to stay in bed all day), chills, fevers, muscle aches, soreness with eye movement, headache, and a dry, hacking cough. Home care Follow these guidelines when caring for yourself at home: Avoid being around cigarette smoke, whether yours or other people s. Acetaminophen or ibuprofen will help ease your fever, muscle aches, and headache. Don t give aspirin to anyone younger than 18 who has the flu. Aspirin can harm the liver. Nausea and loss of appetite are common with the flu. Eat light meals. Drink 6 to 8 glasses of liquids every day. Good choices are water, sport drinks, soft drinks without caffeine, juices, tea, and soup. Extra fluids will also help loosen secretions in your nose and lungs. Mkmt-yur-stfzbfy cold medicines will not make the flu go away faster. But the medicines may help with coughing, sore throat, and congestion in your nose and sinuses. Don t use a decongestant if you have high blood pressure. Stay home until your fever has been gone for at least 24 hours without using medicine to reduce fever. Follow-up care Follow up with your healthcare provider, or as advised, if you are not getting better over the next week. If you are age 65 or older, talk with your provider about getting a pneumococcal vaccine every 5 years. You should also get this vaccine if you have chronic asthma or COPD. All adults should get a flu vaccine every fall. Ask your provider about this. When to seek medical advice Call your healthcare provider right away if any of these occur: Cough with lots of colored mucus (sputum) or blood in your mucus Chest pain, shortness of breath, wheezing, or trouble breathing Severe headache, or face, neck, or ear pain New rash with fever Fever of 100.4 F (38 C) or higher, or as directed by your healthcare provider Confusion, behavior change, or seizure Severe weakness or dizziness You get a new fever or cough after getting better for a few days [id number] [employer]. [address] [place] [address]. All rights reserved. This information is not intended as a substitute for professional medical care. Always follow your healthcare professional's instructions. Additional Information VACCINATE! IT SAVES LIVES! Members of the community who have not yet received the COVID-19 vaccine and would like to receive it can visit one of [facility] vaccine clinics. There are many vaccine clinic locations within the [facility]. For locations and available times, please visit [email or web address] [email or web address] It is important to note that some COVID mobile vaccine clinics are held outdoors and may be canceled in rainy or stormy conditions. To learn more about pediatric vaccinations (ages 5-11), we invite you to visit the [facility] webpage. [email or web address].[email or web address]/p [email or web address]-Iiobm-Diwadnyeqkg-Freq qjfryq-Sgvcm-Ukwqbonow.html To learn more about the COVID-19 vaccine, we invite you to visit the CDC website for a list of frequently asked questions. https://www.cdc.gov/coronavirus/ 2019-ncov/vaccines/faq.html [facility] Patient Portal Access Instructions: Stay connected with your healthcare team and access your personal medical information anytime with the [facility] Patient Portal. If you would like a full copy of your medical records please contact the [facility] Medical Records Department Monday through Monday between 8a.m. and 4:30p.m. Please follow the directions below to access the portal: 1.Access the email account you provided upon registration to the [facility].2.Look for an invitation email from [facility].3.Open the email and access the invitation link: Accept Invitation to [facility]4.Fill in the required augustin to create your account. Sign into [email or web address] with your username and password that you created in the above steps to stay up to date. You can then view a summary of results, a summary of your visits, and the ability to download your summaries to your computer or send the information securely to a physician. Remember that your healthcare information is confidential, so carefully consider who you will allow to register on the [facility] Patient Portal for access to your information. You can also access the [facility] Patient Portal on the [employer] garo. Simply click on Health Records under Health Data and then click on the [employer] logo. HOW TO SAFELY DISPOSE OF PRESCRIPTION MEDICATIONS Please use one of the following methods to safely dispose of your unused medications. 1.Use a drug disposal kit: the drug disposal pouch allows you to safely discard your old and unused drugs. Ask your nurse to give you one when you are discharged.2.Visit a local take-back location: Many local pharmacies and police departments have programs that collect old and unwanted prescription drugs. Call your local pharmacy or go to http://bit.ly/0S4Ye7r to find one close to you.3.Make use of household items: Use cat litter or old coffee grounds to dispose medications if other options are not available. Mix your drugs with these household products, seal them in an airtight container and throw it into the garbage. Call [facility]: [phone] to be sure your drugs can be disposed of in this way. Some medicines may require a different approach.4.Never flush your medications down the toilet. IF YOU HAVE BEEN PRESCRIBED AN OPIOIDS FOR PAIN If you have been prescribed an opioid (such as hydrocodone, oxycodone or morphine), it is critical to understand the possible side effects and risks of opioid pain medications. Even when taken as directed, opioids can have several side effects including: Tolerance, meaning you might need to take more of a medication for the same pain relief. Nausea, vomiting and/or constipation. Sleepiness, dizziness, dry mouth, confusion, depression or itching. Physical dependence, meaning you have withdrawal symptoms when a medication is stopped ? this can develop within a few days. KNOW YOUR RESPONSIBILITIES It is important to know exactly how much and how often to take the opioid pain medications you are prescribed. Never take opioids in higher amounts or more often than prescribed. Do not combine opioids with alcohol or other drugs that cause drowsiness, such as benzodiazepines, also known as benzos, including diazepam and alprazolam, muscle relaxants or sleep aids. Never sell or share prescription opioids. This is illegal. Store opioids in a secure place and out of reach of others (including children, family, friends and visitors). The last page(s) of this document has been signed and retained as a CHART COPY Signatures Patient Education Materials Influenza (Adult) Medication Leaflets My discharge plan and instructions have been reviewed and explained to me and I,JEIMY HENRIQUEZ understand my current condition and have read and understand these discharge instructions. I have received a written copy of the plan/instructions. If I have questions, I am aware that I should contact my doctor. 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 12-05-2024 Note Exam Date Time Procedure Performing Provider Status 12/05/24 8:42 PM XR Chest 1 View Contributor_system, SILVINA REESE; Auth (Verified) [id number] ORIGINAL EXAMINATION: ONE XRAY VIEW OF THE CHEST12/05/2024 8:43 pm COMPARISON: None. HISTORY: ORDERING SYSTEM PROVIDED HISTORY: Reason for Exam: cough, headache, vomiting and diarrhea since monday. 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 There is no pulmonary vascular congestion. There is no focal consolidation. No significant volume pleural effusion. No pneumothorax. Slight elevation of the right hemidiaphragm. Right upper quadrant surgical clips. IMPRESSION: No acute cardiopulmonary process. Preliminary Report was Dictated by a Resident I have personally reviewed all of the images of this examination and agree with the resident findings and interpretation. Interpreted by: Adeel Melgar MD Preliminary Report By: Arturo Rodríguez Electronically signed By Adeel Melgar MD Dictated Date: 12/05/2024 9:13:28 PM Prelim Date: 12/05/2024 9:14:22 PM Sign Date: 12/05/2024 10:09:22 PM Ordering Provider: ELISABETH VICENTE [facility]01-30-2025 Note* Exam Date Time Procedure Performing Provider Status 12/05/24 8:18 PM EKG [ED AOH] - CV ELISABETH VICENTE MD; Auth (Verified) ECG Final Report Sinus rhythm Anteroseptal infarct, age indeterminate Electronic Signature: ELISABETH VICENTE MD 12/05/2024 21:58:[address] [facility]01-30-2025 Evaluation + Plan note Diagnostic Tests Pending * Blood Culture (bacterial) 12/05/24 * Blood Culture (bacterial) 12/05/[address] [facility] 08-04-2023 Miscellaneous Notes* Telephone Encounter - Maggie Guerrero RN - 06/09/2023 2:50 PM EDT Phoned pt and gave provider's message below with verbalized understanding. Pt agreeable. * Telephone Encounter - Natty Mcgregor LPN - 06/08/2023 10:09 AM EDT Phoned patient to advise of reults and recommendations. Patient didn't answer and VM full. * Telephone Encounter - Natty Mcgregor LPN - 06/08/2023 10:09 AM EDT ----- Message from Haydee Araiza MD sent at 06/08/2023 8:04 AM EDT ----- A1c in prediabetic range at 5.8. recommend low carb diet and regular exercise as discussed in office. Other labs normal. No new rx. documented in this encounter[facility]08-02-2023 NoteHNO ID: [id number] Author: Haydee Araiza MD Service: ? Author Type: Physician Type: Progress Notes Filed: 06/07/2023 4:32 PM Note Text: Chief Complaint Patient presents with: Diabetes HPI Jeimy Henriquez is a 58 year old female who presents here today for Evaluation of possible diabetes. Last visit with our office more than 3 years ago. Patient states that she was diagnosed with diabetes back in 2000 and was on medication years ago, but her A1c that I can see from 2002 have been <5.7. States that after she had COVID in October and then again a month ago she has had a change in taste and has been eating sweets and foods higher in carbs. She has been checking sugars before each meal with average of 110-125, but has seen readings as high as 170. Admits to polydipsia, blurred vision in the last year since she got new glasses. Denies polyuria, polydipsia, numbness/tingling. Past medical history, appointments, medications, allergies reviewed. Previous Medical History PAST MEDICAL HISTORY Diagnosis Date Arthritis seen by rheumatology in the past. told inflammatory arthritis in all joints. Asthma Bipolar 1 disorder (HCC) 2019 Breast nodule 2016 left Depression Fibromyalgia Insomnia Migraines Obesity (BMI 30-39.9) PTSD (post-traumatic stress disorder) 2018 Uterine prolapse s/p hysterectomy Previous Surgical History PAST SURGICAL HISTORY Procedure Laterality Date BX BREAST W/DEVICE 1ST LESION ULTRASOUND GUID Left 05/17/16 U/S core bx UOQ left breast CHOLECYSTECTOMY Cholecystectomy COLONOSCOPY FLX DX W/COLLJ SPEC WHEN PFRMD 04/30/2019 Colonoscopy PAST SURGICAL HISTORY OF 2005 Cystocele, Rectocele, Mesh, hysterectomy PAST SURGICAL HISTORY OF 2006 Vaginal repair post-op PAST SURGICAL HISTORY OF 2009 vaginal reconstruction VAGINAL HYSTERECTOMY UTERUS 250 GM/< Hysterectomy, vaginal Family History FAMILY HISTORY Problem Relation Age of Onset Coronary Artery Disease Mother stent Asthma Mother Allergies Mother Coronary Artery Disease Brother stent Alcohol/Drug Brother Diabetes Father Heart Father CHF Hypertension Father Heart Maternal Grandfather MA Cancer Maternal Grandmother brain/ breast Patient Allergies ALLERGIES Allergen Reactions Adhesive Tape ([place]* Darvocet-N 100 [Pro* Tongue blisters Latex Itching Ultram [Tramadol Hc* Other: See Comments costa over entire body Wellbutrin [Bupropi* Intolerance Hallucinations Current Medications Current Outpatient Medications on File Prior to Visit Medication Sig albuterol HFA (PROVENTIL HFA, VENTOLIN HFA) 90 mcg/actuation inhaler Inhale 2 Puffs as instructed every 6 hours as needed. risperiDONE (RISPERDAL) 0.5 mg tablet Take 0.5 mg by mouth daily at bedtime. topiramate (TOPAMAX) 50 mg tablet Take 50 mg by mouth once daily. traZODone (DESYREL) 50 mg tablet Take 50 mg by mouth daily at bedtime. hydrOXYzine HCl (ATARAX) 25 mg tablet Take 1 tablet by mouth three times daily as needed. (Patient not taking: Reported on 05/13/2019 ) amitriptyline (ELAVIL) 10 mg tablet Take 1 tablet by mouth daily at bedtime. hydrOXYzine pamoate (VISTARIL) 25 mg capsule Take 25-50 mg every 8 hours as needed for anxiety meloxicam (MOBIC) 15 mg tablet Take 1 tablet by mouth once daily. Take with food. No current facility-administered medications on file prior to visit. Social History Social History Tobacco Use Smoking status: Former Packs/day: 1.00 Years: 8.00 Total pack years: 8.00 Types: Cigarettes Quit date: 03/07/2017 Years since quittin.2 Smokeless tobacco: Never Substance Use Topics Alcohol use: Yes Alcohol/week: 2.5 standard drinks of alcohol Types: 1 Cans of Beer (12oz) per week Comment: social Drug use: No Review of Symptoms REVIEW OF SYSTEMS See HPI EXAM: BP 116/80 Pulse 76 Resp 16 Ht 152.4 cm (5') Wt 84.4 kg (186 lb) BMI 36.33 kg/m? General Appearance: Well appearing, alert, in no acute distress, well-hydrated, well nourished.. Skin: Skin color, texture, turgor normal, no suspicious rashes or lesions. Lungs: Lungs clear to auscultation. No wheezing, rhonchi, rales.. Heart: RRR without murmur, gallop, or rubs. No ectopy. Abdomen: Normal abdominal exam, Abdomen soft, non-tender. Bowel sounds normal. No masses, organomegaly. Extremities: No deformities, edema, skin discoloration, clubbing or cyanosis. Good capillary refill. . Health Maintenance List HEPATITIS B(1 of 3 - 3-dose series) Never done SHINGRIX VACCINE(1 of 2) Never done DTAP,TDAP,TD(1 - Tdap) due on 03/08/2019 MAMMOGRAM due on 03/18/2020 DIABETES SCREEN due on 03/12/2022 COVID-19 VACCINE(4 - Moderna series) due on 05/11/2022 INFLUENZA(1) due on 07/07/2023 LIPID SCREEN due on 03/12/2024 COLORECTAL CANCER SCREENING due on 04/30/2029 HEPATITIS C SCREENING Completed HIV SCREENING Completed PAP TESTING Discontinued HPV TESTING (more content not included)...[facility]08-02-2023 History of Present illness Narrative* Haydee Araiza MD - 06/07/2023 3:42 PM EDT Chief Complaint Patient presents with: Diabetes HPI Jeimy Henriquez is a 58 year old female who presents here today for Evaluation of possible diabetes. Last visit with our office more than 3 years ago. Patient states that she was diagnosed with diabetes back in 2000 and was on medication years ago, but her A1c that I can see from 2002 have been <5.7. States that after she had COVID in October and then again a month ago she has had a change in taste and has been eating sweets and foods higher in carbs. She has been checking sugars before each meal with average of 110-125, but has seen readings as high as 170. Admits to polydipsia, blurred vision in the last year since she got new glasses. Denies polyuria, polydipsia, numbness/tingling. Past medical history, appointments, medications, allergies reviewed. Previous Medical History PAST MEDICAL HISTORY Diagnosis Date Arthritis seen by rheumatology in the past. told inflammatory arthritis in all joints. Asthma Bipolar 1 disorder (HCC) 2019 Breast nodule 2016 left Depression Fibromyalgia Insomnia Migraines Obesity (BMI 30-39.9) PTSD (post-traumatic stress disorder) 2019 Uterine prolapse s/p hysterectomy Previous Surgical History PAST SURGICAL HISTORY Procedure Laterality Date BX BREAST W/DEVICE 1ST LESION ULTRASOUND GUID Left 05/17/16 U/S core bx UOQ left breast CHOLECYSTECTOMY Cholecystectomy COLONOSCOPY FLX DX W/COLLJ SPEC WHEN PFRMD 04/30/2019 Colonoscopy PAST SURGICAL HISTORY OF 2005 Cystocele, Rectocele, Mesh, hysterectomy PAST SURGICAL HISTORY OF 2006 Vaginal repair post-op PAST SURGICAL HISTORY OF 2009 vaginal reconstruction VAGINAL HYSTERECTOMY UTERUS 250 GM/< Hysterectomy, vaginal Family History FAMILY HISTORY Problem Relation Age of Onset Coronary Artery Disease Mother stent Asthma Mother Allergies Mother Coronary Artery Disease Brother stent Alcohol/Drug Brother Diabetes Father Heart Father CHF Hypertension Father Heart Maternal Grandfather MA Cancer Maternal Grandmother brain/ breast Patient Allergies ALLERGIES Allergen Reactions Adhesive Tape ([place]* Darvocet-N 100 [Pro* Tongue blisters Latex Itching Ultram [Tramadol Hc* Other: See Comments costa over entire body Wellbutrin [Bupropi* Intolerance Hallucinations Current Medications Current Outpatient Medications on File Prior to Visit Medication Sig albuterol HFA (PROVENTIL HFA, VENTOLIN HFA) 90 mcg/actuation inhaler Inhale 2 Puffs as instructed every 6 hours as needed. risperiDONE (RISPERDAL) 0.5 mg tablet Take 0.5 mg by mouth daily at bedtime. topiramate (TOPAMAX) 50 mg tablet Take 50 mg by mouth once daily. traZODone (DESYREL) 50 mg tablet Take 50 mg by mouth daily at bedtime. hydrOXYzine HCl (ATARAX) 25 mg tablet Take 1 tablet by mouth three times daily as needed. (Patient not taking: Reported on 05/13/2019 ) amitriptyline (ELAVIL) 10 mg tablet Take 1 tablet by mouth daily at bedtime. hydrOXYzine pamoate (VISTARIL) 25 mg capsule Take 25-50 mg every 8 hours as needed for anxiety meloxicam (MOBIC) 15 mg tablet Take 1 tablet by mouth once daily. Take with food. No current facility-administered medications on file prior to visit. Social History Social History Tobacco Use Smoking status: Former Packs/day: 1.00 Years: 8.00 Total pack years: 8.00 Types: Cigarettes Quit date: 03/07/2017 Years since quittin.2 Smokeless tobacco: Never Substance Use Topics Alcohol use: Yes Alcohol/week: 2.5 standard drinks of alcohol Types: 1 Cans of Beer (12oz) per week Comment: social Drug use: No Review of Symptoms REVIEW OF SYSTEMS See HPI EXAM: BP 116/80 Pulse 76 Resp 16 Ht 152.4 cm (5') Wt 84.4 kg (186 lb) BMI 36.33 kg/m General Appearance: Well appearing, alert, in no acute distress, well-hydrated, well nourished.. Skin: Skin color, texture, turgor normal, no suspicious rashes or lesions. Lungs: Lungs clear to auscultation. No wheezing, rhonchi, rales.. Heart: RRR without murmur, gallop, or rubs. No ectopy. Abdomen: Normal abdominal exam, Abdomen soft, non-tender. Bowel sounds normal. No masses, organomegaly. Extremities: No deformities, edema, skin discoloration, clubbing or cyanosis. Good capillary refill. . Health Maintenance List HEPATITIS B(1 of 3 - 3-dose series) Never done SHINGRIX VACCINE(1 of 2) Never done DTAP,TDAP,TD(1 - Tdap) due on 03/08/2019 MAMMOGRAM due on 03/18/2020 DIABETES SCREEN due on 03/12/2022 COVID-19 VACCINE(4 - Moderna series) due on 05/11/2022 INFLUENZA(1) due on 07/07/2023 LIPID SCREEN due on 03/12/2024 COLORECTAL CANCER SCREENING due on 04/30/2029 HEPATITIS C SCREENING Completed HIV SCREENING Completed PAP TESTING Discontinued HPV TESTING Discontinued ASSESSMENT/PLAN: 1. Hyperglycemia - ICD9: 790.29, ICD10: R73.9 (primary diagnosis) Obtain labs as ordered to work up DM. Discussed low carb diet and exercise. Given booklet for home on meal planning. - CBC + DIFF - COMP METABOLIC PANEL - HGB A1C - LIPID PANEL, NONFASTING 2. Obesity, Class II, BMI 35-39.9 - ICD9: 278.00, ICD10: E66.9 Newly diagnosed - Behavioral intervention - CBC + DIFF - COMP METABOLIC PANEL - HGB A1C - LIPID PANEL, NONFASTING Haydee Araiza MD documented in this encounterSumma Health05-31-2023 NotePatient Outreach (INTMMN) JEIMY SAL ([id number]) 1965 F Date Time Provider Department 04/05/23 HAYDEE ARAIZA [facility]MMN During your visit today, we recorded the following information about you: Allergies As of Date: 04/05/2023 Noted Allergy Reaction ADHESIVE TAPE (ROSINS) 01/05/2010 DARVOCET-N 100 (PROPOXYPHENE N-AC*10/05/2009 Comments: Tongue blisters LATEX 12/28/2009 9 - Itching ULTRAM (TRAMADOL HCL) 05/17/2016 14 - Other: See Comments Comments: costa over entire body WELLBUTRIN (BUPROPION HCL) 04/08/2019 5 - Intolerance Comments: Hallucinations Date Reviewed: 04/27/2020 Reviewed by: Dany Bridges Ma - Fully Assessed Visit Diagnosis:Encounter for screening mammogram for breast cancer [Z12.31] Order(s):[facility] SCREENING [[id number]] Order #: [id number] FUTURE Prescriptions as of 04/10/2023 - risperiDONE (RISPERDAL) 0.5 mg tablet Take 0.5 mg by mouth daily at bedtime. - topiramate (TOPAMAX) 50 mg tablet Take 50 mg by mouth once daily. - traZODone (DESYREL) 50 mg tablet Take 50 mg by mouth daily at bedtime. - hydrOXYzine HCl (ATARAX) 25 mg tablet Take 1 tablet by mouth three times daily as needed. - amitriptyline (ELAVIL) 10 mg tablet Take 1 tablet by mouth daily at bedtime. - hydrOXYzine pamoate (VISTARIL) 25 mg capsule Take 25-50 mg every 8 hours as needed for anxiety - albuterol HFA (PROVENTIL HFA, VENTOLIN HFA) 90 mcg/actuation inhaler Inhale 2 Puffs as instructed every 6 hours as needed. - meloxicam (MOBIC) 15 mg tablet Take 1 tablet by mouth once daily. Take with food. Problem List As Of Date 04/05/2023 Noted Resolved Depression [F32.A] Fibromyalgia [M79.7] 09/18/2015 Abnormal mammogram [R92.8] 05/17/2016 Encounter Status:Closed by [employer], [employer]ara[employer] WorksUSER on 04/10/23[facility] 07-06-2022 History of Present illness Narrative* 57 year old female here to establish care. She was seen in ER on 07/06 for UTI complaints. * UTI: Was given Rocephin and Cephalexin from ER. Still having symptoms. * DM: HbA1c was around 5 last drawn. * Has had an elevated AHA in the past, joint pain. * anxiety; Has increased. bipolar depression. * Mammogram: last one 2018, [facility] * Colonoscopy Done in 04/30/2019 [facility] Work Phone: [phone] History of Present illness Narrative* 57 year old female here to establish care. She was seen in ER on 07/06 for UTI complaints. We reviewed CT abdomen/pelvis * UTI: Was given Rocephin and Cephalexin from ER. Still having symptoms. * DM: HbA1c was around 5 last drawn. * Has had an elevated AHA in the past, joint pain. * anxiety: Has increased. Has been told she has bipolar depression. She reports she is going through a divorce and found out her has cheated on her. She would like STI testing since she is still having urinary complaints after ATB. * Fibromyalgia: Has tried Cymbalta in the past, but made her Bipolar worse. Believes she was tested for rheumatoid disorders a long time ago, but were negative. She would like to be tested again. * Health maintenance: * Mammogram: last one 2018, [facility] * Pap:has had a hysterectomy * Colonoscopy Done in 04/30/2019 [facility] * Labs: Needs updated * Social Hx: * Tobacco: occasional * ETOH: 2-3/week * Drugs: denies * Caffeine: 2 cups/day [facility] 205 DO Work Phone: Evaluation + Plan note Future Appointments Appointment Date:05/13/2025 01:30:00 PM Scheduled Provider:CHUY REDMAN DO Location:[facility] Appointment Type: OV Future Scheduled Tests Radiology* MA Mammo Screening Bilateral w/ Pérez 02/07/[address] [facility] Evaluation note* Diagnosis Encounter for screening mammogram for breast cancer [facility]* Diagnosis Encounter for screening mammogram for breast cancer documented in this encounter [facility] note* Diagnosis Hyperglycemia- Primary Other abnormal glucose Obesity, Class II, BMI 35-39.9 Obesity, unspecified documented in this encounter [facility] course Narrative No data available for this section [facility] Hospital Discharge instructions No data available for this section [facility] Progress note No data available for this section [facility] Reason for referral (narrative)* Diagnostic Procedure Only (Routine) - Pending Review Specialty Diagnoses / Procedures Referred By Contac t Referred To Contact [facility] Diagnoses Encounter for screening mammogram for breast cancer Procedures LACHO SCREENING SCREENING MAMMOGRAPHY BI 2-VIEW BREAST INC Haydee Guzman MD [address] [place] [address] [facility] [address] [place] [address] Referral ID Status Reason Start Date Expiration Date Visits Requested Visits Authorized [id number] Pending Review Auto-Generat ed Referral 05/04/2022 06/03/2023 [facility] Diagnostic Procedure Only (Routine) - Pending Review Specialty Diagnoses / Procedures Referred By Torres t Referred To Contact [facility] Diagnoses Encounter for screening mammogram for breast cancer Procedures LACHO SCREENING SCREENING MAMMOGRAPHY BI 2-VIEW BREAST INC CAD Haydee Araiza MD [address] [place] [address] [facility] [address] [place] [address] Referral ID Status Reason Start Date Expiration Date Visits Requested Visits Authorized [id number] Pending Review Auto-Generat ed Referral 04/05/2023 05/04/2024 1 1 T [facility] Summary Purpose Family History No Family History Records FoundUnknown Family Member Name Dates Details No pertinent family history: Mother, Father(V49.89, Z78.9) Status:Active Unknown Family Member Name Dates Details No pertinent family history: Mother, Father(V49.89, Z78.9) Status:Active Unknown Family Member Name Dates Details No pertinent family history: Mother, Father(V49.89, Z78.9) Status:Active Unknown Family Member Name Dates Details No pertinent family history: Mother, Father(V49.89, Z78.9) Status:Active Advance Directives No Advanced Directives Records FoundDocuments on File Type Date Recorded 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 Advance Directive(s) 04/30/2019 6:30 AM Advance Directive(s) 04/10/2019 2:50 PM Advance Directive(s) 01/06/2010 9:53 PM Documents on File Type Date Recorded 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 Additional Source Comments INFORMATION SOURCE (unrecogn ized section and content) DATE CREATED AUTHOR 12/05/2021 [facility] DATE CREATED AUTHOR AUTHOR'S ORGANIZ ATION 08/03/2022 [facility] DATE CREATED AUTHOR AUTHOR'S ORGANIZ ATION 08/06/2022 [employer] DATE CREATED AUTHOR AUTHOR'S ORGANIZ ATION 08/12/2022 [facility] DATE CREATED AUTHOR AUTHOR'S ORGANIZ ATION 06/10/2023 [facility] DATE CREATED AUTHOR AUTHOR'S ORGANIZ ATION 04/08/2025 [facility] Source Comments (unrecognize d section and content) In the event this informatio n is protected by the Federal Confidentiality of Alcohol and Drug Abuse Patient Records regulations: The Federal rules restrict any use of the information to criminally investigate or prosecute any alcohol or drug abuse patient.[facility] the event this information is protected by the Federal Confidentiality of Alcohol and Drug Abuse Patient Records regulations: The Federal rules restrict any use of the information to criminally investigate or prosecute any alcohol or drug abuse patient.[facility] the event this information is protected by the Federal Confidentiality of Alcohol and Drug Abuse Patient Records regulations: The Federal rules restrict any use of the information to criminally investigate or prosecute any alcohol or drug abuse patient.[facility] the event this information is protected by the Federal Confidentiality of Alcohol and Drug Abuse Patient Records regulations: The Federal rules restrict any use of the information to criminally investigate or prosecute any alcohol or drug abuse patient.[facility] Care Teams (unrecognized sec tion and content) Motor Man Relationship Specialty Start Date End Date Haydee Araiza MD [address] [place] [address] PCP - General Family Practice 03/07/19 Motor Man Relationship Specialty Start Date End Date Haydee Araiza MD [address] [place], [place] [id number] PCP - General Family Medicine 03/07/19 <item><item> Privacy Markings (unrecogniz ed section and content) Section Author: Adore Guerrero PROHIBITION ON REDISCLOSURE OF CONFIDENTIAL INFORMATION This notice accompanies a disclosure of information concerning a client made to you with the consent of such client. Section Author: Adore Guerrero PROHIBITION ON REDISCLOSURE OF CONFIDENTIAL INFORMATION This notice accompanies a disclosure of information concerning a client made to you with the consent of such client. Reason for Visit (unrecogniz ed section and content) Reason Comments Diabetes Reason Comments Results FOR RECORDS PERTAINING TO PATIENTS WHO ARE OR HAVE BEEN ENROLLED IN A CHEMICAL DEPENDENCY/SUBSTANCEABUSE PROGRAM, SOME INFORMATION MAY BE OMITTED. This clinical summary was aggregated from multiple sources. Caution should be exercised in using it in the provision of clinical care. This summary normalizes information from multiple sources, and as a consequence, information in this document may materially change the coding, format and clinical context of patient data. In addition, data may be omitted in some cases. CLINICAL DECISIONS SHOULD BE BASED ON THE PRIMARY CLINICAL RECORDS. [employer] [facility]. provides no warranty or guarantee of the accuracy or completeness of information in this document.
[2025-09-21 12:09] LABS: Hematocrit 39.2 % (37-47); Hemoglobin 13.0 g/dL (12.0-15.0); Immature Granulocytes Count 0.040 X10^3/uL (0.0-0.0); Mean Corp Hgb Conc 33.2 g/dL (32-36); Mean Corpuscular Volume 91.8 fL (81-99); Mean Platelet Vol. 9.4 fl (6.2-12.0); NRBC Flagged by Analyzer 0 % (0-5); Platelet Count 329 K/mm3 (150-450); RBC Distribution Width CV 13.2 % (11.6-14.6); RBC Distribution Width SD 44.8 fl (35.1-43.9); Red Blood Count 4.27 M/mm3 (4.2-5.4); White Blood Count 10.2 K/mm3 (4.4-11.0)
--- NOTE | 2025-09-21 12:15 | CM.ED ---
Social Work Date of referral: 09/21/25 Reason for referral: Stroke Alert Table Cut Off Saw Operator responded to stroke alert in triage. (11:37) Table Cut Off Saw Operator met with patient and her daughter to check on them and see how they were doing; patient asked for nurse to go to the bathroom which social media analyst secured for patient. Patient denied any other needs/concerns at this time. Gloria Greenfield, PAYROLL TECHNICIAN, CAR SALES ASSOCIATE
[2025-09-21 12:18] LABS: Prothrombin Time (Protime)PT. 13.3 SECONDS (11.7-14.9)
[2025-09-21 12:19] LABS: Partial Thromboplast Time 23.8 Seconds (24.1-36.2)
[2025-09-21] MEDS: 0.9% Normal Saline (500mL Bag) 500 ML 999 ML IV (13:00)
[2025-09-21 13:04] LABS: Troponin T High Sensitivity 6 ng/L (<=14)
[2025-09-21 13:08] LABS: Anion Gap 10 (5-15); BUN 10 mg/dL (4-19); BUN/Creat Ratio 15.9 RATIO (10-20); Carbon Dioxide 18.2 mmol/L (21.0-32.0); Chloride 110 mmol/L (98-108); Estimated Creatinine Clearance 93.12 ml/min (50-250); Glucose 80 mg/dL (70-99)
[2025-09-21 13:15] LABS: Calcium,Total 6.2 mg/dL (7.6-11.0); Potassium 2.6 mmol/L (3.3-5.1)
--- NOTE | 2025-09-21 13:49 | HP.PCM.HOS_ITS ---
HPI - General General Date of Admission: 09/21/25 Date of Service: 09/21/25 Chief Complaint: stroke like symptoms HPI Narrative CHRISTIAN HENRIQUEZ, is a 60 F with a PMH as outlined who was admitted via the ED on 09/21/2025 with a complaint of stroke like symptoms. She was admitted with a complaitn of altered vision as well a dizziness. Her symptoms started on the morning of the day of admission. She felt like images were in half when she looked at people. She feels her symptoms improved a bit but still persisted so she came in to the ED. She denied any chest pain, palpitations, nausea, vomiting, shortness of breath, focal weakness. She admits to some episodic numbness and tingling over the left side of her face but denies any other symptoms. She says she has recently put herself on a very strict diet to help control her diabetes better. Review of systems is otherwise negative. Vitals in the ED were blood pressure 123/91, pulse rate of 77, respiratory rate of 16 and oxygen saturation of 100% on room air. CBC showed hemoglobin of 13 with WBC of 10.2 and platelets of 329. INR was 1. Chemistry showed sodium of 137 potassium of 3.6 and bicarb of 18.2. Anion gap was 10. Creatinine was 0.61. Calcium was 6.2. CT of the brain showed no acute intracranial pathology and CTA of the head and neck showed no hemodynamically significant stenosis. She has been admitted to manage for stroke rule out as well as hypokalemia and hypocalcemia. [facility] no medical history Home Medications ?Medication ?Instructions ?Recorded ?Last Taken ?Type pbxqrbn-meoqukkdyqwms-pnjbynai 250 1 tab PO Q6H PRN pa in 09/21/25 09/18/25 History mg-250 mg-65 mg tablet (Excedrin Extra Strength) fluticasone propionate 50 1 spray intranasal BID 09/21 Unknown History mcg/actuation nasal spray,suspension tirzepatide 5 mg/0.5 mL 5 mg subcut QWEEK 09/21/25 1 11/14/24 History subcutaneous pen injector (Mouncarolro) Allergy/AdvReac Type Severity Reaction Status Date / Time latex Allergy Rash Verified 09/21/25 11:36 acetaminophen (From AdvReac Other Verified 09/21/25 11:36 Darvocet-N 100) propoxyphene (From AdvReac Other Verified 09/21/25 11:36 Darvocet-N 100) tramadol (From Ultram) AdvReac Other Verified 09/21/25 11:36 Family History no significant family his Surgical History no surgical history Social History Smoking Status: Never smoker alcohol intake: current alcohol intake frequency: a few times a week Alcohol type: wine ROS Constitutional Constitutional: Reports fatigue and malaise; Denies anorexia, chills or fever(s) Eyes Eyes: Reports change in vision ENT HEENT: Denies dysphagia or headache(s) Cardiovascular Cardiovascular: Denies chest pain, dyspnea on exertion, edema, lightheadedness, orthopnea, palpitations, rapid heart rate or syncope Respiratory/Chest Respiratory/Chest: Denies cough, dyspnea, productive cough, shortness of breath at rest or shortness of breath with exertion Gastrointestinal Gastrointestinal: Denies abdominal pain, constipation, diarrhea, nausea or vomiting Musculoskeletal Musculoskeletal: Denies back pain Neurologic Neurologic: Reports paresthesias and tingling; Denies confusion, disequilibrium, dizziness, focal weakness, headache(s), numbness, seizure-like activity, seizures or syncope Psychiatric Psychiatric: Denies anxiety Vital Signs Vital Signs Vital Signs: 09/21/25 11:36 09/21/25 11:57 09/21/25 12:02 Temperature 97.9 F Temperature Source Oral Pulse Rate 77 80 Respiratory Rate 16 19 H Blood Pressure 154/113 H 152/113 H 131/85 H Blood Pressure Mean 126 126 100 Pulse Ox 100 100 Oxygen Delivery Method Room Air 09/21/25 12:07 09/21/25 12:09 Temperature Temperature Source Pulse Rate 77 Respiratory Rate 16 Blood Pressure 123/91 H Blood Pressure Mean 101 Pulse Ox 100 100 Oxygen Delivery Method Room Air Room Air Weight Weight: 165 lb 5.547 oz Body Mass Index (BMI) 31.2 Physical Exam Const alert, oriented x3, no apparent distress, average body habitus and healthy appearing General Appearance: cooperative HEENT normocephalic, head/scalp atraumatic, hearing grossly normal bilaterally, moist oral mucous membranes and oropharynx normal Mouth: oral and palatal mucosa normal Eyes conjunctivae normal Neck supple Resp normal respiratory effort, no retractions, no use of accessory muscles and clear to auscultation bilaterally Cardio regular rate, regular rhythm, S1 normal heart sound, S2 normal heart sound and no murmurs GI normal to inspection, nondistended, normoactive bowel sounds, soft to palpation, non-tender and non-distended Extremity normal to inspection, full ROM and no clubbing, cyanosis or edema Neuro oriented x3, CN's II-XII intact bilaterally, moves all extremities and no focal motor deficits Sensorium / Orientation: awake and alert Motor Exam: strength 5/5 throughout Psych affect normal Results Lab / Micro Data 09/21/25 11:55 09/21/25 11:55 Labs: Laboratory Results - last 24 hr 09/21/25 11:55: WBC 10.2, RBC 4.27, Hgb 13.0, Hct 39.2, MCV 91.8, MCH 30.4, MCHC 33.2, RDW Std Deviation 44.8 H, RDW Coeff of Radha 13.2, Plt Count 329, MPV 9.4, Immature Gran % (Auto) 0.400, Neut % (Auto) 65.6, Lymph % (Auto) 26.7, [place] % (Auto) 6.6, Eos % (Auto) 0.4, Baso % (Auto) 0.3, Absolute Neuts (auto) 6.7, Absolute Lymphs (auto) 2.72, Nucleated RBC % 0, PT 13.3, INR 1.0, APTT 23.8 L, Sodium 137, Potassium 2.6 L*, Chloride 110 H, Carbon Dioxide 18.2 L, Anion Gap 10, BUN 10, Creatinine 0.61 L, Estim Creat Clear Calc 93.12, Est GFR (MDRD) Non- Af 103, BUN/Creatinine Ratio 15.9, Glucose 80, Calcium 6.2 L*, Troponin T High Sens 6 09/21/25 12:42: POC Glucose 89 Imaging Radiology Impression Brain CT 09/21/25 11:39 IMPRESSION: Unremarkable CT head without acute intracranial abnormalities. Stroke Alert: No acute intracranial abnormalities The critical findings in the findings and impression above were relayed directly by me by telephone to Jamin Joya on 09/21/2025 at 12:03 pm with readback verification. Reading Location: [id number] Head/Neck CTA 09/21/25 11:39 IMPRESSION: No CTA evidence of ICA or CCA stenosis No CTA evidence of intracranial stenosis or vaso occlusive disease No aneurysm or vascular malformation Patent vertebral arteries Reading Location: [facility] Assessment & Plan Assessment/Plan (1) Change in vision: (2) Stroke-like symptoms: PLAN: Plan #Stroke like symptoms * Admit to PCU. Was admitted with a complaint of altered vision. Says she felt like she was seeing half of images. His symptoms have improved now. * NIH stroke scale is 0. * CT of the brain showed no acute intracranial pathology. CTA of the head and neck showed no hemodynamically significant stenosis. * Placed on aspirin and high intensity statin. Get MRI of the brain. Hold BP meds and allow for permissive hypertension in case of stroke. * Consult PT OT. Fall precautions. Consult [facility] neurology. * Get 2D echo * * #Hypokalemia: * Potassium is 2.6. Will replace aggressively and monitor. Patient says she has modified her diet recently to try to lose weight because of her diabetes. I suspect that her gastric diet may be contributing to her hypokalemia. #Hypocalcemia: Also likely related to her newly modified strict diet. Calcium is 6.2. Also replete with IV calcium and monitor. #Type 2 diabetes mellitus: On Mounjaro 5 mg subcu weekly. Insulin sliding scale. ACT checks ACHS CODE STATUS: Full code * Charges/Coding Visit Charges Inpatient E&M: 75703 Init Hosp L3
[2025-09-21] MEDS: Potassium Chloride Oral Tablet 20 MEQ 60 MEQ PO (14:05)
[2025-09-21 14:34] LABS: Magnesium 2.0 mg/dL (1.5-2.2)
[2025-09-21 14:39] LABS: Troponin T High Sens 2 HR 11 ng/L (<=14)
--- OUTSIDE RECORDS SUMMARY | 2025-09-21 14:50 | XMS RPT_ITS | CCD ---
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 [Entitic mass] 31.0 pg Normal 27.0-33.0 [facility] Comment on above: Performed By: #### G FR, MG, CMP, 167077, VIDH, A1C, 823739, TSHR, LIPID, FES, FERR #### [place] [address] #### B12 #### [place] [address] MCHC 34.4 G/dL Normal 32.0-36.0 [facility] Comment on above: Performed By: #### G FR, MG, CMP, 854453, VIDH, A1C, 637710, TSHR, LIPID, FES, FERR #### [place] [address] #### B12 #### [place] [address] MCV (RBC) [Entitic vol] 90.1 fL Normal 80.0-99.0 [facility] Comment on above: Performed By: #### G FR, MG, CMP, 547516, VIDH, A1C, 184595, TSHR, LIPID, FES, FERR #### [place] [address] #### B12 #### [place] [address] Platelet 253 10 3/mcL Normal 150-450 [facility] Comment on above: Performed By: #### G FR, MG, CMP, 610927, VIDH, A1C, 957868, TSHR, LIPID, FES, FERR #### [place] [address] #### B12 #### [place] [address] Platelet mean volume (Bld) [Entitic vol] 7.0 fL Normal 6.6-10.5 [facility] Comment on above: Performed By: #### G FR, MG, CMP, 326929, VIDH, A1C, 409811, TSHR, LIPID, FES, FERR #### [place] [address] #### B12 #### [place] [address] RBC 4.39 10 6/mcL Normal 4.10-5.30 [facility] Comment on above: Performed By: #### G FR, MG, CMP, 331567, VIDH, A1C, 296768, TSHR, LIPID, FES, FERR #### [place] [address] #### B12 #### [place] [address] WBC 4.8 10 3/mcL Normal 4.5-10.8 [facility] Comment on above: Performed By: #### G FR, MG, CMP, 933682, VIDH, A1C, 802059, TSHR, LIPID, FES, FERR #### [place] [address] #### B12 #### [place] [address] CVFLURVon 12-05-2024 FLU A PCR Positive Abnormal Negative [facility] Comment on above: Performed By: #### C VFLURV #### [place] [address] FLU B PCR Negative Normal Negative [facility] Comment on above: Performed By: #### C VFLURV #### [place] [address] RSV PCR Negative Normal Negative [facility] Comment on above: Performed By: #### C VFLURV #### [facility] [address] [place], [place] [address] SARS-CoV-2 (COVID-19) RNA LAURIE+probe Ql (Unsp spec) Negative Normal Negative [facility] Comment on above: Result Comment: Resu lts [...] results. Performed By: #### C VFLURV #### [facility] [address] [place], [place] [address] LABORATORYOrdered By: SYSTEM SYSTEM on 12-05-2024 Troponin I.cardiac DL <= 0.01 ng/mL [Mass/Vol] ng/L Normal 0 - 51 ng/L AO ADM SS Comment on above: Interpretive Data: H igh Sensitive Troponin I Reference Ranges: Female: 0-51 ng/L Male: 0-76 ng/L Testing performed on [employer] using a homogeneous sandwich chemiluminescent immunoassay based on [employer] technology. Basophils (Bld) [#/Vol] 0.0 103/mcL Normal [...] ng/L Male: 0-76 ng/L Testing performed on [employer] using a homogeneous sandwich chemiluminescent immunoassay based on [employer] technology. Urea nitrogen [Mass/Vol] 10 mg/dL Normal [...] B (Bld) [Mass/Vol] 52 pg/mL Normal 0-125 [facility] Comment on above: Result Comment: NT-p roBNP results of less than 300 pg/mL effectively rules out acute congestive heart failure with 99% negative predictive value. Performed By: #### G FR, MG, CMP, 137570, VIDH, A1C, 662124, TSHR, LIPID, FES, FERR #### [place] [address] #### B12 #### [address] 12-05-2024 High Sensitivity Troponin I <4 Normal 0-51 [facility] Comment on above: Result Comment: High Sensitive Troponin I Reference Ranges: Female: 0-51 ng/L Male: 0-76 ng/L Testing performed on [employer] using a homogeneous sandwich chemiluminescent immunoassay based on [employer] technology. Performed By: #### G FR, MG, CMP, 422145, VIDH, A1C, 286631, TSHR, LIPID, FES, FERR #### [place] [address] #### B12 #### [place] [address] High Sensitivity Troponin I 8 ng/L Normal 0-51 [facility] Comment on above: Result Comment: High Sensitive Troponin I Reference Ranges: Female: 0-51 ng/L Male: 0-76 ng/L Testing performed on [employer] using a homogeneous sandwich chemiluminescent immunoassay based on [employer] technology. Performed By: #### G FR, MG, CMP, 866510, VIDH, A1C, 435256, TSHR, LIPID, FES, FERR #### [place] [address] #### B12 #### [facility] [address] [place] [address] XR CHEST 1 VIEWon 12-05-2024 XR CHEST [...] 12/05/2024 10:09:22 PM Ordering Provider: ELISABETH Solano [facility] CBC W Auto Differential pane l (Bld)on 06-08-2023 Basophils (Bld) [#/Vol] 0.04 10*3/uL <0.11 k/uL [facility] Basophils/100 WBC (Bld) 0.4 % [facility] Differential cell count method Nom (Bld) Auto [facility] Eosinophils (Bld) [#/Vol] 0.08 10*3/uL <0.46 k/uL [facility] Eosinophils/100 WBC (Bld) 0.8 % [facility] Erythrocyte distribution width (RBC) [Ratio] 12.8 % 11.5 - 15.0 % [facility] Hematocrit (Bld) [Volume fraction] 40.9 % 36.0 - 46.0 % [facility] Hemoglobin (Bld) [Mass/Vol] 13.2 g/dL 11.5 - 15.5 g/dL [facility] Immature granulocytes (Bld) [#/Vol] <0.10 k/uL [facility] Immature granulocytes/100 WBC (Bld) 0.2 % [facility] Lymphocytes (Bld) [#/Vol] 3.73 10*3/uL 1.00 - 4.00 k/uL [facility] Lymphocytes/100 WBC (Bld) 36.7 % [facility] MCH (RBC) [Entitic mass] 30.8 pg 26.0 - 34.0 pg [facility] MCHC (RBC) [Mass/Vol] 32.3 g/dL 30.5 - 36.0 g/dL [facility] MCV (RBC) [Entitic vol] 95.6 fL 80.0 - 100.0 fL [facility] Monocytes (Bld) [#/Vol] 0.74 10*3/uL <0.87 k/uL [facility] Monocytes/100 WBC (Bld) 7.3 % [facility] Neutrophils (Bld) [#/Vol] 5.56 10*3/uL 1.45 - 7.50 k/uL [facility] Neutrophils/100 WBC (Bld) 54.6 % [facility] Nucleated RBC (Bld) [#/Vol] <0.01 k/uL [facility] Nucleated RBC/100 WBC (Bld) [Ratio] 0.0 /100 WBC [facility] Platelet mean volume (Bld) [Entitic vol] 10.2 fL 9.0 - 12.7 fL [facility] Platelets (Bld) [#/Vol] 370 10*3/uL 150 - 400 k/uL [facility] RBC (Bld) [#/Vol] 4.28 10*6/uL 3.90 - 5.2 0 m/uL [facility] WBC (Bld) [#/Vol] 10.17 10*3/uL 3.70 - 11 .00 k/uL [facility] CNPNon 06-08-2023 CNPN Telephone (FAMPWS) JEIMY HENRIQUEZ ([id number]) 1965 F Date Time Provider Department 06/08/23 [...] Hallucinations Date Reviewed: 06/07/2023 Reviewed by: Maru Cerda MA - Fully Assessed Reason for Visit: Results [95] Prescriptions as of 06/09/2023 - albuterol HFA (PROVENTIL HFA, VENTOLIN HFA) 90 mcg/actuation inhaler Inhale 2 Puffs as instructed every 6 hours as needed. Problem List As Of Date 06/08/2023 Noted Resolved Depression [F32.A] Fibromyalgia [M79.7] 09/18/2015 Abnormal mammogram [R92.8] 05/17/2016 Encounter Status:Closed by Maggie GUERRERO RN on 06/09/23 Normal [facility] metabolic 2000 panelon 06-08-2023 Albumin [Mass/Vol] 4.1 g/dL 3.9 - 4.9 g/dL [facility] ALP [Catalytic activity/Vol] 96 U/L 34 - 123 U/L [facility] ALT [Catalytic activity/Vol] 29 U/L 7 - 38 U/L [facility] Anion gap [Moles/Vol] 9 mmol/L 9 - 18 mmol/L [facility] AST [Catalytic activity/Vol] 31 U/L 13 - 35 U/L [facility] Bilirubin [Mass/Vol] 0.6 mg/dL 0.2 - 1 .3 mg/dL [facility] Calcium [Mass/Vol] 9.5 mg/dL 8.5 - 10. 2 mg/dL [facility] Chloride [Moles/Vol] 101 mmol/L 97 - 10 5 mmol/L [facility] CO2 [Moles/Vol] 28 mmol/L 22 - 30 mmol/L [facility] Creatinine [Mass/Vol] 0.97 mg/dL High 0.58 - 0.96 mg/dL [facility] Estimated Glomerular Filtration Rate 69 mL/min/1.73m >=60 mL/min/1.73m [facility] Glucose [Mass/Vol] 73 mg/dL Low 74 - 99 mg/dL [facility] Potassium [Moles/Vol] 4.1 mmol/L 3.7 - 5.1 mmol/L [facility] Protein [Mass/Vol] 8.2 g/dL High 6.3 - 8.0 g/dL [facility] Sodium [Moles/Vol] 138 mmol/L 136 - 144 mmol/L [facility] Urea nitrogen [Mass/Vol] 13 mg/dL 7 - 21 mg/dL [facility] LIPID PANEL, NONFASTINGon Cholesterol [Mass/Vol] 161 mg/dL <200 mg/dL [facility] HDL Cholesterol, Nonfasting 53 mg/dL >39 mg/dL [facility] LDL Cholesterol, Nonfasting 92 mg/dL <100 mg/dL [facility] LDL/HDL Ratio, Nonfasting 1.74 mg/dL <2.54 mg/dL [facility] Non HDL Cholesterol, Nonfasting 108 mg/dL <130 mg/dL [facility] Total Chol/HDL Ratio, Nonfasting 3.04 mg/dL <5.10 mg/dL [facility] Triglycerides, Nonfasting 78 mg/dL <150 mg/dL [facility] VLDL Cholesterol, Nonfasting 16 mg/dL <30 mg/dL [facility] CBC W Auto Differential pane l (Bld)on 06-07-2023 Basophils (Bld) [#/Vol] 0.04 10*3/uL Normal <0.11 [facility] Comment on above: Order Comment: Speci men Type: BLOOD SPECIMEN Ordering Facility: [facility] Address: [address] [place] [address] Performed By: #### 5 7021-8 #### [facility] CLIA [id number] [address] [place] [address] [place] Basophils/100 WBC (Bld) 0.4 % Normal [facility] Comment on above: Order Comment: Speci men Type: BLOOD SPECIMEN Ordering Facility: [facility] Address: [address] [place] [address] Performed By: #### 5 7021-8 #### [facility] CLIA [id number] [address] [place] [address] [place] Differential cell count method Nom (Bld) Auto Normal [facility] Comment on above: Order Comment: Speci men Type: BLOOD SPECIMEN Ordering Facility: [facility] Address: [address] [place] [address] Performed By: #### 5 7021-8 #### [facility] CLIA [id number] [address] [place] [address] [place] Eosinophils (Bld) [#/Vol] 0.08 10*3/uL Normal <0.46 [facility] Comment on above: Order Comment: Speci men Type: BLOOD SPECIMEN Ordering Facility: [facility] Address: [address] Performed By: #### 5 7021-8 #### [facility] CLIA [id number] [address] [place] [address] [place] Eosinophils/100 WBC (Bld) 0.8 % Normal [facility] Comment on above: Order Comment: Speci men Type: BLOOD SPECIMEN Ordering Facility: [facility] Address: [address] [place], [place] [address] Performed By: #### 5 7021-8 #### [facility] CLIA [id number] [address] [place] [address] [place] Erythrocyte distribution width (RBC) [Ratio] 12.8 % Normal 11.5-15.0 [facility] Comment on above: Order Comment: Speci men Type: BLOOD SPECIMEN Ordering Facility: [facility] Address: [address] [place], [place] [address] Performed By: #### 5 7021-8 #### [facility] CLIA [id number] [address] [place] [address] [place] Hematocrit (Bld) [Volume fraction] 40.9 % Normal 36.0-46.0 [facility] Comment on above: Order Comment: Speci men Type: BLOOD SPECIMEN Ordering Facility: [facility] Address: [address] [place], [place] [address] Performed By: #### 5 7021-8 #### [facility] CLIA [id number] [address] [place] [address] [place] Hemoglobin (Bld) [Mass/Vol] 13.2 g/dL Normal 11.5-15.5 [facility] Comment on above: Order Comment: Speci men Type: BLOOD SPECIMEN Ordering Facility: [facility] Address: [address] [place] [id number] Performed By: #### 5 7021-8 #### [facility] CLIA [id number] [address] [place] [address] [place] Immature granulocytes (Bld) [#/Vol] 10*3/uL Normal <0.10 [facility] Comment on above: Order Comment: Speci men Type: BLOOD SPECIMEN Ordering Facility: [facility] Address: [address] [place] [address] Performed By: #### 5 7021-8 #### [facility] CLIA [id number] [address] [place] [address] [place] Immature granulocytes/100 WBC (Bld) 0.2 % Normal [facility] Comment on above: Order Comment: Speci men Type: BLOOD SPECIMEN Ordering Facility: [facility] Address: [address] [place] [address] Performed By: #### 5 7021-8 #### [facility] CLIA [id number] [address] [place] [address] [place] Lymphocytes (Bld) [#/Vol] 3.73 10*3/uL Normal 1.00-4.00 [facility] Comment on above: Order Comment: Speci men Type: BLOOD SPECIMEN Ordering Facility: [facility] Address: [address] [place] [address] Performed By: #### 5 7021-8 #### [facility] CLIA [id number] [address] [place] [address] [place] Lymphocytes/100 WBC (Bld) 36.7 % Normal [facility] Comment on above: Order Comment: Speci men Type: BLOOD SPECIMEN Ordering Facility: [facility] Address: [address] [place], [place] [address] Performed By: #### 5 7021-8 #### [facility] CLIA [id number] [address] [place] [address] [place] MCH (RBC) [Entitic mass] 30.8 pg Normal 26.0-34.0 [facility] Comment on above: Order Comment: Speci men Type: BLOOD SPECIMEN Ordering Facility: [facility] Address: [address] [place], [place] [address] Performed By: #### 5 7021-8 #### [facility] CLIA [id number] [address] [place] [address] [place] MCHC (RBC) [Mass/Vol] 32.3 g/dL Normal 30.5-36.0 [facility] Comment on above: Order Comment: Speci men Type: BLOOD SPECIMEN Ordering Facility: [facility] Address: [address] Performed By: #### 5 7021-8 #### [facility] CLIA [id number] [address] [place] [address] [place] MCV (RBC) [Entitic vol] 95.6 fL Normal 80.0-100.0 [facility] Comment on above: Order Comment: Speci men Type: BLOOD SPECIMEN Ordering Facility: [facility] Address: [address] Performed By: #### 5 7021-8 #### [facility] CLIA [id number] [address] [place] [address] [place] Monocytes (Bld) [#/Vol] 0.74 10*3/uL Normal <0.87 [facility] Comment on above: Order Comment: Speci men Type: BLOOD SPECIMEN Ordering Facility: [facility] Address: [address] Performed By: #### 5 7021-8 #### [facility] CLIA [id number] [address] [place] [address] [place] Monocytes/100 WBC (Bld) 7.3 % Normal [facility] Comment on above: Order Comment: Speci men Type: BLOOD SPECIMEN Ordering Facility: [facility] Address: [address] Performed By: #### 5 7021-8 #### [facility] CLIA [id number] [address] [place] [address] [place] Neutrophils (Bld) [#/Vol] 5.56 10*3/uL Normal 1.45-7.50 [facility] Comment on above: Order Comment: Speci men Type: BLOOD SPECIMEN Ordering Facility: [facility] Address: [address] Performed By: #### 5 7021-8 #### [facility] CLIA [id number] [address] [place] [address] [place] Neutrophils/100 WBC (Bld) 54.6 % Normal [facility] Comment on above: Order Comment: Speci men Type: BLOOD SPECIMEN Ordering Facility: [facility] Address: [address] [place], [place] [address] Performed By: #### 5 7021-8 #### [facility] CLIA [id number] [address] [place] [address] [place] Nucleated RBC (Bld) [#/Vol] 10*3/uL Normal <0.01 [facility] Comment on above: Order Comment: Speci men Type: BLOOD SPECIMEN Ordering Facility: [facility] Address: [address] [place], [place] [address] Performed By: #### 5 7021-8 #### [facility] CLIA [id number] [address] [place] [address] [place] Nucleated RBC/100 WBC (Bld) [Ratio] 0.0 /100 WBC Normal [facility] Comment on above: Order Comment: Speci men Type: BLOOD SPECIMEN Ordering Facility: [facility] Address: [address] [place], [place] [address] Performed By: #### 5 7021-8 #### [facility] CLIA [id number] [address] [place] [address] [place] Platelet mean volume (Bld) [Entitic vol] 10.2 fL Normal 9.0-12.7 [facility] Comment on above: Order Comment: Speci men Type: BLOOD SPECIMEN Ordering Facility: [facility] Address: [address] [place], [place] [address] Performed By: #### 5 7021-8 #### [facility] CLIA [id number] [address] [place] [address] [place] Platelets (Bld) [#/Vol] 370 10*3/uL Normal 150-400 [facility] Comment on above: Order Comment: Speci men Type: BLOOD SPECIMEN Ordering Facility: [facility] Address: [address] [place] [address] Performed By: #### 5 7021-8 #### [facility] CLIA [id number] [address] [place] [address] [place] RBC (Bld) [#/Vol] 4.28 10*6/uL Normal 3.90-5.20 [facility] Comment on above: Order Comment: Speci men Type: BLOOD SPECIMEN Ordering Facility: [facility] Address: [address] [place] [address] Performed By: #### 5 7021-8 #### [facility] CLIA [id number] [facility] [place] [address] [place] WBC (Bld) [#/Vol] 10.17 10*3/uL Normal 3.70-11.00 [facility] Comment on above: Order Comment: Speci men Type: BLOOD SPECIMEN Ordering Facility: [facility] Address: [address] [place] [address] Performed By: #### 5 7021-8 #### [facility] CLIA [id number] [address] [place] [address] [place] CNOVon 06-07-2023 CNOV Office Visit (FAMPWS ) JEIMY HENRIQUEZ ([id number]) 1965 F Date Time Provider Department 06/07/23 [...] Father CHF Hypertension Father Heart Maternal Grandfather MS Cancer Maternal Grandmother brain/ breast Patient Allergies [...] SCREEN due (more content not included)... Normal [facility] Comprehensive metabolic 2000 panelon 06-07-2023 Albumin [Mass/Vol] 4.1 g/dL Normal 3.9-4.9 [facility] Comment on above: Order Comment: Speci men Type: BLOOD SPECIMEN Ordering Facility: [facility] Address: [address] [place] [address] Performed By: #### 2 4323-8, LIPNF #### [facility] CLIA [id number] [address] [place] [address] [place] ALP [Catalytic activity/Vol] 96 U/L Normal 34-123 [facility] Comment on above: Order Comment: Speci men Type: BLOOD SPECIMEN Ordering Facility: [facility] Address: [address] [place] [address] Performed By: #### 2 4323-8, LIPNF #### [facility] CLIA [id number] [address] [place] [address] [place] ALT [Catalytic activity/Vol] 29 U/L Normal 7-38 [facility] Comment on above: Order Comment: Speci men Type: BLOOD SPECIMEN Ordering Facility: [facility] Address: [address] Performed By: #### 2 4323-8, LIPNF #### [facility] CLIA [id number] [address] [place] [address] [place] Anion gap [Moles/Vol] 9 mmol/L Normal 9-18 [facility] Comment on above: Order Comment: Speci men Type: BLOOD SPECIMEN Ordering Facility: [facility] Address: [address] Performed By: #### 2 4323-8, LIPNF #### [facility] CLIA [id number] [address] [place] [address] [place] AST [Catalytic activity/Vol] 31 U/L Normal 13-35 [facility] Comment on above: Order Comment: Speci men Type: BLOOD SPECIMEN Ordering Facility: [facility] Address: [address] [place] [address] Performed By: #### 2 4323-8, LIPNF #### [facility] CLIA [id number] [address] [place] [address] [place] Bilirubin [Mass/Vol] 0.6 mg/dL Normal 0.2-1.3 [facility] Comment on above: Order Comment: Speci men Type: BLOOD SPECIMEN Ordering Facility: [facility] Address: [address] [place] [address] Performed By: #### 2 4323-8, LIPNF #### [facility] CLIA [id number] [address] [place] [address] [place] Calcium [Mass/Vol] 9.5 mg/dL Normal 8.5-10.2 [facility] Comment on above: Order Comment: Speci men Type: BLOOD SPECIMEN Ordering Facility: [facility] Address: [address] [address] [place], [place] [id number] Performed By: #### 2 4323-8, LIPNF #### [facility] CLIA [id number] [address] [place] [address] [place] Chloride [Moles/Vol] 101 mmol/L Normal 97-105 [facility] Comment on above: Order Comment: Speci men Type: BLOOD SPECIMEN Ordering Facility: [facility] Address: [address] [place], [place] [id number] Performed By: #### 2 4323-8, LIPNF #### [facility] CLIA [id number] [address] [place] [address] [place] CO2 [Moles/Vol] 28 mmol/L Normal 22-30 [facility] Comment on above: Order Comment: Speci men Type: BLOOD SPECIMEN Ordering Facility: [facility] Address: [address] [address] Performed By: #### 2 4323-8, LIPNF #### [facility] CLIA [id number] [address] [place] [address] [place] Creatinine [Mass/Vol] 0.97 mg/dL High 0.58-0.96 [facility] Comment on above: Order Comment: Jana men Type: BLOOD SPECIMEN Ordering Facility: [facility] Address: [address] [address] Performed By: #### 2 4323-8, LIPNF #### [facility] CLIA [id number] [address] [place] [address] [place] ESTIMATED GLOMERULAR FILTRATION RATE 69 mL/min/1.73m??? Normal >=60 [facility] Comment on above: Order Comment: Jana men Type: BLOOD SPECIMEN Ordering Facility: [facility] Address: [address] [place] [address] Result Comment: Bethany mated Glomerular Filtration Rate [...] Performed By: #### 2 4323-8, LIPNF #### [facility] CLIA [id number] [address] [place] [address] [place] Glucose [Mass/Vol] 73 mg/dL Low 74-99 [facility] Comment on above: Order Comment: Jana dewey Type: BLOOD SPECIMEN Ordering Facility: [facility] Address: [address] [place] [address] Result Comment: The [place] Diabetes Association (ADA) provides guidance for cutoff [...] Standards of Medical Care in Diabetes 2016, [place] Diabetes Association. Diabetes Care. 2016.39(Suppl 1). Performed By: #### 2 4323-8, LIPNF #### [facility] CLIA [id number] [address] [place] [address] [place] Potassium [Moles/Vol] 4.1 mmol/L Normal 3.7-5.1 [facility] Comment on above: Order Comment: Speci men Type: BLOOD SPECIMEN Ordering Facility: [facility] Address: [address] [address] Performed By: #### 2 4323-8, LIPNF #### [facility] CLIA [id number] [address] [place] [address] [place] Protein [Mass/Vol] 8.2 g/dL High 6.3-8.0 [facility] Comment on above: Order Comment: Speci men Type: BLOOD SPECIMEN Ordering Facility: [facility] Address: [address] [address] Performed By: #### 2 4323-8, LIPNF #### [facility] CLIA [id number] [address] [place] [address] [place] Sodium [Moles/Vol] 138 mmol/L Normal 136-144 [facility] Comment on above: Order Comment: Speci men Type: BLOOD SPECIMEN Ordering Facility: [facility] Address: [address] [address] Performed By: #### 2 4323-8, LIPNF #### [facility] CLIA [id number] [address] [place] [address] [place] Urea nitrogen [Mass/Vol] 13 mg/dL Normal 7-21 [facility] Comment on above: Order Comment: Jana dewey Type: BLOOD SPECIMEN Ordering Facility: [facility] Address: [address] [place] [address] Performed By: #### 2 4323-8, LIPNF #### [facility] CLIA [id number] [address] [place] [address] [place] HbA1c (Bld)on 06-07-2023 Average glucose Estimated from glycated hemoglobin (Bld) [Mass/Vol] 120 mg/dL Normal [facility] Comment on above: Order Comment: Jana dewey Type: BLOOD SPECIMEN Ordering Facility: [facility] Address: [address] [place] [address] Result Comment: eAG: (Estimated average glucose) is a calculated value from HgbA1c and is financial representative of the average blood glucose level in the last 2-3 month period. Performed By: #### 5 5454-3 #### [facility] CLIA [id number] [address] [place] [address] [place] HbA1c (Bld) [Mass fraction] 5.8 % High 4.3-5.6 [facility] Comment on above: Order Comment: Jana dewey Type: BLOOD SPECIMEN Ordering Facility: [facility] Address: [address] [place] [address] Result Comment: Amer [place] Diabetes Association guidelines indicate that patients with HgbA1c in the range 5.7-6.4% are at increased risk for development of diabetes, and intervention by lifestyle modification may be beneficial. HgbA1c greater or equal to 6.5% is considered diagnostic of diabetes. Performed By: #### 5 5454-3 #### [facility] CLIA [id number] [address] [place] [address] [place] LIPID PANEL, NONFASTINGon Cholesterol [Mass/Vol] 161 mg/dL Normal <200 [facility] Comment on above: Order Comment: Speci men Type: BLOOD SPECIMEN Ordering Facility: [facility] Address: [address] [address] Result Comment: <200 mg/dL, Desirable 200-239 mg/dL, Borderline high >239 mg/dL, High Performed By: #### 2 4323-8, LIPNF #### [facility] CLIA [id number] [address] HDL CHOLESTEROL, NF 53 mg/dL Normal >39 [facility] Comment on above: Order Comment: Speci men Type: BLOOD SPECIMEN Ordering Facility: [facility] Address: [address] [place] [address] Result Comment: 40-5 9 mg/dL, Acceptable >59 mg/dL, High: Negative risk factor for coronary heart disease <40 mg/dL, Low: Positive risk factor for coronary heart disease Performed By: #### 2 4323-8, LIPNF #### [facility] CLIA [id number] [address] OF [facility] LDL CHOLESTEROL, NF 92 mg/dL Normal <100 [facility] Comment on above: Order Comment: Prasannai men Type: BLOOD SPECIMEN Ordering Facility: [facility] Address: [address] [place] [address] Result Comment: <100 mg/dL, Optimal 100-129 mg/dL, Near optimal/above optimal 130-159 mg/dL, Borderline high 160-189 mg/dL, High >189 mg/dL, Very high Secondary prevention optimal LDL Cholesterol levels are recommended to be < 70 mg/dL Performed By: #### 2 4323-8, LIPNF #### [facility] CLIA [id number] [address] OF [facility] LDL/HDL RATIO, NF 1.74 mg/dL Normal <2.54 [facility] Comment on above: Order Comment: Speci men Type: BLOOD SPECIMEN Ordering Facility: [facility] Address: [address] [place] [address] Result Comment: Refe rence: 1. National Cholesterol Education Program ATP III Guideline At-A-Glance Quick Desk Reference: National Heart, Lung, and Blood Davis. National Institutes of Health. 2001: NIH Publication No. 01-3305. 2. An International Atherosclerosis Society position paper: global recommendations for the management of dyslipidemia: executive summary, Atherosclerosis. 2014: 232(2):410-413. Performed By: #### 2 4323-8, LIPNF #### [facility] CLIA [id number] [address] [facility] [address] OF [facility] NON HDL CHOL, NF 108 mg/dL Normal <130 [facility] Comment on above: Order Comment: Jana dewey Type: BLOOD SPECIMEN Ordering Facility: [facility] Address: [address] [place] [address] Result Comment: <130 mg/dL, Optimal 130-159 mg/dL, Near optimal/above optimal 160-189 mg/dL, Borderline high 190-219 mg/dL, High >219 mg/dL, Very high Secondary prevention optimal non HDL Cholesterol levels are recommended to be <100 mg/dL Performed By: #### 2 4323-8, LIPNF #### [facility] CLIA [id number] [address] OF [facility] T CHOL/HDL RATIO NF 3.04 mg/dL Normal <5.10 [facility] Comment on above: Order Comment: Jana dewey Type: BLOOD SPECIMEN Ordering Facility: [facility] Address: [address] [place] [address] Performed By: #### 2 4323-8, LIPNF #### [facility] CLIA [id number] [address] [place] [address] [facility] [place] TRIGLYCERIDES, NF 78 mg/dL Normal <150 [facility] Comment on above: Order Comment: Jana dewey Type: BLOOD SPECIMEN Ordering Facility: [facility] Address: [address] [place] [address] Result Comment: <150 mg/dL, Normal 150-199 mg/dL, Borderline high 200-499 mg/dL, High >499 mg/dL, Very high Performed By: #### 2 4323-8, LIPNF #### [facility] CLIA [id number] [address] [place] [address] [place] VLDL CHOLESTEROL, NF 16 mg/dL Normal <30 [facility] Comment on above: Order Comment: Speci men Type: BLOOD SPECIMEN Ordering Facility: [facility] Address: [address] [place] [address] Performed By: #### 2 4323-8, LIPNF #### [facility] CLIA [id number] [address] [facility] [address] [place] No Panel Informationon 08-10 Please click on the link to view the study images Normal -[facility] 205 DO Work Phone: Mamm - Screening Mammogram w / Tomosynthesison 08-04-2022 MG Breast Screening Normal -[facility] 205 DO Work Phone: JAY TITER/ESAU PANELon 2021 ANTI-CENTROMERE <0.2 Normal [facility] Comment on above: Result Comment: REF VALUES < 1.0 = NEGATIVE >=1.0 = POSITIVE Performed By: #### E NAP2 #### [facility] [address] [facility] [place] [address] ANTI-CHROMATIN <0.2 Normal [facility] Comment on above: Result Comment: REF VALUES < 1.0 = NEGATIVE >=1.0 = POSITIVE Performed By: #### E NAP2 #### [facility] [address] [facility] [place] [address] ANTI-DNA [DS] <1.0 Normal [facility] [place] Comment on above: Result Comment: REF VALUES NEGATIVE: <= 4 IU/ML EQUIVOCAL: 5- 9 IU/ML POSITIVE: >=10 IU/ML Performed By: #### E NAP2 #### [facility] [address] [facility] [place] [address] ANTI-KASSY-1 <0.2 Normal [facility] Comment on above: Result Comment: REF VALUES < 1.0 = NEGATIVE >=1.0 = POSITIVE Performed By: #### E NAP2 #### [facility] [address] [place] [address] ANTI-RIBOSOMAL P <0.2 Normal [facility] Comment on above: Result Comment: REF VALUES < 1.0 = NEGATIVE >=1.0 = POSITIVE Performed By: #### E NAP2 #### [facility] [address] [place] [address] ANTI-PARISH VISITOR 0.2 AI Normal [facility] Comment on above: Result Comment: REF VALUES < 1.0 = NEGATIVE >=1.0 = POSITIVE Performed By: #### E NAP2 #### [facility] [address] [place] [address] ANTI-SCL-70 <0.2 Normal [facility] Comment on above: Result Comment: REF VALUES < 1.0 = NEGATIVE >=1.0 = POSITIVE Performed By: #### E NAP2 #### [facility] [address] [place] [address] ANTI-SM <0.2 Normal [facility] Comment on above: Result Comment: REF VALUES < 1.0 = NEGATIVE >=1.0 = POSITIVE Performed By: #### E NAP2 #### [facility] [address] [place] [address] ANTI-SM/PARISH VISITOR <0.2 Normal [facility] Comment on above: Result Comment: REF VALUES < 1.0 = NEGATIVE >=1.0 = POSITIVE Performed By: #### E NAP2 #### [facility] [address] [place] [address] ANTI-SSA <0.2 Normal [facility] Comment on above: Result Comment: REF VALUES < 1.0 = NEGATIVE >=1.0 = POSITIVE Performed By: #### E NAP2 #### [facility] [address] [place] [address] ANTI-SSB <0.2 Normal [facility] Comment on above: Result Comment: REF VALUES < 1.0 = NEGATIVE >=1.0 = POSITIVE Performed By: #### E NAP2 #### [facility] [address] [place] [address] JAY PATTERN NUCLEOLAR Normal [facility] Comment on above: Performed By: #### E NAP2 #### [facility] [address] [place] [address] JAY TITER 1:40 Normal [facility] Comment on above: Performed By: #### E NAP2 #### [facility] [address] [place] [address] JAY-WITH REFLEX TO ENAon JAY WITH REFLEX TO ESAU Positive Abnormal NEGATIVE [facility] Comment on above: Result Comment: The Antinuclear Antibody (JAY) test was performed using indirect immunofluorescence assay with HEp-2 cells slide. Performed By: #### A NA2 #### [facility] [address] [place] [address] GC + CHLAMYDIA BY AMPLIFIED DETECTIONon 07-22-2022 CHLAMYDIA TRACH.,AMPLIFIED Negative Normal Negative [facility] Comment on above: Result Comment: The APTIMA Combo 2 assay is FDA-approved for Chlamydia trachomatis and Neisseria gonorrhoeae testing on female endocervical and vaginal swabs, ThinPrep liquid pap samples, male urine samples and urethral swabs. Performance characteristics for Chlamydia trachomatis and Neisseria gonorrhoeae testing on specific xzk-XMI-bbjxkorh sample types (female urine samples) have been validated by [facility]. This laboratory is certified by CLIA to perform high complexity testing. Samples from all other sites are not validated for this method. Performed By: #### G CCHA #### [facility] [address] [place] [address] N.GONORRHEA,AMPLIFIED Negative Normal Negative [facility] Comment on above: Result Comment: The APTIMA Combo 2 assay is FDA-approved for Chlamydia trachomatis and Neisseria gonorrhoeae testing on female endocervical and vaginal swabs, ThinPrep liquid pap samples, male urine samples and urethral swabs. Performance characteristics for Chlamydia trachomatis and Neisseria gonorrhoeae testing on specific ddg-LCR-lmbkfahu sample types (female urine samples) have been validated by [facility]. This laboratory is certified by CLIA to perform high complexity testing. Samples from all other sites are not validated for this method. Performed By: #### [facility] #### [facility] [address] [place] [address] C Reactive Protein, Serumon 07-21-2022 CRP [Mass/Vol] 1.60 mg/dL Abnormal -[facility] 205 DO Work Phone: Comment on above: REF VALUE< 1.00 C-REACTIVE PROTEINon 022 C-REACTIVE PROTEIN 1.60 mg/dL Abnormal [facility] Comment on above: Result Comment: REF VALUE < 1.00 Performed By: #### C RP #### [address] [address] CBC AND DIFFERENTIALon 07-21 Basophils (Bld) [#/Vol] 0.00 10*3/uL Normal 0.00 - 0.10 [facility] Comment on above: Performed By: #### C BCDF #### [address] [address] Basophils/100 WBC (Bld) 0.4 % Normal 0.0 - 2.0 [facility] Comment on above: Performed By: #### C BCDF #### [address] [address] Eosinophils (Bld) [#/Vol] 0.10 10*3/uL Normal 0.00 - 0.70 [facility] Comment on above: Performed By: #### C BCDF #### [address] [address] Eosinophils/100 WBC (Bld) 0.7 % Normal 0.0 - 6.0 [facility] Comment on above: Performed By: #### C BCDF #### [address] [address] Erythrocyte distribution width (RBC) [Ratio] 13.4 % Normal 11.5 - 14.5 [facility] Comment on above: Performed By: #### C BCDF #### [address] [address] Hematocrit (Bld) [Volume fraction] 42.0 % Normal 36.0 - 46.0 [facility] Comment on above: Performed By: #### C BCDF #### [address] [address] Hemoglobin (Bld) [Mass/Vol] 13.7 g/dL Normal 12.0 - 16.0 [facility] Comment on above: Performed By: #### C BCDF #### [address] [address] Lymphocytes (Bld) [#/Vol] 2.80 10*3/uL Normal 1.20 - 4.80 [facility] Comment on above: Performed By: #### C BCDF #### [address] [address] Lymphocytes/100 WBC (Bld) 36.0 % Normal 13.0 - 44.0 [facility] Comment on above: Performed By: #### C BCDF #### [address] [address] MCHC (RBC) [Mass/Vol] 32.7 g/dL Normal 32.0 - 36.0 [facility] Comment on above: Performed By: #### C BCDF #### [address] [address] MCV (RBC) [Entitic vol] 92 fL Normal 80 - 100 [facility] Comment on above: Performed By: #### C BCDF #### [address] [address] Monocytes (Bld) [#/Vol] 0.40 10*3/uL Normal 0.10 - 1.00 [facility] Comment on above: Performed By: #### C BCDF #### [address] [address] Monocytes/100 WBC (Bld) 5.7 % Normal 2.0 - 10.0 [facility] Comment on above: Performed By: #### C BCDF #### [address] [address] Neutrophils (Bld) [#/Vol] 4.50 10*3/uL Normal 1.20 - 7.70 [facility] Comment on above: Result Comment: Perc ent differential counts (%) should be interpreted in the context of the absolute cell counts (cells/L). Performed By: #### C BCDF #### [address] [address] Neutrophils/100 WBC (Bld) 57.2 % Normal 40.0 - 80.0 [facility] Comment on above: Performed By: #### C BCDF #### [address] [address] Platelets (Bld) [#/Vol] 393 10*3/uL Normal 150 - 450 [facility] Comment on above: Performed By: #### C BCDF #### [address] [address] RBC 4.56 x10E12/L Normal 4.00 - 5.20 [facility] Comment on above: Performed By: #### C BCDF #### [address] [address] WBC (Bld) [#/Vol] 7.9 10*3/uL Normal 4.4 - 11.3 [facility] Comment on above: Performed By: #### C BCDF #### [address] [address] Complete Blood Count + Diffe rentialon 07-21-2022 Basophils/100 WBC (Bld) 0.4 % 0.0 - 2.0 formerly [facility] 205 DO Work Phone: Erythrocyte distribution width (RBC) [Ratio] 13.4 % See Below formerly [facility] 205 DO Work Phone: Comment on above: Reference Range: 11. 5 - 14.5 Hematocrit (Bld) [Volume fraction] 42.0 % See Below formerly [facility] 205 DO Work Phone: Comment on above: Reference Range: 36. 0 - 46.0 Hemoglobin (Bld) [Mass/Vol] 13.7 g/dL See Below formerly [facility] 205 DO Work Phone: Comment on above: Reference Range: 12. 0 - 16.0 Lymphocytes/100 WBC (Bld) 36.0 % See Below [facility] 205 DO Work Phone: Comment on above: Reference Range: 13. 0 - 44.0 MCHC (RBC) [Mass/Vol] 32.7 g/dL See Below [facility] 205 DO Work Phone: Comment on above: Reference Range: 32. 0 - 36.0 MCV (RBC) [Entitic vol] 92 fL 80 - 100 [facility] 205 DO Work Phone: Monocytes/100 WBC (Bld) 5.7 % 2.0 - 10.0 [facility] 205 DO Work Phone: Neutrophils/100 WBC (Bld) 57.2 % See Below [facility] 205 DO Work Phone: Comment on above: Reference Range: 40. 0 - 80.0 Platelets (Bld) [#/Vol] 393 10*3/uL 150 - 450 [facility] 205 DO Work Phone: RBC (Bld) [#/Vol] 4.56 {x10E12/L} See Below [facility] 205 DO Work Phone: Comment on above: Reference Range: 4.0 0 - 5.20 WBC (Bld) [#/Vol] 7.9 10*3/uL 4.4 - 11.3 [facility] 205 DO Work Phone: Complete Blood Count + Differential 0.00 {x10E9/L} See Below [facility] 205 DO Work Phone: Comment on above: Reference Range: 0.0 0 - 0.10 Complete Blood Count + Differential 0.10 {x10E9/L} See Below [facility] 205 DO Work Phone: Comment on above: Reference Range: 0.0 0 - 0.70 Complete Blood Count + Differential 0.40 {x10E9/L} See Below [facility] 205 DO Work Phone: Comment on above: Reference Range: 0.1 0 - 1.00 Complete Blood Count + Differential 2.80 {x10E9/L} See Below [facility] 205 DO Work Phone: Comment on above: Reference Range: 1.2 0 - 4.80 Complete Blood Count + Differential 4.50 {x10E9/L} See Below [place] [address] DO Work Phone: Comment on above: Reference Range: 1.2 0 - 7.70 Percent differential counts (%) should be interpreted in the context of the absolute cell counts (cells/L). Complete Blood Count + Differential 0.7 % 0.0 - 6.0 formerly [facility] 205 DO Work Phone: GC + CHLAMYDIA BY AMPLIFIED DETECTIONon 07-21-2022 Lab Specimen Source Urine Normal [facility] Comment on above: Performed By: #### G [facility] #### [facility] [address] [facility] [place] [address] GC + Chlamydia By Amplified Detectionon 07-21-2022 C. trachomatis rRNA LAURIE+probe Ql (Unsp spec) Negative Negative [place] [address] DO Work Phone: Comment on above: The APTIMA Combo 2 a ssay is FDA-approved for Chlamydia trachomatis and Neisseria gonorrhoeae testing on female endocervical and vaginal swabs, ThinPrep liquid pap samples, male urine samples and urethral swabs. Performance characteristics for Chlamydia trachomatis and Neisseria gonorrhoeae testing on specific qxt-LKE-stfwjzjb sample types (female urine samples) have been validated by [facility]. This laboratory is certified by CLIA to perform high complexity testing. Samples from all other sites are not validated for this method. N. gonorrhoeae rRNA LAURIE+probe Ql (Unsp spec) Negative Negative formerly [facility] 205 DO Work Phone: Comment on above: SOURCE: Urine The AP MARIO Combo 2 assay is FDA-approved for Chlamydia trachomatis and Neisseria gonorrhoeae testing on female endocervical and vaginal swabs, ThinPrep liquid pap samples, male urine samples and urethral swabs. Performance characteristics for Chlamydia trachomatis and Neisseria gonorrhoeae testing on specific cnd-QLP-vgqdybee sample types (female urine samples) have been validated by [facility]. This laboratory is certified by CLIA to perform high complexity testing. Samples from all other sites are not validated for this method. HEMOGLOBIN A1Con 07-21-2022 Glucose [Mass/Vol] 123 mg/dL Normal [facility] Comment on above: Performed By: #### H BA1E #### [address] [address] HbA1c (Bld) [Mass fraction] 5.9 % Abnormal [facility] Comment on above: Result Comment: Diag nosis of Diabetes-Adults Non-Diabetic: < or = 5.6% Increased risk for developing diabetes: 5.7-6.4% Diagnostic of diabetes: > or = 6.5% . Monitoring of Diabetes Age (y) Therapeutic Goal (%) Adults: >18 <7.0 Pediatrics: 13-18 <7.5 7-12 <8.0 0- 6 7.5-8.5 [place] [employer]. Diabetes Care 33(S1), Nov 2009. Performed By: #### H BA1E #### [address] [address] [address] Hemoglobin A1Con 07-21-2022 Glucose [Mass/Vol] 123 mg/dL [facility] 205 DO Work Phone: HbA1c (Bld) [Mass fraction] 5.9 % Abnormal formerly [facility] 205 DO Work Phone: Comment on above: Diagnosis of Diabete s-Adults Non-Diabetic: < or = 5.6% Increased risk for developing diabetes: 5.7-6.4% Diagnostic of diabetes: > or = 6.5%. Monitoring of Diabetes Age (y) Therapeutic Goal (%) Adults: >18 <7.0 Pediatrics: 13-18 <7.5 7-12 <8.0 0- 6 7.5-8.5 [employer]. Diabetes Care 33(S1), Nov 2009. LIPID PANEL (CORONARY RISK 2 )on 07-21-2022 Cholesterol [Mass/Vol] 195 mg/dL Normal 0 - 199 [facility] Comment on above: Result Comment: . AGE [...] dosing. Performed By: #### L IPID #### [address] [address] Cholesterol in HDL [Mass/Vol] 51.0 mg/dL Normal [facility] Comment on above: Result Comment: . AGE VERY LOW LOW NORMAL HIGH 0-19 Y < 35 < 40 40-45 ---- 20-24 Y ---- < 40 >45 ---- >24 Y ---- < 40 40-60 >60 . Performed By: #### L IPID #### [address] [address] Cholesterol in LDL [Mass/Vol] 127 mg/dL High 0 - 99 [facility] Comment on above: Result Comment: . NEAR BORD AGE DESIRABLE OPTIMAL HIGH HIGH VERY HIGH 0-19 Y 0 - 109 --- 110-129 >/= 130 ---- 20-24 Y 0 - 119 --- 120-159 >/= 160 ---- >24 Y 0 - 99 100-129 130-159 160-189 >/=190 . Performed By: #### L IPID #### [address] [address] Cholesterol in VLDL [Mass/Vol] 17 mg/dL Normal 0 - 40 [facility] Comment on above: Performed By: #### L IPID #### [address] [address] Cholesterol.total/Cho lesterol in HDL [Mass ratio] 3.8 {ratio} Normal [facility] Comment on above: Result Comment: REF VALUES DESIRABLE < 3.4 HIGH RISK > 5.0 Performed By: #### L IPID #### [address] [address] Triglyceride [Mass/Vol] 84 mg/dL Normal 0 - 149 [facility] Comment on above: Result Comment: . AGE [...] dosing. Performed By: #### L IPID #### [address] [address] Laboratory - Serology - non- microon 07-21-2022 Centromere protein B Ab Qn (S) <0.2 formerly [facility] 205 DO Work Phone: Comment on above: REF VALUES < 1.0 = N EGATIVE >=1.0 = POSITIVE Chromatin Ab Qn <0.2 [facility] 205 DO Work Phone: Comment on above: REF VALUES < 1.0 = N EGATIVE >=1.0 = POSITIVE DNA double strand Ab Qn (S) [IU]/mL [place] [address] DO Work Phone: Comment on above: REF VALUESNEGATIVE: <= 4 IU/MLEQUIVOCAL: 5- 9 IU/MLPOSITIVE: >=10 IU/ML Kassy-1 extractable nuclear Ab IA Ql (S) <0.2 [place] [address] DO Work Phone: Comment on above: REF VALUES < 1.0 = N EGATIVE >=1.0 = POSITIVE Nuclear Ab Hep2 substrate Ql (S) Positive Abnormal NEGATIVE [place] [address] DO Work Phone: Comment on above: The Antinuclear Anti body (JAY) test was performed using indirect immunofluorescence assay with HEp-2 cells slide. Nuclear Ab IF (S) [Titer] 1:40 [place] [address] DO Work Phone: Nuclear Ab pattern (S) [Interp] NUCLEOLAR [place] [address] DO Work Phone: Ribonucleoprotein extractable nuclear Ab IA Qn (S) 0.2 {AI} [place] [address] DO Work Phone: Comment on above: REF VALUES < 1.0 = N EGATIVE >=1.0 = POSITIVE Ribosomal P Ab Qn (S) <0.2 [place] [address] DO Work Phone: Comment on above: REF VALUES < 1.0 = N EGATIVE >=1.0 = POSITIVE SCL-70 extractable nuclear Ab IA Ql (S) <0.2 [place] [address] DO Work Phone: Comment on above: REF VALUES < 1.0 = N EGATIVE >=1.0 = POSITIVE Sjogrens syndrome-A extractable nuclear Ab IA Qn (S) <0.2 [place] [address] DO Work Phone: Comment on above: REF VALUES < 1.0 = N EGATIVE >=1.0 = POSITIVE Sjogrens syndrome-B extractable nuclear Ab IA Qn (S) <0.2 formerly [facility] DO Work Phone: Comment on above: REF VALUES < 1.0 = N EGATIVE >=1.0 = POSITIVE [place] extractable nuclear Ab IA Qn (S) <0.2 [place] [address] DO Work Phone: Comment on above: REF VALUES < 1.0 = N EGATIVE >=1.0 = POSITIVE [place] extractable nuclear Ab+Ribonucleoprotein extractable nuclear Ab IA Ql (S) <0.2 [place] [address] DO Work Phone: Comment on above: REF VALUES < 1.0 = N EGATIVE >=1.0 = POSITIVE Lipid Panelon 07-21-2022 Cholesterol [Mass/Vol] 195 mg/dL 0 - 199 [place] [address] DO Work Phone: Comment on above: . [...] dosing. Cholesterol in HDL [Mass/Vol] 51.0 mg/dL [place] [address] DO Work Phone: Comment on above: . AGE VERY LOW LOW N ORMAL HIGH 0-19 Y < 35 < 40 40-45 ---- 20- 24 Y ---- < 40 >45 ---- >24 Y ---- < 40 40-60 >60. Cholesterol in LDL [Mass/Vol] 127 mg/dL above high threshold 0 - 99 [facility] DO Work Phone: Comment on above: . NEAR BORD AGE ULISSES RABLE OPTIMAL HIGH HIGH VERY HIGH 0-19 Y 0 - 109 --- 110-129 >/= 130 ---- 20-24 Y 0 - 119 --- 120-159 >/= 160 ---- >24 Y 0 - 99 100-129 130-159 160-189 >/=190. Cholesterol.total/Cho lesterol in HDL [Mass ratio] 3.8 {ratio} [place] [address] DO Work Phone: Comment on above: REF VALUESDESIRABLE < 3.4HIGH RISK > 5.0 Triglyceride [Mass/Vol] 84 mg/dL 0 - 149 [place] [address] DO Work Phone: Comment on above: . [...] Lipid Panel 17 mg/dL 0 - 40 [place] [address] DO Work Phone: RHEUMATOID FACTORon 07-21-20 22 RHEUMATOID FACTOR <10 Normal 0 - 15 [facility] Comment on above: Performed By: #### R F #### [facility] [address] [place] [address] Rheumatoid Factor, Serum or Plasmaon 07-21-2022 Rheumatoid factor Nephelometry Qn (S) <10 0 - 15 formerly [facility] 205 DO Work Phone: SEDIMENTATION RATE, ERYTHROC YTEon 07-21-2022 SEDIMENTATION RATE, ERYTHROCYTE 69 mm/h High 0 - 30 [facility] Comment on above: Performed By: #### E SRWS #### [facility] [address] [place] [address] Sedimentation Rate, Erythroc yteon 07-21-2022 ESR (Bld) [Velocity] 69 mm/h above high threshold 0 - 30 formerly [facility] 205 DO Work Phone: Cult, Urineon 07-20-2022 Bacteria identified Cx Nom (U) formerly [facility] 205 DO Work Phone: IO UA (automated w/o microsc opy)on 07-20-2022 Protein (U) [Mass/Vol] Negative [facility] and Work Phone: IO UA (automated w/o microscopy) Trace [facility] and Work Phone: IO UA (automated w/o microscopy) Negative [facility] and Work Phone: IO UA (automated w/o microscopy) Normal (0.2-1.0 mg/dl) [facility] and Work Phone: IO UA (automated w/o microscopy) 6.0 1 [facility] and Work Phone: IO UA (automated w/o microscopy) Hemolyzed trace Abnormal [facility] and Work Phone: IO UA (automated w/o microscopy) 1.025 1 [facility] and Work Phone: IO UA (automated w/o microscopy) Clear [facility] and Work Phone: IO UA (automated w/o microscopy) Yellow [facility] and Work Phone: Office Visit [...] AND Treat Status: Complete - PT GIVEN [id number] INFO TO SCHEDULE OWN APPT Done: [id number] Class 2 severe obesity due to excess calories with serious comorbidity and body mass index (BMI) of 36.0 to 36.9 in adult HEART HEALTHY DIET - SINCERE; Status:Active; Requested for:[id number]; Dysuria GC + Chlamydia By Amplified Detection; Status:Complete; Done: [id number] 11:30AM IO UA (automated w/o microscopy); Status:Complete; Done: [id number] 03:57PM Elevated glucose Hemoglobin A1C; Status:Complete; Done: [id number] 11:02AM Encounter for screening mammogram for breast cancer Mamm - Screening Mammogram w/ Tomosynthesis; Status:Active; Requested for:[id number]; Radiologist to Determine Optimal Study : Y What are the patient's signs and symptoms ? : Annual Screening Mammogram Frequent UTI Cult, Urine; Status:Complete; Done: 20Jul2022 04:08PM Hepatic steatosis Complete Blood Count + Differential; Status:Complete; Done: [id number] 11:02AM Joint pain JAY-WITH REFLEX TO ESAU; Status:Complete; Done: [id number] 11:02AM C Reactive Protein, Serum; Status:Complete; Done: [...] again. Health maintenance: Mammogram: last one 2018, [facility] Pap:has had a hysterectomy Colonoscopy Done in 04/30/2019 [facility] Labs: Needs updated Social Hx: Tobacco: [...] of Gabrielle (more content not included)... Normal [facility] Tobacco Screening.on 022 Tobacco use status CPHS b) No [facility] and Work Phone: URINE CULTURE,BACTERIALon URINE CULTURE,BACTERIAL PATIENT: JEIMY HENRIQUEZ LOCATION: [facility] BILL#: [id number] : 69 AGE: SEX: F ORDERED BY: TAMIKA BROWN SOURCE: URINE COLLECTED: 07/20/22 16:08 ANTIBIOTICS AT STAN.: RECEIVED : 07/21/22 18:32 SITE: Clean Catch/Voided R E S U L T S URINE CULTURE,BACTERIAL FINAL 07/22/22 11:13 NO SIGNIFICANT GROWTH. Normal [facility] Comment on above: Performed By: #### U [facility] #### [facility] [address] [place] [address] Clinical Event Note-ED Post Discharge Result Follow [...] Post-Discharge Culture Follow Up Team, please contact [phone]. Rupal Portillo, PharmD PGY-1 Resident [facility] Electronic Signatures: Rupal Portillo ([facility]) (Signed 11-Jul-2022 14:11) Authored: Clinical Event Note Last Updated: 11-Jul-2022 14:11 by Rupal Portillo ([facility]) Normal [facility] CBC AND DIFFERENTIALon 07-06 Basophils (Bld) [#/Vol] 0.10 10*3/uL Normal 0.00 - 0.10 [facility] Comment on above: Performed By: #### C BCDF #### [address] [address] Basophils/100 WBC (Bld) 0.7 % Normal 0.0 - 2.0 [facility] Comment on above: Performed By: #### C BCDF #### [address] [address] Eosinophils (Bld) [#/Vol] 0.00 10*3/uL Normal 0.00 - 0.70 [facility] Comment on above: Performed By: #### C BCDF #### [address] [address] Eosinophils/100 WBC (Bld) 0.1 % Normal 0.0 - 6.0 [facility] Comment on above: Performed By: #### C BCDF #### [address] [address] Erythrocyte distribution width (RBC) [Ratio] 13.2 % Normal 11.5 - 14.5 [facility] Comment on above: Performed By: #### C BCDF #### [address] [address] Hematocrit (Bld) [Volume fraction] 40.3 % Normal 36.0 - 46.0 [facility] Comment on above: Performed By: #### C BCDF #### [address] [address] Hemoglobin (Bld) [Mass/Vol] 13.4 g/dL Normal 12.0 - 16.0 [facility] Comment on above: Performed By: #### C BCDF #### [address] [address] Lymphocytes (Bld) [#/Vol] 3.10 10*3/uL Normal 1.20 - 4.80 [facility] Comment on above: Performed By: #### C BCDF #### [address] [address] Lymphocytes/100 WBC (Bld) 24.2 % Normal 13.0 - 44.0 [facility] Comment on above: Performed By: #### C BCDF #### [address] [address] MCHC (RBC) [Mass/Vol] 33.2 g/dL Normal 32.0 - 36.0 [facility] Comment on above: Performed By: #### C BCDF #### [address] [address] MCV (RBC) [Entitic vol] 91 fL Normal 80 - 100 [facility] Comment on above: Performed By: #### C BCDF #### [address] [address] Monocytes (Bld) [#/Vol] 0.80 10*3/uL Normal 0.10 - 1.00 [facility] Comment on above: Performed By: #### C BCDF #### [address] [address] Monocytes/100 WBC (Bld) 6.4 % Normal 2.0 - 10.0 [facility] Comment on above: Performed By: #### C BCDF #### [address] [address] Neutrophils (Bld) [#/Vol] 8.90 10*3/uL High 1.20 - 7.70 [facility] Comment on above: Result Comment: Perc ent differential counts (%) should be interpreted in the context of the absolute cell counts (cells/L). Performed By: #### C BCDF #### [address] [address] Neutrophils/100 WBC (Bld) 68.6 % Normal 40.0 - 80.0 [facility] Comment on above: Performed By: #### C BCDF #### [address] [address] NUCLEATED RBC 0.1 /100 WBC Normal [facility] Comment on above: Performed By: #### C BCDF #### [address] [address] Platelets (Bld) [#/Vol] 369 10*3/uL Normal 150 - 450 [facility] Comment on above: Performed By: #### C BCDF #### [address] [address] RBC 4.44 x10E12/L Normal 4.00 - 5.20 [facility] Comment on above: Performed By: #### C BCDF #### [address] [address] WBC (Bld) [#/Vol] 12.9 10*3/uL High 4.4 - 11.3 [facility] Comment on above: Performed By: #### C BCDF #### [address] [address] COMPREHENSIVE PANELon 2021 Albumin [Mass/Vol] 4.2 g/dL Normal 3.4 - 5.0 [facility] Comment on above: Performed By: #### C MP #### [address] [address] ALP [Catalytic activity/Vol] 97 U/L Normal 33 - 110 [facility] Comment on above: Performed By: #### C MP #### [address] [address] ALT [Catalytic activity/Vol] 23 U/L Normal 7 - 45 [facility] Comment on above: Result Comment: Karen ents treated with Sulfasalazine may generate falsely decreased results for ALT. Performed By: #### C MP #### [address] [address] Anion gap [Moles/Vol] 11 mmol/L Normal 10 - 20 [facility] Comment on above: Performed By: #### C MP #### [address] [address] AST [Catalytic activity/Vol] 21 U/L Normal 9 - 39 [facility] Comment on above: Performed By: #### C MP #### [address] [address] Bilirubin [Mass/Vol] 0.8 mg/dL Normal 0.0 - 1.2 [facility] Comment on above: Performed By: #### C MP #### [address] [address] Calcium [Mass/Vol] 9.0 mg/dL Normal 8.6 - 10.3 [facility] Comment on above: Performed By: #### C MP #### [address] [address] Chloride [Moles/Vol] 103 mmol/L Normal 98 - 107 [facility] Comment on above: Performed By: #### C MP #### [address] [address] Creatinine [Mass/Vol] 0.88 mg/dL Normal 0.50 - 1.05 [facility] Comment on above: Performed By: #### C MP #### [address] [address] GFR/1.73 sq M.predicted among non-blacks MDRD (S/P/Bld) [Vol rate/Area] 77 mL/min/{1.73_m2} Normal >90 [facility] Comment on above: Result Comment: CALC ULATIONS OF ESTIMATED GFR ARE PERFORMED USING THE 2020 CKD-EPI STUDY REFIT EQUATION WITHOUT THE RACE VARIABLE FOR THE IDMS-TRACEABLE CREATININE METHODS. https://jasn.asnjournals.org/content/early//ASN.871805 0858 Performed By: #### C MP #### [address] [address] Glucose [Mass/Vol] 103 mg/dL High 74 - 99 [facility] Comment on above: Performed By: #### C MP #### [address] [address] HCO3 (Bld) [Moles/Vol] 28 mmol/L Normal 21 - 32 [facility] Comment on above: Performed By: #### C MP #### [address] [address] Potassium [Moles/Vol] 3.7 mmol/L Normal 3.5 - 5.3 [facility] Comment on above: Performed By: #### C MP #### [address] [address] Protein [Mass/Vol] 7.6 g/dL Normal 6.4 - 8.2 [facility] Comment on above: Performed By: #### C MP #### [address] [address] Sodium [Moles/Vol] 138 mmol/L Normal 136 - 145 [facility] Comment on above: Performed By: #### C MP #### [address] [address] Urea nitrogen [Mass/Vol] 11 mg/dL Normal 6 - 23 [facility] Comment on above: Performed By: #### C MP #### [address] [address] [address] ABDOMEN AND PELVIS WO CON TRASTon 07-06-2022 CT ABDOMEN AND PELVIS WO CONTRAST STUDY: CT Abdomen and Pelvis without IV Contrast; 07/06/2022, 11:47AM INDICATION: Left flank pain with hematuria. Vaginal irritation for 2-3 days. Additional History: History of rectocele, cystocele. Partial hysterectomy. Cholecystectomy. COMPARISON: None Available. ACCESSION NUMBER(S): [id number] ORDERING CLINICIAN: SARAH SHELTON CNP TECHNIQUE: CT [...] Electronically signed by: WILLY GRANDE MD Normal [facility] CT Abdomen and Pelvis withou t Contraston 07-06-2022 CT Abdomen and Pelvis WO contrast Normal -[place] and Work Phone: Complete Blood Count + Diffe rentialon 07-06-2022 Basophils/100 WBC (Bld) 0.7 % 0.0 - 2.0 [facility] and Work Phone: Erythrocyte distribution width (RBC) [Ratio] 13.2 % See Below [facility] and Work Phone: Comment on above: Reference Range: 11. 5 - 14.5 Hematocrit (Bld) [Volume fraction] 40.3 % See Below [facility] and Work Phone: Comment on above: Reference Range: 36. 0 - 46.0 Hemoglobin (Bld) [Mass/Vol] 13.4 g/dL See Below [facility] and Work Phone: Comment on above: Reference Range: 12. 0 - 16.0 Lymphocytes/100 WBC (Bld) 24.2 % See Below [facility] and Work Phone: Comment on above: Reference Range: 13. 0 - 44.0 MCHC (RBC) [Mass/Vol] 33.2 g/dL See Below [facility] and Work Phone: Comment on above: Reference Range: 32. 0 - 36.0 MCV (RBC) [Entitic vol] 91 fL 80 - 100 [facility] and Work Phone: Monocytes/100 WBC (Bld) 6.4 % 2.0 - 10.0 [facility] and Work Phone: Neutrophils/100 WBC (Bld) 68.6 % See Below [facility] and Work Phone: Comment on above: Reference Range: 40. 0 - 80.0 Platelets (Bld) [#/Vol] 369 10*3/uL 150 - 450 [facility] and Work Phone: RBC (Bld) [#/Vol] 4.44 {x10E12/L} See Below [facility] and Work Phone: Comment on above: Reference Range: 4.0 0 - 5.20 WBC (Bld) [#/Vol] 12.9 10*3/uL above high threshold 4.4 - 11.3 [facility] and Work Phone: Complete Blood Count + Differential 0.10 {x10E9/L} See Below [facility] and Work Phone: Comment on above: Reference Range: 0.0 0 - 0.10 Complete Blood Count + Differential 0.00 {x10E9/L} See Below [facility] and Work Phone: Comment on above: Reference Range: 0.0 0 - 0.70 Complete Blood Count + Differential 0.80 {x10E9/L} See Below [facility] and Work Phone: Comment on above: Reference Range: 0.1 0 - 1.00 Complete Blood Count + Differential 3.10 {x10E9/L} See Below [facility] and Work Phone: Comment on above: Reference Range: 1.2 0 - 4.80 Complete Blood Count + Differential 8.90 {x10E9/L} above high threshold See Below [facility] and Work Phone: Comment on above: Reference Range: 1.2 0 - 7.70 Percent differential counts (%) should be interpreted in the context of the absolute cell counts (cells/L). Complete Blood Count + Differential 0.1 % 0.0 - 6.0 [facility] and Work Phone: Complete Blood Count + Differential 0.1 {/100_WBC} [facility] and Work Phone: Cult, Urineon 07-06-2022 Bacteria identified Cx Nom (U) Abnormal [facility] and Work Phone: Laboratory - Chemistry and C hemistry - challengeon 07-06-2022 Albumin BCP dye [Mass/Vol] 4.2 g/dL 3.4 - 5.0 [facility] and Work Phone: ALP [Catalytic activity/Vol] 97 U/L 33 - 110 [facility] and Work Phone: ALT With P-5'-P [Catalytic activity/Vol] 23 U/L 7 - 45 [facility] and Work Phone: Comment on above: Patients treated wit h Sulfasalazine may generate falsely decreased results for ALT. Anion gap [Moles/Vol] 11 mmol/L 10 - 20 [facility] and Work Phone: AST With P-5'-P [Catalytic activity/Vol] 21 U/L 9 - 39 [facility] and Work Phone: Bilirubin [Mass/Vol] 0.8 mg/dL 0.0 - 1.2 [facility] and Work Phone: Calcium [Mass/Vol] 9.0 mg/dL 8.6 - 10.3 [facility] and Work Phone: Chloride [Moles/Vol] 103 mmol/L 98 - 107 [facility] and Work Phone: CO2 [Moles/Vol] 28 mmol/L 21 - 32 [facility] and Work Phone: Creatinine [Mass/Vol] 0.88 mg/dL See Below [facility] and Work Phone: Comment on above: Reference Range: 0.5 0 - 1.05 Glucose [Mass/Vol] 103 mg/dL above high threshold 74 - 99 [facility] and Work Phone: Potassium [Moles/Vol] 3.7 mmol/L 3.5 - 5.3 [facility] and Work Phone: Protein [Mass/Vol] 7.6 g/dL 6.4 - 8.2 [facility] and Work Phone: Sodium [Moles/Vol] 138 mmol/L 136 - 145 [facility] and Work Phone: Urea nitrogen [Mass/Vol] 11 mg/dL 6 - 23 [facility] and Work Phone: No Panel Informationon 07-06 77 {mL/min/1.73m2} >90 [facility] and Work Phone: Comment on above: CALCULATIONS OF BETH[place] MATED GFR ARE PERFORMED USING THE 2020 CKD-EPI STUDY REFIT EQUATION WITHOUT THE RACE VARIABLE FOR THE IDMS-TRACEABLE CREATININE METHODS.https://jasn.asnjournals.org/content/early// N.7944603021 Provider Note - ED v3on 06-08 Provider [...] Reference Range: STRAW,YELLOW Appearance, Urine HAZY Specific [place], Urine 1.014 pH, Urine 5.0 Protein, Urine [...] SIGNS: T PRBP SpO2O2(LPM) %FiO2 Method 06-Jul-2022 14:27:[id number]/80 97 room air, no respiratory support 06-Jul-2022 12:30:00-7812873/81 96 room air, no respiratory support 06-Jul-2022 11:50:[id number]/1 03 95 room air, no respiratory support [...] yeast infection so she started using Monistat [id number]. Today she noticed hematuria. Nothing taken for pain acuu-uek-hmlnyes. Some nausea, no vomiting. No fevers or [...] focal neurologic (more content not included)... Normal [facility] Triage - EDon 07-06-2022 Triage - ED [...] support. Weight: 171.9 pounds. Calculated 78.0 kg. [place] Coma Scale: Best Eye Response: (E4) spontaneous Best Motor Response: (M6) obeys commands Best Verbal Response: (V5) oriented Yoana Score: 15 Cough lasting greater than 3 weeks: no Allergies: yes Mask applied: yes [employer] History: hysterectomy Patient has homicidal thoughts: no [...] 06-Jul-2022 11:55 by Kati Lee (RN) Normal [facility] UA MICROSCOPICon 07-06-2022 BACTERIA 4+ /HPF Abnormal [facility] Comment on above: Performed By: #### U AMIC #### [place] [address] RBC (U) [#/Vol] /uL Abnormal 0-5 [facility] Comment on above: Performed By: #### U AMIC #### [address] [address] SQUAMOUS EPITH. CELLS 1 /HPF Normal [facility] Comment on above: Performed By: #### U AMIC #### [place] [id number] WBC 90 /HPF Abnormal 0-5 [facility] Comment on above: Performed By: #### U AMIC #### [place] [id number] WBC CLUMPS OCC Normal [facility] Comment on above: Performed By: #### U AMIC #### [place] [id number] URINALYSIS WITH CULTURE IF I NDICATEDon 07-06-2022 Appearance (U) HAZY Normal CLEAR [facility] Comment on above: Performed By: #### U ARFX #### [place] [address] Bilirubin Ql (U) Negative Normal NEGATIVE [facility] Comment on above: Performed By: #### U ARFX #### [place] [address] Color (U) Yellow Normal STRAW,YELLOW [facility] Comment on above: Performed By: #### U [place] #### [place] [address] Glucose Ql (U) Negative Normal NEGATIVE [facility] Comment on above: Performed By: #### U ARFX #### [place] [address] Hemoglobin Ql (U) LARGE(3+) Abnormal NEGATIVE [facility] Comment on above: Performed By: #### U ARFX #### [place] [address] Ketones Ql (U) Negative Normal NEGATIVE [facility] Comment on above: Performed By: #### U ARFX #### [place] [address] Leukocyte esterase Test strip Ql (U) SMALL(1+) Abnormal NEGATIVE [facility] Comment on above: Performed By: #### U AR[place] #### [place] [address] Nitrite Ql (U) Negative Normal NEGATIVE [facility] Comment on above: Performed By: #### U ARFX #### [place] [address] pH (U) 5.0 [pH] Normal 5.0 - 8.0 [facility] Comment on above: Performed By: #### U ARFX #### [place] [address] Protein Ql (U) Negative Normal NEGATIVE [facility] Comment on above: Performed By: #### U ARFX #### [place] [address] Specific gravity (U) [Rel density] 1.014 Normal 1.005 - 1.035 [facility] Comment on above: Performed By: #### U ARFX #### [facility] [address] [place] [address] Urobilinogen (U) [Mass/Vol] mg/dL Normal 0.0 - 1.9 [facility] Comment on above: Performed By: #### U ARFX #### [facility] [facility] [address] [place] [address] Color (U) Yellow See Below -[facility] and Work Phone: Comment on above: Reference Range: STR AW,YELLOW Glucose Ql (U) Negative NEGATIVE [facility] and Work Phone: Ketones Ql (U) Negative NEGATIVE [facility] and Work Phone: Leukocyte esterase Test strip Ql (U) SMALL(1+) Abnormal NEGATIVE -[facility] and Work Phone: pH (U) 5.0 [pH] 5.0 - 8.0 -[facility] and Work Phone: Protein (U) [Mass/Vol] Negative NEGATIVE -[facility] and Work Phone: RBC (U) [#/Vol] LARGE(3+) Abnormal NEGATIVE [facility] Work Phone: Specific gravity (U) [Rel density] 1.014 1 See Below -[facility] Work Phone: Comment on above: Reference Range: 1.0 05 - 1.035 URINALYSIS WITH CULTURE IF INDICATED Negative NEGATIVE [facility] Work Phone: URINALYSIS WITH CULTURE IF INDICATED <2.0 0.0 - 1.9 [facility] and Work Phone: URINALYSIS WITH CULTURE IF INDICATED HAZY CLEAR [facility] and Work Phone: URINE CULTURE,BACTERIALon URINE CULTURE,BACTERIAL PATIENT: JEIMY HENRIQUEZ [facility] [id number] : 69 AGE: SEX: F ORDERED BY: [...] DOSE DEPENDENT NS=NONSUSCEPTIBLE X=REPORTED IN ERROR Normal [facility] Comment on above: Performed By: #### U RINC #### [facility] [address] [place] [address] Urinalysis, Microscopicon Urinalysis, Microscopic 4+ Abnormal [facility] and Work Phone: Urinalysis, Microscopic 1 {/HPF} -[facility] and Work Phone: Urinalysis, Microscopic >182 Abnormal 0-5 [facility] and Work Phone: Urinalysis, Microscopic OCC -[facility] and Work Phone: Urinalysis, Microscopic 90 {/HPF} Abnormal 0-5 [facility] and Work Phone: Urgent Care Visit Reporton 1 12-19-2020 Urgent Care Visit Report [facility] [address] [place] [address] [address] [place] [address] OFFICE VISIT Date of Service: 10/18/21 MR#: [id number] Acct: [id number] Name: JEIMY HENRIQUEZ Rep #: [id number] : 1965 Provider: PRIYA Ugalde Age/Sex: 56/F Location: [facility] Status: Signed Intake Vital Signs 10/18/21 07:30 [...] Ultram] Adverse Reaction (Verified 10/18/21 07:31) Other [facility] Social History (Updated 10/18/21 @ 07:33 [...] Connell Signature: Date (if applicable) CC: Normal [facility] Vital Signs Date Time Vital Sign Value Performing Clinician Faci sj 12-05-2024 23:24-0500 Diastolic Blood Pressure Non-Invasive 60 mm[Hg] ELISABETH VICENTE MD [facility] 12-05-2024 23:24-0500 Heart rate 66 /min ELISABETH VICENTE MD [facility] 12-05-2024 23:24-0500 Respiratory rate 16 /min ELISABETH VICENTE MD [facility] 12-05-2024 23:24-0500 Systolic Blood Pressure Non-Invasive 111 mm[Hg] ELISABETH VICENTE MD [facility] 12-05-2024 17:57-0500 Blood Pressure Location ELISABETH VICENTE MD [facility] 12-05-2024 17:57-0500 Blood Pressure Method ELISABETH VICENTE MD [facility] 12-05-2024 17:57-0500 Body height 152.4 cm ELISABETH VICENTE MD [facility] 12-05-2024 17:57-0500 Body temperature 99.14 [degF] ELISABETH VICENTE MD [facility] 12-05-2024 17:57-0500 Body weight 79.5 kg ELISABETH VICENTE MD [facility] 12-05-2024 17:57-0500 Diastolic Blood Pressure Non-Invasive 86 mm[Hg] ELISABETH VICENTE MD [facility] 12-05-2024 17:57-0500 Heart rate 77 /min ELISABETH VICENTE MD [facility] 12-05-2024 17:57-0500 Respiratory rate 18 /min ELISABETH VICENTE MD [facility] 12-05-2024 17:57-0500 Systolic Blood Pressure Non-Invasive 132 mm[Hg] ELISABETH VICENTE MD [facility] 06-07-2023 15:37-0400 Body height 152.4 cm Haydee Araiza MD Work Phone: [facility] 06-07-2023 15:37-0400 Body weight 84.37 kg Haydee Araiza MD Work Phone: [facility] 06-07-2023 15:37-0400 Diastolic blood pressure 80 mm[Hg] Haydee Araiza MD Work Phone: [facility] 06-07-2023 15:37-0400 Heart rate 76 /min Haydee Araiza MD Work Phone: [facility] 06-07-2023 15:37-0400 Respiratory rate 16 /min Haydee Araiza MD Work Phone: [facility] 06-07-2023 15:37-0400 Systolic blood pressure 116 mm[Hg] Haydee Araiza MD Work Phone: [facility] 07-20-2022 15:48-0400 Body height 152.4 cm Tamika Brown [employer] Work Phone: [facility] Work Phone: 07-20-2022 15:48-0400 Body mass index (BMI) [Ratio] 36.52 kg/m2 Tamika Brown [employer] Work Phone: [facility] Work Phone: 07-20-2022 15:48-0400 Body surface area Derived from formula 1.81 m2 Tamika Brown [employer]ER-[employer] Work Phone: [facility] Work Phone: 07-20-2022 15:48-0400 Body weight 84.82 kg Tamika Brown [employer] Work Phone: [facility] Work Phone: 07-20-2022 15:48-0400 Diastolic blood pressure 78 mm[Hg] Tamika Brown [employer] Work Phone: [facility] Work Phone: 07-20-2022 15:48-0400 Heart rate 65 /min Tamika Brown [employer] Work Phone: [facility] Work Phone: 07-20-2022 15:48-0400 SaO2% (BldA) [Mass fraction] 97 % Tamika Brown [employer] Work Phone: [facility] Work Phone: 07-20-2022 15:48-0400 Systolic blood pressure 128 mm[Hg] Tamika Brown [employer] Work Phone: [facility] Work Phone: 07-06-2022 17:00-0400 Diastolic blood pressure 75 mm[Hg] Text Entry [facility] 07-06-2022 17:00-0400 Heart rate 68 /min Text Entry [facility] 07-06-2022 17:00-0400 Respiratory rate 16 /min Text Entry [facility] 07-06-2022 17:00-0400 SaO2% (BldA) [Mass fraction] 99 % Text Entry [facility] 07-06-2022 17:00-0400 Systolic blood pressure 109 mm[Hg] Text Entry [facility] 07-06-2022 13:50-0400 Body temperature 98.06 [degF] Text Entry [facility] 07-06-2022 13:50-0400 Body weight 78 kg Text Entry [facility] Encounters Encounter Date Encounter Type Care Provider Facility Start: 04-07-2025 End: 04-07-2025 ambulatory CHUY REDMAN DO Facility:[facility] Start: 04-07-2025 End: 04-07-2025 Patient encounter procedure CHUY REDMAN DO [facility] Start: 02-21-2025 End: 02-21-2025 ambulatory CHUY REDMAN DO Facility:[facility] Start: 02-21-2025 Encounter for genera l adult medical examination without abnormal findings CHUY REDMAN DO [facility] Start: 02-07-2025 End: 02-07-2025 ambulatory CHUY REDMAN DO Facility:[facility] Start: 12-05-2024 End: 12-05-2024 Emergency department patient visit ELISABETH VICENTE MD [facility] Start: 06-08-2023 Telephone encounter No Pcp [employer] [facility] Kristie Comment on above: Results Start: 06-07-2023 End: 06-08-2023 ambulatory HAYDEE ARAIZA Facility:[facility] Start: 06-07-2023 End: 06-07-2023 Patient encounter procedure Haydee Araiza MD Work Phone: [facility] Kristie Comment on above: Hyperglycemia (Prima ry Dx); Obesity, Class II, BMI 35-39.9 Start: 04-05-2023 ambulatory Haydee Araiza MD Work Phone: [facility] Start: 08-10-2022 Chart Update Tamika Brown Work Phone: [facility] 205 DO Work Phone: Start: 08-04-2022 ambulatory Ms. Tamika Brown Fac ility:[id number] Start: 07-22-2022 Chart Update Tamika Brown Work Phone: [facility] 205 DO Work Phone: Start: 07-20-2022 Office outpatient ne w 45 minutes Tamika Brown Work Phone: [facility] 205 DO Work Phone: Start: 07-20-2022 Patient encounter procedure Tamika Kevin [employer] Work Phone: [facility] Work Phone: Start: 07-20-2022 ambulatory Ms. Tamika Brown Fac ility:[id number] Start: 07-06-2022 End: 07-06-2022 Emergency department patient visit Sarah Gonzalezclare [facility] Emergency 04 Start: 05-04-2022 ambulatory Haydee Araiza MD Work Phone: [facility] Start: 01-22-2019 End: 01-22-2019 Patient encounter procedure Other Other [facility] Procedures Date Procedure Procedure Detail Performing Clinician Start: 04-30-2019 Colonoscopy Jose Luis Araiza MD Work Phone: Start: 03-18-2019 Mammography Jose Luis Araiza MD Work Phone: Cholecystectomy Tamika Brown [employer] Work Phone: Hysterectomy Tamika Brown APR N-[employer] Work Phone: Hysterectomy CHUY REDMAN D O Comment on above: rectecele, cystocele 2005 Repair of bladder Tamikaeryn Edwardsor e [employer] Work Phone: Repair of cystocele Tamika Mo ore [employer]ER-[employer] Work Phone: Repair of rectocele Tamika Mo ore [employer] Work Phone: Vaginoplasty CHUY VALENZUELAINS D O Comment on above: 2009 Plan of Treatment Date Care Activity Detail Author Start: 04-30-2029 Colonoscopy COLONOSCOPY [facility] Start: 04-30-2029 COLORECTAL CANCER SCREENING COLORECTAL CANCER SCREENING [facility] Start: 06-07-2028 LIPID SCREEN LIPID SCREEN [facility] Start: 06-07-2026 DIABETES SCREEN DIABETES SCREEN [facility] Start: 03-12-2024 LIPID SCREEN LIPID SCREEN [facility] Start: 07-07-2023 Influenza vaccination [facility] Start: 06-07-2023 End: 08-07-2023 Hemoglobin A1c in Blood [facility] Work Phone: Comment on above: Expected: 06/07/2023 , Expires: 08/07/2023 Start: 07-07-2022 Influenza vaccination INFLUENZ A (Season Ended) [facility] Start: 05-11-2022 COVID-19 VACCINE (4 - Moderna series) COVID-19 VACCINE (4 - Moderna series) [facility] Start: 03-12-2022 DIABETES SCREEN [facility] Start: 03-18-2020 Mammography MAMMOGRAM [facility] Start: 03-08-2019 Urine microalbumin profile DTAP,TDAP,TD (1 - Tdap) [facility] Start: 07-07-2018 Influenza vaccination INFLUENZA VACC INE (#1) [facility] Start: 2017 Protein mass conc COLON CANCER SCREENING DISCUSSION [facility] Start: 2017 SHINGRIX VACCINE (1 of 2) SHINGRIX VACCINE (1 of 2) [facility] Start: 2017 Zoster vaccine hzv l benito for subcutaneous use ZOSTER (SHINGLES) VACCINE (1 of 2) [facility] Start: 2012 COLOGUARD (FIT-DNA) COLOGUARD (FIT-D NA) [facility] Start: [address] COLONOGRAPHY [facility] Start: 2012 FECAL OCCULT BLOOD FECAL OCCULT BLOO D [facility] Start: 2012 SIGMOIDOSCOPY SIGMOIDOSCOPY [facility] Start: 2007 Fasting lipid profile LIPID SCREENIN G [facility] Start: 2007 Protein mass conc MAMMOGRAM SC REENING DISCUSSION [facility] Start: 1988 Screening for malign ant neoplasm of cervix PAP SMEAR DISCUSSION [facility] Start: 1986 Third diphtheria, tetanus and acellular pertussis (DTaP) vaccination TDAP (ADULT) [facility] Start: 1985 Tetanus vaccination TETANUS [facility] Start: 1980 HIV screening HIV SCREENING DISCUSSION [facility] Start: 1972 COVID-19 VACCINE (#1) COVID-19 VACCI NE (#1) [facility] Start: 1967 COVID-19 VACCINE (#1) COVID-19 VACCI NE (#1) [facility] Start: 1965 HEPATITIS B (1 of 3 - 3-dose series) HEPATITIS B (1 of 3 - 3-dose series) [facility] End: 05-04-2024 LACHO SCREENING LACHO SCREENING Radiology Routine Encounter for screening mammogram for breast cancer 1 Occurrences starting 04/05/2023 until 05/04/2024 [facility] Work Phone: Comment on above: 1 Occurrences starti ng 04/05/2023 until 05/04/2024 End: 06-03-2023 Screening mammography bi 2-view breast inc cad [facility] S[facility]ENING Radiology Routine Encounter for screening mammogram for breast cancer 1 Occurrences starting 05/04/2022 until 06/03/2023 [facility] Work Phone: Comment on above: 1 Occurrences starti ng 05/04/2022 until 06/03/2023 Immunizations Immunization Date Immunization Notes Care Provider Fa [facility] 08-25-2022 influenza virus vaccine, unspecified formulation CHUY REDMAN DO [facility] 08-25-2022 influenza, injectabl e, quadrivalent, preservative free Haydee Araiza MD Work Phone: [facility] 03-16-2022 Pfizer-BioNTech COVID-19 Vacc 30 MCG/0.3ML Intramuscular Suspension Tamika Brown [employer] Work Phone: [facility] Comment on above: Result Comment: 2024: TPV4 03-11-2021 Moderna COVID-19 Vaccine 100 MCG/0.5ML Intramuscular Suspension Tamika Brown [employer] DEF[employer] CONTROLLER[employer]™ Work Phone: [facility] Comment on above: Result Comment: 2024: TPV50 02-11-2021 Moderna COVID-19 Vaccine 100 MCG/0.5ML Intramuscular Suspension Tamika Brown [employer] Work Phone: [facility] Comment on above: Result Comment: 2024: TPV50 03-07-2019 tetanus and diphther ia toxoids, adsorbed, preservative free, for adult use (5 Lf of tetanus toxoid and 2 Lf of diphtheria toxoid) Haydee Araiza MD Work Phone: [facility] 08-20-2016 influenza virus vaccine, whole virus Haydee Araiza MD Work Phone: [facility] 08-06-2014 influenza virus vaccine, unspecified formulation CHUY REDMAN DO [facility] 08-06-2014 influenza, seasonal, injectable Tamika Brown [employer] Work Phone: [facility] Payers Date Payer Category Payer Unknown [id number] 2024 Unknown [id number] 2022 Private Health Insurance [id number] 2021 Private Health Insurance [id number] 2020 Unknown MARKOS DOSS PPO [id number] 2020-Present [phone] [address] [place] [address] PPO [id number] 2020 Unknown 1965 Unknown [id number] 1965 Unknown [id number] 1965 Unknown [id number] 1965 Unknown [id number] 1965 Unknown [id number] 1965 Unknown [id number] 1965 Unknown [id number] Self-pay [id number] Social History Date Type Detail [facility] Start: 1965 Sex Assigned At Not on file O [facility] Start: 03-07-2019 End: 02-07-2025 Tobacco smoking status NHIS Ex-smoker [facility] Comment on above: was not a consistant smoker, only when going out with friends. 1 pack would last 2-3 months. End: 03-07-2017 History of tobacco use Current smoker [facility] End: 03-07-2017 History of tobacco use Cigarette Smoker [facility] Start: 04-27-2020 End: 06-07-2023 Alcohol intake Current drinker of alcohol (finding) [facility] Start: 04-27-2020 End: 10-11-2020 Alcohol intake [facility] Start: 04-27-2020 History SDOH Alcohol Std Drinks 1 [facility] Start: 04-27-2020 History SDOH Social Connections Phone 5 [facility] Start: 04-27-2020 History SDOH Social Connections Get Together 3 [facility] Start: 04-27-2020 History SDOH Social Connections [facility] 2 [facility] Start: 04-27-2020 Education 15 [facility] Tobacco smoking consumption unknown [facility] Start: 03-07-2019 End: 06-07-2023 Tobacco use and exposure Smokeless tobacco non-user [facility] Work Phone: Start: 10-11-2020 End: 06-06-2023 Social connection and isolation panel [facility] Do you belong to any clubs or organizations such as islam groups, unions, fraternal or athletic groups, or school groups? No [facility] Are you now , , , , never or living with a partner? [facility] How often to you hav e a drink containing alcohol? Monthly or less [facility] How many standard dr inks containing alcohol do you have on a typical day? 1 or 2 [facility] How often do you hav e 6 or more drinks on 1 occasion? Never [facility] How hard is it for y ou to pay for the very basics like food, housing, medical care, and heating Not hard at all [facility] Do you feel stress - tense, restless, nervous, or anxious, or unable to sleep at night because your mind is troubled all the time - these days [OSQ] Rather much [facility] (I/We) worried faye er (my/our) food would run out before (I/we) got money to buy more. Never true [facility] Start: 12-05-2024 Tobacco smoking status Never s moked tobacco (finding) [facility] Sexual Orientation [facility] Sex Female (finding) [facility] Medical Equipment Procedure Code Equipment Code Equipment Origin al Text Equipment Identifier Dates Tvt Device Gynec are [id number] Start: 01-05-2010 Functional Status Date Assessment Result Facility 12-05-2024 Functional Status ID band on, Call device within reach [facility] Mental Status Date Assessment Result Facility 12-05-2024 Mental Status Oriented x [facility] Clinical [facility] 07-06-2022 to 12-11-2024 Note [...] Locations *1: This test was performed at: [facility], [address] [place] [address], [id number]- , [facility] 12-11-2024 Note . MICRO - Microbiology PROCEDURE: [...] Locations *1: This test was performed at: [facility], [address] [place] [address], [address] , [facility] 12-06-2024 Hospital Discharg e instructions Patient Education [...] loosen secretions in your nose and lungs. Rhnq-fxg-kpcmldc cold medicines will not make the flu [...] after getting better for a few days 6636-1767 [employer]. [address] [place] [address]. All rights reserved. This information is not intended as a substitute for professional medical care. Always follow your healthcare professional's instructions. Follow Up Care 12/05/2024 17:55:43 With:Call VICKY Avendano Pt. Refferral [phone] Address:Unknown When:2-4 days [facility] 12-05-2024 Note Discharge Instructions Thank you for allowing [facility] to assist you with your healthcare needs. [...] Up with Call VICKY Avendano Pt. Refferral [phone] When:Within 2-4 days Allergies Latex penicillin Medications [...] loosen secretions in your nose and lungs. Vyaq-lrm-ylsmsmz cold medicines will not make the flu [...] after getting better for a few days 5420-8433 [employer]. [address] [place] [address]. All rights reserved. This information is not intended as a substitute for professional medical care. Always follow your healthcare professional's instructions. Additional Information VACCINATE! IT SAVES LIVES! Members of the community who have not yet received the COVID-19 vaccine and would like to receive it can visit one of [facility] vaccine clinics. There are many vaccine clinic locations within the [facility]. For locations and available times, please visit [email or web address] [email or web address] It is important to note that some COVID mobile vaccine clinics are held outdoors and may be canceled in rainy or stormy conditions. To learn more about pediatric vaccinations (ages 5-11), we invite you to visit the [facility] webpage. https://www.[facility].org/p ages/2339-Dsorm-Bhbxkrjjbxl-Freq itzkae-Lmnve-Cnmaybnvx.html To learn more about the COVID-19 vaccine, we invite you to visit the CDC website for a list of frequently asked questions. https://www.cdc.gov/coronavirus/ 2019-ncov/vaccines/faq.html [facility] Patient Portal Access Instructions: Stay connected with your healthcare team and access your personal medical information anytime with the [employer] Patient Portal. If you would like a full copy of your medical records please contact the [facility] Medical Records Department Monday through Monday between 8a.m. and 4:30p.m. Please follow the directions below to access the portal: 1.Access the email account you provided upon registration to the [facility].2.Look for an invitation email from [facility].3.Open the email and access the invitation link: Accept Invitation to [facility]4.Fill in the required augustin to create your account. Sign into [email or web address] with your username and password that you [...] you will allow to register on the [employer] Patient Portal for access to your information. You can also access the [employer] Patient Portal on the [employer] garo. Simply click on Health Records under [...] Call your local pharmacy or go to http://bit.ly/5O8Mn0f to find one close to you.3.Make use of household items: Use cat litter or old coffee grounds to dispose medications if other options are not available. Mix your drugs with these household products, seal them in an airtight container and throw it into the garbage. Call [facility]: [phone] to be sure your drugs can be [...] aware that I should contact my doctor. 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 Signature: Date/Time: Relationship to Patient: Witness Name/Signature: Date/Time: [facility] 12-05-2024 Note Exam Date Time Procedure Performing Provider Status 12/05/24 8:42 PM XR Chest 1 View Contributor_system, SILVINA REESE; Auth (Verified) [id number] ORIGINAL EXAMINATION: ONE XRAY VIEW OF THE [...] 12/05/2024 10:09:22 PM Ordering Provider: ELISABETH VICENTE [facility]01-30-2025 Note* Exam Date Time Procedure Performing Provider Status 12/05/24 8:18 PM EKG [ED AOH] - CV ELISABETH VICENTE MD; Auth (Verified) ECG Final Report Sinus rhythm Anteroseptal infarct, age indeterminate Electronic Signature: ELISABETH VICENTE MD 12/05/2024 21:58:23 [facility]01-30-2025 Evaluation + Plan note Diagnostic Tests Pending * Blood Culture (bacterial) 12/05/24 * Blood Culture (bacterial) 12/05/24 [facility] 08-04-2023 Miscellaneous Notes* Telephone Encounter - Maggie [...] normal. No new rx. [facility] NoteHNO ID: [id number] Author: Haydee Araiza MD Service: ? Author Type: Physician Type: Progress Notes Filed: 06/07/2023 4:32 PM Note Text: Chief Complaint Patient presents with: Diabetes HPI Jeimy Henriqeuz is a 58 year old female who [...] Father CHF Hypertension Father Heart Maternal Grandfather MS Cancer Maternal Grandmother brain/ breast Patient Allergies [...] TESTING Discontinued HPV TESTING (more content not included)...[facility]08-02-2023 History of Present illness Narrative* Haydee Araiza [...] Father CHF Hypertension Father Heart Maternal Grandfather MS Cancer Maternal Grandmother brain/ breast Patient Allergies [...] NONFASTING Haydee Araiza MD [facility] NotePatient Outreach (INTMMN) JEIMY SAL ([id number]) 1965 F Date Time Provider Department 04/05/23 [...] for screening mammogram for breast cancer [Z12.31] Order(s):[facility] SCREENING [[id number]] Order #: [id number] FUTURE Prescriptions as of 04/10/2023 - risperiDONE [...] Abnormal mammogram [R92.8] 05/17/2016 Encounter Status:Closed by Milo, [employer] on 04/10/23[facility] 07-06-2022 History of Present illness Narrative* 57 [...] bipolar depression. * Mammogram: last one 2018, [facility] * Colonoscopy Done in 04/30/2019 [facility] Work Phone: 1(721) 430-898308-31-2022 History of Present illness Narrative* 57 year [...] Health maintenance: * Mammogram: last one 2018, [facility] * Pap:has had a hysterectomy * Colonoscopy Done in 04/30/2019 [facility] * Labs: Needs updated * Social Hx: * Tobacco: occasional * ETOH: 2-3/week * Drugs: denies * Caffeine: 2 cups/day [facility] 205 DO Work Phone: Evaluation + Plan note Future Appointments Appointment Date:05/13/2025 01:30:00 PM Scheduled Provider:CHUY REDMAN DO Location:[facility] Appointment Type: OV Future Scheduled Tests Radiology* MA Mammo Screening Bilateral w/ Pérez 02/07/25 [facility] Evaluation note* Diagnosis Encounter for screening mammogram for breast cancer [facility] Diagnosis Encounter for screening mammogram for breast cancer documented in this encounter [facility] note* Diagnosis Hyperglycemia- Primary Other abnormal glucose Obesity, Class II, BMI 35-39.9 Obesity, unspecified documented in this encounter [facility] course Narrative No data available for this section [facility] Discharge instructions No data available for this section [facility] Progress note No data available for this section [facility] Reason for referral (narrative)* Diagnostic Procedure Only (Routine) - Pending Review Specialty Diagnoses / Procedures Referred By Contac t Referred To Contact [facility] Diagnoses Encounter for screening mammogram for breast cancer Procedures LACHO SCREENING SCREENING MAMMOGRAPHY BI 2-VIEW BREAST INC Haydee Guzman MD [address] [place] [address] [facility] [address] [place] [address] Referral ID Status Reason Start Date Expiration Date Visits Requested Visits Authorized [id number] Pending Review Auto-Generat ed Referral 05/04/2022 06/03/2023 [facility] Diagnostic Procedure Only (Routine) - Pending Review Specialty Diagnoses / Procedures Referred By Torres t Referred To Contact [facility] Diagnoses Encounter for screening mammogram for breast cancer Procedures LACHO SCREENING SCREENING MAMMOGRAPHY BI 2-VIEW BREAST INC CAD Haydee Araiza MD [address] [place] [address] [facility] [address] [place] [address] Referral ID Status Reason Start Date Expiration Date Visits Requested Visits Authorized [id number] Pending Review Auto-Generat ed Referral 04/05/2023 05/04/2024 1 1 [facility] Summary Purpose Family History No Family History [...] FoundDocuments on File Type Date Recorded 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 Insurance Expl anation Advance Directive(s) 04/30/2019 6:30 AM Advance Directive(s) 04/10/2019 2:50 PM Advance Directive(s) 01/06/2010 9:53 PM Documents on File Type Date Recorded 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 Insurance Expl anation Advance Directive(s) 01/06/2010 9:53 PM Documents on File Type Date Recorded 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 Insurance Expl anation Advance Directive(s) 01/06/2010 9:53 PM Reason for Referral * UTI * UTI No data available for this section 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 Additional Source Comments INFORMATION SOURCE (unrecogn ized section and content) DATE CREATED AUTHOR 12/05/2021 [facility] DATE CREATED AUTHOR AUTHOR'S ORGANIZ ATION 08/03/2022 [facility] [place] DATE CREATED AUTHOR AUTHOR'S ORGANIZ ATION 08/06/2022 [employer] DATE CREATED AUTHOR AUTHOR'S ORGANIZ ATION 08/12/2022 [facility] DATE CREATED AUTHOR AUTHOR'S ORGANIZ ATION 06/10/2023 [facility] DATE CREATED AUTHOR AUTHOR'S ORGANIZ ATION 04/08/2025 [facility] Source Comments (unrecognize d section and content) In the event this informatio n is protected by the Federal Confidentiality of Alcohol and Drug Abuse Patient Records regulations: The Federal rules restrict any use of the information to criminally investigate or prosecute any alcohol or drug abuse patient.[facility] the event this information is protected by the Federal Confidentiality of Alcohol and Drug Abuse Patient Records regulations: The Federal rules restrict any use of the information to criminally investigate or prosecute any alcohol or drug abuse patient.[facility] the event this information is protected by the Federal Confidentiality of Alcohol and Drug Abuse Patient Records regulations: The Federal rules restrict any use of the information to criminally investigate or prosecute any alcohol or drug abuse patient.[facility] Hospital[facility] the event this information is protected by the Federal Confidentiality of Alcohol and Drug Abuse Patient Records regulations: The Federal rules restrict any use of the information to criminally investigate or prosecute any alcohol or drug abuse patient.[facility] Care Teams (unrecognized sec tion and content) 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 [employer] [facility]. provides no warranty or guarantee of the accuracy or completeness of information in this document.
[2025-09-21 15:04] LABS: Ionized Calcium Order 1.26
[2025-09-21] MEDS: Contrast Allergy Safety Check IV (15:21)
--- NOTE | 2025-09-21 16:45 | ECHOD_ITS ---
Reason For Study Reason For Study: TIA/CVA Procedure This was a 2D Doppler, Color Flow transthoracic echocardiogram. Exam performed portable in patient room. Left Ventricle Normal LV size. Left ventricular systolic function is normal. The estimated ejection fraction is 52 %. Stage 1 diastolic dysfunction. There is borderline global hypokinesis of the left ventricle. Right Ventricle Normal RV size. Normal systolic function. Atria Normal left atrium. Normal right atrium. Bubble contrast study is negative for PFO/ASD. Mitral Valve Normal mitral valve. Tricuspid Valve Normal tricuspid valve. Aortic Valve Normal aortic valve. Pulmonic Valve Normal pulmonic valve. Great Vessels Normal aortic root. The pulmonary artery is normal size. Inferior vena cava collapse with respiration. Pericardium/Pleural No pericardial effusion. Medication Performed a rapid injection of agitated mix of 9 cc saline and 1cc air to assess for atrial septal defect. MMode/2D Measurements & Calculations LVIDd: 4.5 cm IVSd: 0.81 cm Ao root diam: 3.1 cm LVIDs: 3.2 cm LVPWd: 0.78 cm FS: 28.7 % LAV(MOD-bp): 28.8 ml LVAd ap4: 23.0 cm2 SV(MOD-sp4): 30.1 ml LAV(MOD-bp) Indexed: 16.3 ml/m2 LVLd ap4: 7.4 cm SI(MOD-sp4): 17.1 ml/m2 LAV(MOD-sp2): 23.3 ml EDV(MOD-sp4): 60.8 ml LAV(MOD-sp4): 31.7 ml EDV(sp4-el): 61.2 ml LVAs ap4: 14.3 cm2 LVLs ap4: 5.9 cm ESV(MOD-sp4): 30.6 ml ESV(sp4-el): 29.4 ml EF(MOD-sp4): 49.6 % EF(sp4-el): 51.9 % SV(sp4-el): 31.8 ml LA A4 area: 15.0 cm2 LA dimension(2D): 3.7 cm RA A4 area: 10.1 cm2 Time Measurements MV dec time: 0.18 sec Doppler Measurements & Calculations MV E max taye: 66.0 cm/sec Lat Peak E' Taye: 12.5 cm/sec Med Peak E' Taye: 7.0 cm/sec MV A max taye: 75.8 cm/sec E/E' lat: 5.3 E/E' med: 9.4 MV E/A: 0.87 MV V2 max: 81.3 cm/sec MV dec slope: 388.7 cm/sec2 Ao V2 max: 162.1 cm/sec MV max P.6 mmHg Ao max P.5 mmHg MV V2 mean: 53.2 cm/sec Ao V2 mean: 111.7 cm/sec MV mean P.2 mmHg Ao mean P.7 mmHg MV V2 VTI: 33.3 cm Ao V2 VTI: 35.9 cm AV (velocity ratio): 0.73 LV V1 max: 116.2 cm/sec PA V2 max: 82.2 cm/sec LV V1 max P.4 mmHg PA V2 mean: 57.0 cm/sec LV V1 mean P.3 mmHg LV V1 mean: 85.6 cm/sec LV V1 VTI: 26.3 cm ECHO/Echo Complete Interpretation Summary Normal LV size. Left ventricular systolic function is normal. Bubble contrast study is negative for PFO/ASD. The estimated ejection fraction is 52 %. Stage 1 diastolic dysfunction. Ordering Physician: Kait Gonzalez Referring Physician: CHUY REDMAN Performed By: Yumiko Corral RCS
[2025-09-21 16:58] LABS: Troponin T High Sens 4 HR < 6 ng/L (<=14)
[2025-09-21] MEDS: Potassium Chloride 10mEq/100mL 10 MEQ/100 ML IV.SOLN. 100 MEQ IV BOLUS (17:54)
[2025-09-21 20:08] LABS: Anion Gap 9 (5-15); BUN 13 mg/dL (4-19); BUN/Creat Ratio 16.2 RATIO (10-20); Calcium,Total 9.7 mg/dL (7.6-11.0); Carbon Dioxide 24.7 mmol/L (21.0-32.0); Chloride 105 mmol/L (98-108); Estimated Creatinine Clearance 72.55 ml/min (50-250); Glucose 153 mg/dL (70-99); Potassium 4.0 mmol/L (3.3-5.1)
[2025-09-21] MEDS: Fluticasone 0.05% 1 SPRAY NASAL.SRY NASAL (21:20)
[2025-09-21] MEDS: 0.9% Saline Lock 10 ML Syringe IV (21:20)
[2025-09-22 01:15] VITALS: BP 88/66; PULSE 72; RESP 14; TEMP 36.6; O2SAT 96
[2025-09-22 05:15] VITALS: BP 102/71; PULSE 70; RESP 16; TEMP 36.8; O2SAT 99
[2025-09-22 06:38] VITALS: O2SAT 93
[2025-09-22 07:01] LABS: Hematocrit 39.9 % (37-47); Hemoglobin 13.1 g/dL (12.0-15.0); Immature Granulocytes Count 0.020 X10^3/uL (0.0-0.0); Mean Corp Hgb Conc 32.8 g/dL (32-36); Mean Corpuscular Volume 92.4 fL (81-99); Mean Platelet Vol. 9.7 fl (6.2-12.0); NRBC Flagged by Analyzer 0 % (0-5); Platelet Count 324 K/mm3 (150-450); RBC Distribution Width CV 13.4 % (11.6-14.6); RBC Distribution Width SD 46.3 fl (35.1-43.9); Red Blood Count 4.32 M/mm3 (4.2-5.4); White Blood Count 7.1 K/mm3 (4.4-11.0)
[2025-09-22 07:25] LABS: Anion Gap 9 (5-15); BUN 12 mg/dL (4-19); BUN/Creat Ratio 14.3 RATIO (10-20); Calcium,Total 9.0 mg/dL (7.6-11.0); Carbon Dioxide 24.4 mmol/L (21.0-32.0); Chloride 106 mmol/L (98-108); Cholesterol 143 mg/dL (<=200); Estimated Creatinine Clearance 65.81 ml/min (50-250); Glucose 122 mg/dL (70-99); Low Density Lipoprotein Calc. 86 mg/dL; Potassium 4.1 mmol/L (3.3-5.1); Triglycerides 60 mg/dL; Very Low Density Lipoprotein 12 mg/dL (5-40); cholesterol:hdl ratio screen 3.25
--- NOTE | 2025-09-22 08:29 | PCM.PN.HOSP ---
Reason for Visit Chief Complaint: stroke like symptoms Subjective Subjective Patient had these migrating circles within her visual field make it difficult for her to read. Was not in a static position. Then followed by headache. This is not typical of her remote history of migraines where she would get very sick and nauseated with throwing up and photophobia. Symptoms are now resolved. Objective Data Objective Data Vital Signs: Vital Signs Temp Pulse Resp BP Pulse Ox O2 Del Method 36.8 C 70 16 102/71 99 Room Air 09/22/25 05:15 09/22/25 05:15 09/22/25 05:15 09/22/25 05:15 09/22/25 05:15 09/22/25 05:15 Oxygen Delivery Method Room Air Weight: 77.9 kg Body Mass Index (BMI) 34.7 Intake & Output: Intake and Output for Last 24 Hours 09/20/25 09/21/25 09/22/25 23:59 23:59 23:59 Intake Total 1358.33 / 1358.33 300 / 300 Balance 1358.33 / 1358.33 300 / 300 Lab / Micro Data 09/22/25 06:18 09/22/25 06:18 Labs: Laboratory Results - last 24 hr 09/21/25 11:55: WBC 10.2, RBC 4.27, Hgb 13.0, Hct 39.2, MCV 91.8, MCH 30.4, MCHC 33.2, RDW Std Deviation 44.8 H, RDW Coeff of Radha 13.2, Plt Count 329, MPV 9.4, Immature Gran % (Auto) 0.400, Neut % (Auto) 65.6, Lymph % (Auto) 26.7, Haywood % (Auto) 6.6, Eos % (Auto) 0.4, Baso % (Auto) 0.3, Absolute Neuts (auto) 6.7, Absolute Lymphs (auto) 2.72, Nucleated RBC % 0, PT 13.3, INR 1.0, APTT 23.8 L, Sodium 137, Potassium 2.6 L*, Chloride 110 H, Carbon Dioxide 18.2 L, Anion Gap 10, BUN 10, Creatinine 0.61 L, Estim Creat Clear Calc 93.12, Est GFR (MDRD) Non-Af 103, BUN/Creatinine Ratio 15.9, Glucose 80, Hemoglobin A1c 5.4, Calcium 6.2 L*, Troponin T High Sens 6 09/21/25 12:42: POC Glucose 89 09/21/25 14:06: Magnesium 2.0, Troponin T Hi Sens 2 Hr 11 09/21/25 15:01: Ionized Calcium 1.26 09/21/25 16:35: Troponin T Hi Sens 4Hr < 6 09/21/25 17:57: POC Glucose 115 H 09/21/25 19:14: Sodium 139, Potassium 4.0, Chloride 105, Carbon Dioxide 24.7, Anion Gap 9, BUN 13, Creatinine 0.78, Estim Creat Clear Calc 72.55, Est GFR (MDRD) Non-Af 88, BUN/Creatinine Ratio 16.2, Glucose 153 H, Calcium 9.7 09/21/25 21:19: POC Glucose 131 H 09/22/25 06:18: WBC 7.1, RBC 4.32, Hgb 13.1, Hct 39.9, MCV 92.4, MCH 30.3, MCHC 32.8, RDW Std Deviation 46.3 H, RDW Coeff of Radha 13.4, Plt Count 324, MPV 9.7, Immature Gran % (Auto) 0.300, Neut % (Auto) 55.3, Lymph % (Auto) 35.3, Haywood % (Auto) 7.8, Eos % (Auto) 1.0, Baso % (Auto) 0.3, Absolute Neuts (auto) 3.9, Absolute Lymphs (auto) 2.49, Nucleated RBC % 0, Sodium 140, Potassium 4.1, Chloride 106, Carbon Dioxide 24.4, Anion Gap 9, BUN 12, Creatinine 0.86, Estim Creat Clear Calc 65.81, Est GFR (MDRD) Non-Af 78, BUN/Creatinine Ratio 14.3, Glucose 122 H, Calcium 9.0, Triglycerides 60, Cholesterol 143, LDL Cholesterol, Calc 86, VLDL Cholesterol 12, HDL Cholesterol 44, Cholesterol/HDL Ratio 3.25 09/22/25 06:37: POC Glucose 132 H Radiography Diagnostic Testing: Radiology Impression Brain CT 09/21/25 11:39 IMPRESSION: Unremarkable CT head without acute intracranial abnormalities. Stroke Alert: No acute intracranial abnormalities The critical findings in the findings and impression above were relayed directly by me by telephone to Jamin Joya on 09/21/2025 at 12:03 pm with readback verification. Reading Location: [facility] Head/Neck CTA 09/21/25 11:39 IMPRESSION: No CTA evidence of ICA or CCA stenosis No CTA evidence of intracranial stenosis or vaso occlusive disease No aneurysm or vascular malformation Patent vertebral arteries Reading Location: [facility] Physical Exam Const alert and no apparent distress Constitutional Narrative: Up in chair. Nontoxic. Psych affect normal Assessment & Plan Assessment/Plan (1) Change in vision: (2) Stroke-like symptoms: PLAN: Plan Migraine with aura MRI was negative for stroke. I discussed with neurology who felt her symptoms were consistent with aura and scotoma with her moving visual deficits. This was not consistent with a stroke nor did her MRI see a stroke. Neurology is recommend follow-up with neurology as outpatient particularly if she starts having recurrent migraines again like she did in the past. Neurology did explain to her that that her symptoms may be changed regards to migraine as she has gotten older. hypokalemia and hypocalcemia: Potassium is 2.6. Improved after replacement unclear if the electrolyte derangements were contributing factor to her developing a migraine. Did recommend that she follow-up labs to have her potassium and calcium checked. Type 2 diabetes mellitus: On Mounjaro 5 mg subcu weekly. Insulin sliding scale. ACT checks ACHS CODE STATUS: Full code NIHSS NIHSS Nursing Documentation NIHSS Nursing Documentation: NIHSS: Ischemic Stroke/TIA Start: 09/21/25 16:45 Text: For PCU Patients: NIH and Neuro Check every 4 Status: Active hours, PRN and with change in RN caregiver. Freq: [id number] Protocol: Activity Type Activity Date Activity User E-sign Co-sign Detail Recorded Client Recorded Date Recorded By Document 09/22/25 05:15 MG [id number] 09/22/25 05:32 MG 09/22/25 05:15 NIH Stroke Scale [NIHSS] A score of 0 is normal or asymptomatic . Total possible score is 42. Inpatient: RN or Physician to activate a stroke alert for onset of new stroke symptoms or with NIHSS increase >/= 3 points. Following change in neurological status, NIHSS will be performed per physician order or more frequently PRN. -1a. Level of Consciousness 0 - Alert; keenly responsive -1b. LOC Questions 0 - Answers BOTH questions correctly -1c. LOC Commands 0 - Performs BOTH tasks correctly -2. Best Gaze 0 - Normal -3. Visual 0 - No visual loss -4. Facial Palsy 0 - Normal symmetrical movements -5a. Left Arm 0 - No drift; arm holds 90 ( or 45) degrees for full 10 seconds -5b. Right Arm 0 - No drift; arm holds 90 ( or 45) degrees for full 10 seconds -6a. Left Leg 0 - No drift; leg holds 30- degree position for full 5 seconds -6b. Right Leg 0 - No drift; leg holds 30- degree position for full 5 seconds -7. Limb Ataxia 0 - Absent -8. Sensory 0 - Normal; no sensory loss -9. Best Language 0 - No aphasia; normal -10. Dysarthria 0 - Normal -11. Extinction and Inattention 0 - No abnormality -Total 0 Query Text:A score of 0 is normal or asymptomatic. Total possible score is 42 . ED: Notify Physician for NIHSS increase by > / = 3 points. Inpatient: RN or Physician to activate a stroke alert for NIHSS increase of > / = 3 points. Coma Scale [Assess] -Eye Opening Spontaneous -Motor Obeys Commands -Verbal Oriented [Total] -Coma Scale Total 15
[2025-09-22 08:32] VITALS: BP 101/69; PULSE 71; RESP 16; TEMP 36.7; O2SAT 97
[2025-09-22] MEDS: Fluticasone 0.05% 1 SPRAY NASAL.SRY NASAL (08:41)
--- NOTE | 2025-09-22 10:13 | CASEMGMT ---
Social Work Per imaging pt negative for stroke, therefore PHQ9 not completed. ZACK Fall
[2025-09-22 13:15] VITALS: BMI 34.7
--- NOTE | 2025-09-22 14:27 | CON.PCM.NE_ITS ---
Assessment and Plan: Stroke Assessment/Plan #transient binocular, bilateral visual scotoma- description is consistent with a classical migraine aura with scintiallating scotoma. Description does not fit a vascular territory and not consistent with a cerebrovascular event. Furthermore, brain MRI and CTA head/neck show no evidence of acute ischemia or an acute vascular lesion. -MRI brain without evidence of stroke or tumor -follow up on TTE read. If normal, then no additional inpatient work up needed -I discussed the high likelihood that current symptoms were due to migraine. Given high probabily for migrain as ulises cause and low probability of TIA, the patient deffered cardiac event monitor and ASA therapy. I counseled the patient to call 911 if were to develop future acute neurologic symptoms -Follow up with PCP in 1-2 weeks, follow up with outpatient neurology for migraine in 1 month -will sign off for now, call back if any changes HPI Consult Data Date of Consult: 09/22/25 HPI Narrative HPI Narrative: 60 yo F w PMH DM, fibromyalgia, and migraine presenting with transient visual change. LKW 1050 am on 09/21. Was picking up a box at work when felt a sudden head lynch and light headedness. Afterwards developed binocular scotomas with surrounding scintillating halos. She covered each eye and noticed it in both eyes. The halos were present in both visual augustin, but more so on the right. The started small and enlarged over several minutes before gradually resolving. The entire visual episode lasted 30 minutes. Afterwards she developed a headache and paresthesia around the L side of her jaw that spread over several minut and lasted for 10 minutes before resolving. Parestheisa described as a positive sensory phenomenom. ? SAHU described as located at base of skul. and across forehead. Described as a vice, not pounding.? No n/v/photophobia/phonophobia. ?Migraine history:?Has had migraines since the age of 7. When younger, would have frequent migraines, described as severe SAHU with phototphobia and nausea. Typically migraine triggered by not eating and worsened after . Headaches improved with age and no longer gets severe headaches. Stopped having menopausal symptoms for 5 years. Not taking ASA at home, only medication she takes mounjourno. [facility] Medical History (Updated 09/21/25 @ 17:18 by Alicia Fishman) Diabetes Medical History no medical history Home Medications ?Medication ?Instructions ?Recorded ?Last Taken ?Type hsyirhd-cpqrhasjkjwio-fwtcehbb 250 1 tab PO Q6H PRN pa in 09/21/25 09/18/25 History mg-250 mg-65 mg tablet (Excedrin Extra Strength) fluticasone propionate 50 1 spray intranasal BID 09/21 Unknown History mcg/actuation nasal spray,suspension tirzepatide 5 mg/0.5 mL 5 mg subcut QWEEK 09/21/25 1 11/14/24 History subcutaneous pen injector (Mouncarolro) Allergy/AdvReac Type Severity Reaction Status Date / Time adhesive Allergy Rash Verified 09/21/25 17:22 latex Allergy Rash Verified 09/21/25 11:36 acetaminophen (From AdvReac Other Verified 09/21/25 11:36 Darvocet-N 100) propoxyphene (From AdvReac Other Verified 09/21/25 11:36 Darvocet-N 100) tramadol (From Ultram) AdvReac Other Verified 09/21/25 11:36 Family History (Updated 09/21/25 @ 17:18 by Alicia Fishman) Mother Heart disease Brother Heart disease Father Heart disease Family History no significant family his Surgical History (Updated 09/21/25 @ 17:18 by Alicia Fishman) Hx of cholecystectomy H/O: hysterectomy Surgical History no surgical history Social History Smoking Status: Former smoker alcohol intake: current alcohol intake frequency: a few times a week Alcohol type: wine Vital Signs Vital Signs Vital Signs: 09/21/25 14:30 09/21/25 14:45 09/21/25 15:00 Temperature Temperature Source Pulse Rate Pulse Strength Respiratory Rate Respiratory Effort Respiratory Depth Respiratory Pattern Blood Pressure Blood Pressure Mean Blood Pressure Source Blood Pressure Position Blood Pressure Location Pulse Ox 99 98 100 Oxygen Delivery Method 09/21/25 15:00 09/21/25 15:15 09/21/25 16:00 Temperature Temperature Source Pulse Rate 82 Pulse Strength Respiratory Rate 18 Respiratory Effort Respiratory Depth Respiratory Pattern Blood Pressure 116/78 125/77 H Blood Pressure Mean 90 93 Blood Pressure Source Blood Pressure Position Blood Pressure Location Pulse Ox 99 95 Oxygen Delivery Method Room Air 09/21/25 16:57 09/21/25 21:00 09/21/25 21:30 Temperature 97.7 F L 98.1 F Temperature Source Oral Oral Pulse Rate 61 68 Pulse Strength Normal (2+) Respiratory Rate 16 16 Respiratory Effort Respiratory Depth Respiratory Pattern Blood Pressure 111/70 99/77 Blood Pressure Mean 83 84 Blood Pressure Source Monitor Monitor Blood Pressure Position Semi-Fowlers Semi-Fowlers Blood Pressure Location Right Arm Right Arm Pulse Ox 98 97 Oxygen Delivery Method Room Air Room Air 09/21/25 21:32 09/22/25 01:15 09/22/25 01:38 Temperature 97.8 F Temperature Source Oral Pulse Rate 72 Pulse Strength Respiratory Rate 14 Respiratory Effort Normal Non-Labored Normal Non-Labored Respiratory Depth Normal Normal Respiratory Pattern Normal Normal Blood Pressure 88/66 L Blood Pressure Mean 73 Blood Pressure Source Monitor Blood Pressure Position Semi-Fowlers Blood Pressure Location Right Arm Pulse Ox 96 Oxygen Delivery Method Room Air Room Air Room Air 09/22/25 05:15 09/22/25 06:38 09/22/25 08:32 Temperature 98.3 F 98.1 F Temperature Source Oral Oral Pulse Rate 70 71 Pulse Strength Respiratory Rate 16 16 Respiratory Effort Respiratory Depth Respiratory Pattern Blood Pressure 102/71 101/69 Blood Pressure Mean 81 79 Blood Pressure Source Monitor Monitor Blood Pressure Position Semi-Fowlers Semi-Fowlers Blood Pressure Location Left Arm Left Arm Pulse Ox 99 93 97 Oxygen Delivery Method Room Air Room Air Room Air 09/22/25 08:50 Temperature Temperature Source Pulse Rate Pulse Strength Normal (2+) Respiratory Rate Respiratory Effort Respiratory Depth Respiratory Pattern Blood Pressure Blood Pressure Mean Blood Pressure Source Blood Pressure Position Blood Pressure Location Pulse Ox Oxygen Delivery Method Weight Weight: 77.9 kg Body Mass Index (BMI) 34.7 EEG Results Procedure Details EEG Procedure Details: CHRISTIAN HENRIQUEZ is a 60 year old F with a past medical history of , who presents for evaluation of Electroencephalogram on DATE at TIME Physical Exam Narrative MS: awake, alert, oriented x 3, follows commands, able to name, no aphasia, no dysarthria CN: VFF, EOMI , no facial weakness, nml facial sensation M:? Antigravity in all extremities, no drift S: nml to LT in all extremities C: no dysmetria Lab / Micro Data 09/22/25 06:18 09/22/25 06:18 Labs: Laboratory Results - last 24 hr 09/21/25 11:55: Hemoglobin A1c 5.4 09/21/25 14:06: Magnesium 2.0, Troponin T Hi Sens 2 Hr 11 09/21/25 15:01: Ionized Calcium 1.26 09/21/25 16:35: Troponin T Hi Sens 4Hr < 6 09/21/25 17:57: POC Glucose 115 H 09/21/25 19:14: Sodium 139, Potassium 4.0, Chloride 105, Carbon Dioxide 24.7, Anion Gap 9, BUN 13, Creatinine 0.78, Estim Creat Clear Calc 72.55, Est GFR (MDRD) Non-Af 88, BUN/Creatinine Ratio 16.2, Glucose 153 H, Calcium 9.7 09/21/25 21:19: POC Glucose 131 H 09/22/25 06:18: WBC 7.1, RBC 4.32, Hgb 13.1, Hct 39.9, MCV 92.4, MCH 30.3, MCHC 32.8, RDW Std Deviation 46.3 H, RDW Coeff of Radha 13.4, Plt Count 324, MPV 9.7, Immature Gran % (Auto) 0.300, Neut % (Auto) 55.3, Lymph % (Auto) 35.3, [place] % (Auto) 7.8, Eos % (Auto) 1.0, Baso % (Auto) 0.3, Absolute Neuts (auto) 3.9, Absolute Lymphs (auto) 2.49, Nucleated RBC % 0, Sodium 140, Potassium 4.1, Chloride 106, Carbon Dioxide 24.4, Anion Gap 9, BUN 12, Creatinine 0.86, Estim Creat Clear Calc 65.81, Est GFR (MDRD) Non-Af 78, BUN/Creatinine Ratio 14.3, G lucose 122 H, Calcium 9.0, Triglycerides 60, Cholesterol 143, LDL Cholesterol, Calc 86, VLDL Cholesterol 12, HDL Cholesterol 44, Cholesterol/HDL Ratio 3.25 09/22/25 06:37: POC Glucose 132 H 09/22/25 11:25: POC Glucose 91 Imaging Radiology Impression Echocardiogram 09/21/25 16:45 Interpretation Summary Normal LV size. Left ventricular systolic function is normal. Bubble contrast study is negative for PFO/ASD. The estimated ejection fraction is 52 %. Stage 1 diastolic dysfunction. Ordering Physician: Kait Gonzalez Referring Physician: CHUY REDMAN Performed By: Yumiko Corral RCS Brain MRI 09/22/25 16:45 IMPRESSION: Few foci of hyperintense signal on T2 and FLAIR which are nonspecific but most likely due to chronic small-vessel ischemia. Otherwise, no acute brain abnormalities. Reading Location: [facility] Active Medications Active Medications Active Medications: Current Medications Generic Name Dose Route Start Last Admin Trade Name Freq PRN Reason Stop Dose Admin Acetaminophen/Aspirin/Caffeine 1 each 09/21/25 18:24 Aspirin/Acetaminophen/Caffeine 1 Each Tablet PO Q6H PRN pain Aspirin 81 mg 09/22/25 08:00 09/22/25 08:42 Aspirin 81 Mg Tab.Chew PO 81 mg BREAKFAST ANTONIO Administration Atorvastatin Calcium 80 mg 09/21/25 22:00 09/21/25 21:20 Atorvastatin Calcium 80 Mg Tablet PO 80 mg QHS ANTONIO Administration Fluticasone Propionate 1 spray 09/21/25 22:00 09/22/25 08:41 Fluticasone 0.05% 1 [place] Nasal.Sry NASAL 1 spray BID ANTONIO Administration Glucagon 1 mg 09/21/25 16:45 Glucagon 1 Mg/Ml Syringe IM X1 PRN HYPOGLYCEMIA Protocol Hydralazine HCl 5 mg 09/21/25 16:45 Hydralazine 20 Mg/Ml Vial IV 09/22/25 16:45 Q30M PRN maintain BP parameters with HR <60 Dextrose 250 mls @ 0 mls/hr 09/21/25 16:45 Dextrose 10%-Water IV .Q0M PRN HYPOGLYCEMIA Protocol As Directed Sodium Chloride 250 mls @ 15 mls/hr 09/21/25 17:03 IV .[id number] PRN Saline Flush Sodium Chloride 250 mls @ 15 mls/hr 09/21/25 17:03 IV .[id number] PRN Additional IVPB Infusion Insulin Human Lispro 0 unit 09/21/25 16:45 09/22/25 12:02 Insulin Lispro 100 Unit/Ml Insuln.Pen SC Not Given ACHS [facility] Protocol Iopamidol 0 ml 09/21/25 11:45 09/22/25 12:02 Contrast Allergy Safety Check IV Not Given X1 ANTONIO Labetalol HCl 10 - 20 mg 09/21/25 16:45 Labetalol 20 Mg/4 Ml Vial IV 09/22/25 16:45 Q10M PRN PRN maintain BP parameters with HR >/=60 Nitroglycerin 0.4 mg 09/21/25 16:45 Nitroglycerin (Inpatient Use) 0.4 Mg Tab.Subl SL Q5M PRN CARDIAC/CHEST PAIN Ondansetron HCl 4 mg 09/21/25 16:45 Ondansetron 4 Mg/2 Ml Vial IV Q8H PRN PRN NAUSEA/VOMITING Sodium Chloride 10 - 40 ml 09/21/25 17:03 09/21/25 21:20 0.9% Saline Lock 10 Ml Syringe IV 10 ml UD PRN Administration SALINE FLUSH NIHSS NIHSS Nursing Documentation NIHSS Nursing Documentation: NIHSS: Ischemic Stroke/TIA Start: 09/21/25 16:45 Text: For PCU Patients: NIH and Neuro Check every 4 Status: Complete hours, PRN and with change in RN caregiver. Freq: [id number] Protocol: Activity Type Activity Date Activity User E-sign Co-sign Detail Recorded Client Recorded Date Recorded By Document 09/22/25 08:38 [id number] 09/22/25 08:38 09/22/25 08:38 NIH Stroke Scale [NIHSS] A score of 0 is normal or asymptomatic . Total possible score is 42. Inpatient: RN or Physician to activate a stroke alert for onset of new stroke symptoms or with NIHSS increase >/= 3 points. Following change in neurological status, NIHSS will be performed per physician order or more frequently PRN. -1a. Level of Consciousness 0 - Alert; keenly responsive -1b. LOC Questions 0 - Answers BOTH questions correctly -1c. LOC Commands 0 - Performs BOTH tasks correctly -2. Best Gaze 0 - Normal -3. Visual 0 - No visual loss -4. Facial Palsy 0 - Normal symmetrical movements -5a. Left Arm 0 - No drift; arm holds 90 ( or 45) degrees for full 10 seconds -5b. Right Arm 0 - No drift; arm holds 90 ( or 45) degrees for full 10 seconds -6a. Left Leg 0 - No drift; leg holds 30- degree position for full 5 seconds -6b. Right Leg 0 - No drift; leg holds 30- degree position for full 5 seconds -7. Limb Ataxia 0 - Absent -8. Sensory 0 - Normal; no sensory loss -9. Best Language 0 - No aphasia; normal -10. Dysarthria 0 - Normal -11. Extinction and Inattention 0 - No abnormality -Total 0 Query Text:A score of 0 is normal or asymptomatic. Total possible score is 42 . ED: Notify Physician for NIHSS increase by > / = 3 points. Inpatient: RN or Physician to activate a stroke alert for NIHSS increase of > / = 3 points. Coma Scale [Assess] -Eye Opening Spontaneous -Motor Obeys Commands -Verbal Oriented [Total] -Coma Scale Total 15
--- NOTE | 2025-09-22 15:12 | DS.PCM_ITS ---
Providers Date of Admission: 09/21/25 Primary Care Physician: Dr. Deniz Redman, Consultations 09/21/25 16:45 Consult: Tele-Neurology Routine Consulting Provider: [facility] Reason for Consult: Acute Ischemic Stroke/TIA EMERGENT Consult: No MD Notified: Yes Date Notified: 09/21/25 Time Notified: 16:46 Method of Notification: Answering Service Nursing Unit Staff Notify [facility] of Tele-Neurology Consult: Yes Reason For Visit: STROKE LIKE SYMPTOMS Diagnosis Discharge Diagnosis (1) Change in vision: Status: Acute Code(s): H53.9 - Unspecified visual disturbance (2) Stroke-like symptoms: Status: Acute Code(s): R29.90 - Unspecified symptoms and signs involving the nervous system Plan Migraine with aura * MRI was negative for stroke. I discussed with neurology who felt her symptoms were consistent with aura and scotoma with her moving visual deficits. This was not consistent with a stroke nor did her MRI see a stroke. Neurology is recommend follow-up with neurology as outpatient particularly if she starts having recurrent migraines again like she did in the past. Neurology did explain to her that that her symptoms may be changed regards to migraine as she has gotten older. hypokalemia and hypocalcemia: * Potassium is 2.6. Improved after replacement unclear if the electrolyte derangements were contributing factor to her developing a migraine. Did recommend that she follow-up labs to have her potassium and calcium checked. Type 2 diabetes mellitus: On Mounjaro 5 mg subcu weekly. Insulin sliding scale. ACT checks ACHS CODE STATUS: Full code Medications at Discharge Home Medications jipzwcz-qwswbhgnvntbm-uvevldwg 250 mg-250 mg-65 mg tablet (Excedrin Extra Strength) 1 tab PO Q6H PRN pain 09/21/25 fluticasone propionate 50 mcg/actuation nasal spray,suspension 1 spray intranasal BID 09/21/25 tirzepatide 5 mg/0.5 mL subcutaneous pen injector (Mounjaro) 5 mg subcut QWEEK 09/21/25 Hospital Course Operations None Procedures 2-D Echocardiogram Summary of Care Provided Hospital Course: Greater than 30 minutes spent on discharge This is a 60-year-old female presents with visual changes. Patient was looking at her phone and then noticed that these spots were in her visual field but they were moving. Made it difficult for her to read. She was concerned this could be a stroke so she presented to the emergency room. Symptoms resolved spontaneously but then after the potential symptoms resolved that she started having a headache. She has had a history of severe migraines in the past that were associated with nausea and vomiting but she never had any nausea or vomiting with this. Patient underwent MRI of his neck for stroke. She was seen by [facility] who felt that her symptoms were aura with a migraine. Patient to follow-up with neurology as outpatient. She also had severe hypocalcemia and hypokalemia. Unclear why those were an issue but those were replaced and resolved. Recommend that she have those followed up as outpatient. Unclear if that may have been a nidus for her developing a migraine. Weight / BMI Weight Weight: 77.9 kg Body Mass Index (BMI) 34.7 ABG / Lab / Microbiology Data 09/22/25 06:18 09/22/25 06:18 Laboratory: Laboratory Results - last 24 hr 09/21/25 16:35: Troponin T Hi Sens 4Hr < 6 09/21/25 17:57: POC Glucose 115 H 09/21/25 19:14: Sodium 139, Potassium 4.0, Chloride 105, Carbon Dioxide 24.7, Anion Gap 9, BUN 13, Creatinine 0.78, Estim Creat Clear Calc 72.55, Est GFR (MDRD) Non-Af 88, BUN/Creatinine Ratio 16.2, Glucose 153 H, Calcium 9.7 09/21/25 21:19: POC Glucose 131 H 09/22/25 06:18: WBC 7.1, RBC 4.32, Hgb 13.1, Hct 39.9, MCV 92.4, MCH 30.3, MCHC 32.8, RDW Std Deviation 46.3 H, RDW Coeff of Radha 13.4, Plt Count 324, MPV 9.7, Immature Gran % (Auto) 0.300, Neut % (Auto) 55.3, Lymph % (Auto) 35.3, [place] % (Auto) 7.8, Eos % (Auto) 1.0, Baso % (Auto) 0.3, Absolute Neuts (auto) 3.9, Absolute Lymphs (auto) 2.49, Nucleated RBC % 0, Sodium 140, Potassium 4.1, Chloride 106, Carbon Dioxide 24.4, Anion Gap 9, BUN 12, Creatinine 0.86, Estim Creat Clear Calc 65.81, Est GFR (MDRD) Non-Af 78, BUN/Creatinine Ratio 14.3, G lucose 122 H, Calcium 9.0, Triglycerides 60, Cholesterol 143, LDL Cholesterol, Calc 86, VLDL Cholesterol 12, HDL Cholesterol 44, Cholesterol/HDL Ratio 3.25 09/22/25 06:37: POC Glucose 132 H 09/22/25 11:25: POC Glucose 91 Radiography Diagnostic Testing: Radiology Impression Echocardiogram 09/21/25 16:45 Interpretation Summary Normal LV size. Left ventricular systolic function is normal. Bubble contrast study is negative for PFO/ASD. The estimated ejection fraction is 52 %. Stage 1 diastolic dysfunction. Ordering Physician: Kait Gonzalez Referring Physician: DENIZ REDMAN Performed By: Yumiko Corral RCS Brain MRI 09/22/25 16:45 IMPRESSION: Few foci of hyperintense signal on T2 and FLAIR which are nonspecific but most likely due to chronic small-vessel ischemia. Otherwise, no acute brain abnormalities. Reading Location: [facility] D/C Instructions DC O2, CPAP, BIPAP Needs Home O2 Discharge instructions: No Meaningful Use Info Meaningful Use Meaningful Use Diagnoses (Choose all that apply): None applicable Discharge Plan Admission Admit Date/Time: 09/21/25 14:29 Primary Reason for Your Visit: Migraine Attending Provider: Maximilian Easton Primary Care Provider: Deniz Redman Consulting Providers: Barrie Sprague; Melissa Lei; Trice Rolle; Remedios Buitrago; Roxanna Joseph; Fitz Hardin; Nellie Street; Cesar Carrera; Edgar Combs; Natanael Gramajo; Eleanor Strong; Rosaline Haynes; Tomas Forrest; Alexandra Elias; Nikolas Huitorn; Keshia Munroe; Aaron Phan; Roxanne Hall; Brandon Vanegas; Soraida Baptiste; Rodrigue Paz; Kait Gonzalez Instructions Additional Instructions / Restrictions: Neurology felt you had migraine with your visual symptoms. Please follow-up neurology as outpatient. Your potassium and calcium are low as well. I would like for you to have those followed up later this week to make sure that those are staying stable. It is unclear if those being low contributed to having a migraine or not. Discharge Orders/Prescriptions Prescriptions: Continued fluticasone propionate 50 mcg/actuation spray,suspension 1 spray INTRANASAL BID Mounjaro 5 mg/0.5 mL pen injector 5 mg subcut QWEEK tniofoa-gefrhdcqivtxm-pfeiwnpe [Excedrin Extra Strength] 250-250-65 mg tablet 1 tab PO Q6H PRN (Reason: pain) Referrals / Follow Up: [facility] [Provider Group] - Within 1 Month Jose Luis Araiza MD [Non-Staff, Family Practice] Deniz Redman DO [Primary Care Provider, Medical] - Within 1 Week Disposition Disposition (needs filled in before D/C Order can be placed): Home, Self Care Charges/Coding Visit Charges Inpatient E&M: 14317 Disch Hosp >30min
--- NOTE | 2025-09-22 15:30 | CHAPLAIN ---
Type of Pastoral Visit ___ Initial Visit ___ Follow-up Visit ___ On-call Visit ___ General Patient Visit ___ Spiritual Assessment ___ Family Conference ___ Bereavement ___ Rapid Response ___ Code Blue ___ Other (describe below) Pastoral Care Referral From ___ Patient ___ Family ___ Nurse ___ Physician ___ Mortar Mixer ___ Staff Technologist ___ Other (describe below) Sacrament/Intervention ___ Active listening ___ Anointing ___ Sikh ___ Bereavement ___ Communion ___ Mayuri exploration ___ ___ Life review ___ Prayer ___ Reconciliation ___ Sacrament of Sick ___ Supportive presence ___ Wedding ___ Other (describe below) Pastoral Comments patient is eating her lunch and daughter is with her; pt denies having needs at this time and states that she is doing much better since yesterday; pt expects to be discharged; pt says thank you for coming and asking
--- NOTE | 2025-09-22 15:35 | PHA.DC.MR.R ---
Pharmacy ID Med Reconciliation Pharmacy Service has performed discharge medication reconciliation for this patient. The patient's discharge medication list was reviewed for discrepancies and discrepancies were resolved. Medications at Discharge Home Medications lbbzpnr-nornhjxcvnufw-uiwqgaee 250 mg-250 mg-65 mg tablet (Excedrin Extra Strength) 1 tab PO Q6H PRN pain 09/21/25 fluticasone propionate 50 mcg/actuation nasal spray,suspension 1 spray intranasal BID 09/21/25 tirzepatide 5 mg/0.5 mL subcutaneous pen injector (Mounjaro) 5 mg subcut QWEEK 09/21/25
--- NOTE | 2025-09-22 15:54 | CASEMGMT ---
Patient has order for discharge. RN CM in to discuss needs at discharge. Patient denies needs or help at discharge. Patient had no further questions or concerns.
--- NOTE | 2025-09-22 16:45 | MRI_ITS ---
PROCEDURE: BRAIN WITHOUT CONTRAST 09/22/2025 REASON FOR EXAM: BLURRED VISION TECHNIQUE: Procedure Code: MRIBR Modality: MR Procedure: BRAIN WITHOUT CONTRAST Multiplanar and multisequence images were obtained. COMPARISON: CT head September 21, 2025 FINDINGS: Brain: No restricted diffusion. No hemorrhage. No mass-effect or mass-effect or midline shift. The craniocervical junction is unremarkable. A few foci of hyperintense signal on T2 and FLAIR in the white matter which are nonspecific but most likely due to chronic small-vessel ischemia. The orbits are unremarkable. Ventricles: Unremarkable Major Intracranial Vessels: Patent Sinuses: Clear Mastoids: Clear. MRI/Brain without Contrast IMPRESSION: Few foci of hyperintense signal on T2 and FLAIR which are nonspecific but most likely due to chronic small-vessel ischemia. Otherwise, no acute brain abnormalities. Reading Location: [facility]
== END 2025-09-22 16:41 | disposition home or self-care (01) ==
LOC: ED 14:18 → PCU 14:47
PROVIDERS: Admitting Provider Student in an Organized Health Care Education/Training Program; Emergency Provider Emergency Medicine
DX: G43.109 Migraine with aura, not intractable, without status migrainosus (principal); E11.9 Type 2 diabetes mellitus without complications; E87.6 Hypokalemia; H53.9 Unspecified visual disturbance; Z79.85 Long-term (current) use of injectable non-insulin antidiabetic drugs; I10 Essential (primary) hypertension; E83.51 Hypocalcemia; Z87.891 Personal history of nicotine dependence; J45.909 Unspecified asthma, uncomplicated
CPT/HCPCS: 36415; 70450; 70496; 70498; 70551; 80048; 80061; 82330; 82962; 83036; 83735; 84484; 85025; 85610; 85730; 93005; 93306; 96361; 96374; 96375; 99221; 99285; Q9967; A4216; G0378; J0612